=== PATIENT | female | born 1950 | race Caucasian/White ===

== ENCOUNTER 2019-12-09 08:53 | Outpatient (CLI) | payer MEDICARE, SELFPAY ==
--- NOTE | ~2019-12-09 | XR_ITS ---
EXAMINATION: XR lumbar spine 2-3V DATE: 12/09/2019 09:30 INDICATION: Dorsalgia unspecified TECHNIQUE: Anteroposterior and lateral views of the lumbar spine, and cone-down lateral view of the l umbosacral junction were obtained. COMPARISON: 12/17/2017 FINDINGS: There are chronic burst fractures in the lower thoracic spine and at L1. A chronic compress ion fracture of L3 is noted. No acute lumbar fracture is identified. There is chronic moderate loss o f intervertebral disc space height at L3-4. Vertebral body alignment is maintained. Small degenerativ e osteophytes project from the anterior endplates of multiple vertebral bodies. There is severe facet osteoarthritis of the lower lumbar spine. The bowel gas pattern is normal. A moderate volume of colo honey stool is present. Mild hip osteoarthritis is noted. IMPRESSION: 1. Chronic fractures in the lower thoracic and lumbar spine without acute findings or significant int erval change. Reviewed, dictated and finalized at location A. IMPRESSION: 1. Chronic fractures in the lower thoracic and lumbar spine without acute findi ngs or significant interval change.
--- NOTE | ~2019-12-09 | XR_ITS ---
EXAMINATION: XR hip BI 2V w AP pelvis DATE: 12/09/2019 09:30 INDICATION: Dorsalgia unspecified, pain after fall TECHNIQUE: AP view of the pelvis and two views of each hip were obtained. COMPARISON: None. FINDINGS: Bone alignment is normal. There is no fracture. Mild hip osteoarthritis is noted. The soft tissues are unremarkable. IMPRESSION: 1. Mild osteoarthritis of the hips. Reviewed, dictated and finalized at location A.
== END 2019-12-09 08:54 | disposition home or self-care (01) ==
PROVIDERS: PCP Family Medicine; Visit Provider Physician Assistant
DX: M54.9 Dorsalgia, unspecified (principal); W19.XXXA Unspecified fall, initial encounter; M16.0 Bilateral primary osteoarthritis of hip; M84.48XA Pathological fracture, other site, initial encounter for fracture
CPT/HCPCS: 72100; 73521

== ENCOUNTER 2020-05-01 11:26 | Emergency (ER) | payer MEDICARE, SELFPAY ==
--- NOTE | 2020-05-01 11:57 | ED.FEMALEGU ---
HPI - Female Genitourinary General Chief complaint: Urogenital-Female Stated complaint: pos uti Time Seen by Provider: 05/01/20 11:57 Source: patient Mode of arrival: ambulatory Limitations: physical limitation History of Present Illness HPI Narrative: Michelle Hanley is a 69 yo female with PMH of chronic back pain, multiple myeloma, and HTN, high cholesterol, with symptoms for 4 days of frequency and voiding small amounts no abdominal pain. She also has excessive nasal drainage and nose is bleeding when blowing nose. During discussion with patient and her medical oncologist called in the room and her blood results from labs this morning have returned patient has pancytopenia with a platelet count of 18,000 and ANC of 9000. She is to be discharged from this facility and sent to [facility] emergency room for emergent admission for antibiotics and further work-up. I talked with her who agrees to transport her to mobile she lives 3 minutes from the [facility] so she could check her car home and he is going to drive her hospital. Patient is able to drive; hours symptoms are as described in the initial paragraph. Related Data Home Medications Medication Instructions Recorded Confirmed alprazolam [Xanax] 5 mg PO DAILY 05/01/20 05/01/20 colesevelam 3,750 mg PO DAILY 05/01/20 05/01/20 lenalidomide [Revlimid] 10 mg PO DAILY 05/01/20 05/01/20 Allergies Allergy/AdvReac Type Severity Reaction Status Date / Time Influenza Virus Vaccines Allergy Unknown Unknown Verified 05/01/20 12:00 Review of Systems Review of Systems: Narrative: CONSTITUTIONAL: Denies fever, chills, sweats. EYES: Denies visual changes, redness, discharge. ENT: Has rhinorrhea, no congestion, sore throat, otalgia. CARDIOVASCULAR: Denies chest pain, palpitations, edema. RESPIRATORY: Denies dyspnea, wheezing, cough GASTROINTESTINAL: Denies abdominal pain, nausea, vomiting, diarrhea. GENITOURINARY: Has dysuria, hematuria, abnormal discharge SKIN: Denies rash or itching. NEUROLOGIC: Denies numbness, or focal weakness. PSYCHIATRIC: Denies anxiety or depression. [facility], [facility] Past Medical History Medical History Essential (primary) hypertension Multiple myeloma Family History Family History Other Hypertension Social History Social History Smoking status: Former smoker Alcohol intake: current Comments At time of signature, I agree with nursing past medical, surgical, social and family history. There is no relevant family history pertinent to the presenting complaint. Exam Narrative: Exam Narrative: GENERAL: This is a well-nourished, well-developed patient, in mild distress. HEAD: normocephalic, atraumatic. EYES: Sclera clear/white. Vision is grossly intact. EARS: External ears normal, . Hearing grossly intact. NOSE: External nose normal without nasal discharge, nares without redness, no rhinorrhea. THROAT: Mucous membranes moist, NECK: Neck supple, CARDIOVASCULAR: Regular rate and rhythm without murmurs, gallops, or rubs. RESPIRATORY: Clear to auscultation. Breath sounds equal bilaterally. No wheezes, rales, or rhonchi. GASTROINTESTINAL: Abdomen soft, SKIN: warm, intact with no suspicious lesions or rash, good texture and turgor. NEURO: awake, alert, and oriented to person, place and time. There were no obvious focal neurologic abnormalities. Steady gait; mild tremor EXTREMITIES: Normal range of motion. BACK: Nontender without deformity Course Course Emergency Course: Patient to take her car home where her will take her directly to note [facility] - Female Genitourinary Differential Diagnosis Differential diagnosis: Likely urinary tract infection, vaginitis, cystitis and other (Has pancytopenia) Lab Data Labs: Urine Glucose Negative
== END 2020-05-01 12:56 | disposition home or self-care (01) ==
PROVIDERS: Emergency Provider Nurse Practitioner; PCP Family Medicine
DX: D61.818 Other pancytopenia (principal); Z87.891 Personal history of nicotine dependence; I10 Essential (primary) hypertension; E78.00 Pure hypercholesterolemia, unspecified; Z85.79 Personal history of other malignant neoplasms of lymphoid, hematopoietic and related tissues
CPT/HCPCS: 81003; 87077; 87086; 87088; 99213; G0463

== ENCOUNTER 2022-01-29 09:58 | Emergency (ER) | payer MEDICARE, SELFPAY ==
--- NOTE | ~2022-01-29 | XR_ITS ---
EXAMINATION: XR chest 2V 01/29/2022 11:01 INDICATION: Cough with fever PROCEDURE: AP portable chest COMPARISON: Comparison to multiple prior studies sequentially, with oldest reviewed study dated 04/2014. FINDINGS: The lungs are clear. The cardiomediastinal silhouette is within normal limits. There are no pleural effusions. There is no pneumothorax suspected. There is a calcification overlying the le ft lower chest corresponding to breast calcifications seen on prior CT. Port catheter tip in the SVC. There is scoliosis. IMPRESSION: 1: NO ACUTE CARDIOPULMONARY DISEASE. Reviewed, dictated and finalized at location A. CE SUPPORT CLERK
[2022-01-29 10:37] VITALS: BP 138/84; PULSE 122; RESP 16; TEMP 38.2; O2SAT 97
--- NOTE | 2022-01-29 11:23 | ED.GENADULT ---
HPI - General Adult General Chief complaint: Upper Respiratory Infection Stated complaint: cough,fever,runny nose,congestion Source: patient Mode of arrival: ambulatory Limitations: no limitations History of Present Illness HPI narrative: patient presents for evaluation of sick symptoms since the middle of this past week. Symptoms include productive cough of yellow sputum, sinus congestion, mucopurulent discharge from the nares, fatigue, and low-grade fever. T-max 100.4? F. No nausea, vomiting or diarrhea. She spent time with her grandchildren over and is wondering whether the exposed her to anything. She has a history of leukemia and multiple myeloma, status post chemotherapy, currently in remission. She has an upcoming appt with her oncologist. She states that they were aware of her symptoms and did not feel any treatment was indicated as she was afebrile to that time. She does not smoke. She states her has a chronic cough. She had COVID in May of this year. She took a home COVID test earlier this week which was negative. Related Data Home Medications Medication Instructions Recorded Confirmed colesevelam 3.75 gram oral powder 3,750 mg PO DAILY 05/01/20 05/01/20 packet lenalidomide 10 mg capsule 10 mg PO DAILY 05/01/20 05/01/20 (Revlimid) acyclovir 400 mg tablet mg 01/29/22 mercaptopurine 50 mg tablet mg 01/29/22 methotrexate sodium 2.5 mg tablet mg 01/29/22 nystatin 100,000 unit/mL oral 01/29/22 suspension pantoprazole 40 mg tablet,delayed mg PO 01/29/22 release potassium chloride 20 mEq meq PO 01/29/22 tablet,extended release(part/cryst) prednisone 50 mg tablet mg 01/29/22 Allergies Allergy/AdvReac Type Severity Reaction Status Date / Time Influenza Virus Vaccines Allergy Unknown Unknown Verified 01/29/22 10:27 Review of Systems Review of Systems: CONSTITUTIONAL: Reports fatigue and low-grade fever. Denies chills, or sweats. EYES: Denies visual changes, redness, or discharge. ENT: Reports sinus congestion, mucopurulent discharge from the nares and sore throat. CARDIOVASCULAR: Denies chest pain, palpitations, or edema. RESPIRATORY: Reports productive cough of yellow/green sputum. Denies shortness of breath. GASTROINTESTINAL: Reports chronic diarrhea, unchanged from her baseline. Denies abdominal pain, nausea, vomiting SKIN: Denies rash or itching. MUSCULOSKELETAL: Denies back pain, joint pain, or myalgia. NEUROLOGIC: Denies headache, numbness, dizziness, or weakness. PSYCHIATRIC: Denies anxiety or depression. [facility] Past Medical History Medical History (Updated 01/29/22 @ 11:50 by MICHAEL Hurtado, ) Essential (primary) hypertension Leukemia Multiple myeloma Surgical History Surgical History No pertinent past surgical history Family History Family History Mother Family history non-contributory Other Hypertension Social History Social History Smoking status: Former smoker Alcohol intake: current Substance use: never Living arrangements: with family Gender identity (if verbalized by the patient): Female Sexual Orientation (if Verbalized by the Patient): Straight or Heterosexual Spiritual care concerns: No Exam Narrative: GENERAL: Well-appearing, well-nourished, and in no acute distress. HEAD: Normocephalic, atraumatic. EYES: PERRLA and EOMI. ENT: Nares clear, no rhinorrhea or epistaxis. Mucous membranes moist. Oropharynx without tonsillar hypertrophy exudate or other lesions. Bilateral TMs pearly jacobson nonbulging NECK: Supple. No adenopathy or masses. No carotid bruits or JVD CHEST: cough present on exam. Clear to auscultation. No respiratory distress. No wheezes rales or rhonchi HEART: Regular rate and rhythm. No murmur heard. N
== END 2022-01-29 12:00 | disposition home or self-care (01) ==
PROVIDERS: Emergency Provider Nurse Practitioner; PCP Family Medicine
DX: J32.9 Chronic sinusitis, unspecified (principal); I10 Essential (primary) hypertension; Z85.6 Personal history of leukemia; Z87.891 Personal history of nicotine dependence
CPT/HCPCS: 71046; 87804; 99213; G0463

== ENCOUNTER → 2022-05-26 11:12 | Outpatient (CLI) | payer MEDICARE, SELFPAY ==
--- NOTE | ~2022-05-26 | XR_ITS ---
Right wrist Technique: PA, oblique, lateral, and ulnar deviation views were obtained. Clinical History: Swelling, mass Findings: No acute fracture or dislocation is seen. Osseous alignment is anatomic. Joint spaces are p reserved. Soft tissues are unremarkable. Impression: Unremarkable right wrist radiographs. Reviewed, dictated and finalized at location . Impression: Unremarkable right wrist radiographs.
== END ==
PROVIDERS: PCP Family Medicine; Visit Provider Physician Assistant
DX: R22.31 Localized swelling, mass and lump, right upper limb (principal)
CPT/HCPCS: 73110

== ENCOUNTER 2023-02-08 10:30 | Outpatient (RCR) | payer MEDICARE, SELFPAY ==
--- NOTE | 2023-01-31 13:34 | OTOPEVAL1 ---
Assessment and note entered by Ruslan Cunha, LORAINE/Amparo, CHT Evaluation Information Assessment Status Evaluation Diagnosis de Quervain's tenosynovitis, right wrist Subjective Information Patient reports experiencing symptoms for about the last 6 months. She had a round of therapy and this helped, however her had a shoulder replacement about a month ago and she's had to help him with his exercises and this has made her symptoms return. She had an injection last Monday 01/22 and since then she has been feeling very little pain. She has a wrist immobilizer and wears it at night and with activity during the day. Reported Pain Level Pain Score 0: Self Report Additional Pain Score Comments No pain at rest. In the last week the worst her pain has felt is 3/10. Assessment OT Clinical Summary Patient referred to OT with right wrist pain and dx of de Quervain's tenosynovitis, which impacts right hand use with ADLs. Skilled OT indicated to reduce pain and improve functional strength through use of modalities, manual therapy, and therapeutic exercise. Plan of Care Interventions Therapeutic Exercise,Manual Therapy,Hot Pack/Cold Pack,Ultrasound,Paraffin OT Services Indicated Yes Treatment Frequency and 1-2x/week for 4 weeks Duration These treatments will address the objective and functional deficits as defined above. The patient will be advanced safely and appropriately in order for the patient to progress towards his/her prior level of function. Additional exercises will be introduced and as well as a comprehensive home exercise program upon discharge, if needed, ?to ensure carryover of functional gains achieved in the clinic. This treatment plan has been reviewed and agreement upon by the patient.
--- NOTE | 2023-02-08 11:18 | OTOPDC ---
Assessment and note entered by LORAINE Barrett/Amparo, CHT Discharge Notification 02/08/23 Diagnosis de Quervain's tenosynovitis, right wrist Subjective Information Patient presents today on her 3rd OT treatment session requesting to cancel her remaining appointments. She states she's doing well and this time of year is really busy for her. She verbalized excellent understanding of HEP, immobilizer schedule, and utilizing heat/ice. Patient reporting she has been wearing the wrist immobilizer at night and during the day with any sort of lifting, laundry, and making the bed. She reports worst pain with lifting a picher of tea. Overall she reports she typically has no pain and avoids any activities that causes her pain. Reported Pain Level Pain Score 0: Self Report Additional Pain Score Comments Patient reports her wrist/thumb typically has no pain. In the last week the worst her wrist/thumb has felt is 3/10. Assessment OT Clinical Summary Patient referred to OT with right wrist pain and dx of de Quervain's tenosynovitis. She presents today requesting to wrap up therapy. Today she is having no pain with wrist ROM and is able to complete Heydi's test today with no pain. She is independent with all materials for pain management, ROM/tendon glides, and strengthening. Discharging today with goals partially met.
== END 2023-02-08 12:50 | disposition home or self-care (01) ==
LOC: ANHOT 10:30
PROVIDERS: PCP Family Medicine; Visit Provider Plastic Surgery
DX: M65.4 Radial styloid tenosynovitis [de Quervain] (principal)
CPT/HCPCS: 97018; 97035; 97110; 97165

== ENCOUNTER 2023-12-26 17:50 | Emergency (ER) | payer MEDICARE, SELFPAY ==
--- NOTE | ~2023-12-26 | CT_ITS ---
EXAMINATION: CT brain wo con DATE: 12/26/2023 18:23 INDICATION: fall, hit head . TECHNIQUE: Computed tomography (CT) of the head was performed without intravenous contrast. The mA wa s adjusted according to patient size. Iterative reconstruction technique was employed. The dose-lengt h product was 605.33 mGy-cm. COMPARISON: None. FINDINGS: No acute intracranial hemorrhage or extra-axial fluid collection. No hydrocephalus, mass, or herniation. No acute ischemic infarct. Unremarkable dural venous sinus attenuation. No acute osseous abnormality. The aerated spaces are clear. Mild atrophy and chronic white matter change. Atherosclerotic intracranial calcification. Bilateral b esme ganglia calcification. IMPRESSION: No acute intracranial process. Reviewed, dictated and finalized at location K.
--- NOTE | ~2023-12-26 | XR_ITS ---
EXAM: XR knee RT 3V DATE: 12/26/2023 22:03 HISTORY: pain s/p fall . COMPARISON: None available. FINDINGS: Osteopenia. No fracture or dislocation. No lytic or blastic lesion. Tricompartmental osteo arthritic change. No erosion or periosteal change. Atherosclerotic calcifications. IMPRESSION: No acute osseous finding in the right knee. Reviewed, dictated and finalized at location K.
--- NOTE | ~2023-12-26 | XR_ITS ---
EXAM: XR hip RT 2V w AP pelvis DATE: 12/26/2023 22:03 HISTORY: Right groin pain . COMPARISON: 12/09/2019. FINDINGS: Osteopenia. No fracture or dislocation. No lytic or blastic lesion. Lumbar degenerative di sc disease. Mild bilateral hip osteoarthritis. Degenerative change at the pubic symphysis, with chond rocalcinosis. No erosion or periosteal change. Soft tissues within normal limits. IMPRESSION: No acute osseous finding in the pelvis or right hip. Reviewed, dictated and finalized at location K.
--- NOTE | ~2023-12-26 | XR_ITS ---
EXAM: XR shoulder RT min 2V, XR humerus RT DATE: 12/26/2023 18:42 HISTORY: fall, shoulder pain . COMPARISON: None available. FINDINGS: Right chest implanted port. Osteopenia. Comminuted right humeral head fracture with 9 mm m edial 11 mm anterior displacement. Fracture lines appear to involve the greater tuberosity and extend ing to the articular surface. No lytic or blastic lesion. No erosion or periosteal change. Soft tissu es within normal limits. IMPRESSION: Comminuted, likely intra-articular, displaced right humeral head fracture. Reviewed, dictated and finalized at location K. IMPRESSION: Comminuted, likely intra-articular, displaced right humeral head fr acture.
[2023-12-26 17:51] VITALS: BP 136/62; PULSE 85; RESP 18; TEMP 36.6; O2SAT 100
--- NOTE | 2023-12-26 18:25 | ED_ITS ---
HPI - Fall General Chief Complaint: Fall <Susan Ismael Guzmán APRN - Last Filed: 01/04/24 09:08> Stated Complaint: fall <Susan ChristensenGage Guzmán APRN - Last Filed: 01/04/24 09:08> Time Seen by Provider: 12/26/23 18:00 <Susan Ismael Guzmán APRN - Last Filed: 01/04/24 09:08> Focused HPI: patient is a 73-year-old female who presents to the ER after a fall this afternoon. She reports she was visiting a friend and missed a step on hardwood. Patient reports her head hit floor, along with the right side of her body. She endorses significant right humeral pain and reports she is unable to move her arm. Patient reports she has a history of multiple myeloma for which she is currently being treated. She also endorses a history of fainting easily. Patient denies shortness of breath, chest pain, one-sided numbness/tingling/weakness. GENERAL: Well-appearing, well-nourished, and in mild distress d/t pain. HEAD: Normocephalic, laceration to R upper eyebrow currently covered with bandaid. CHEST: Clear to auscultation. ?No respiratory distress. HEART: Regular rate and rhythm.? NEURO: ?Alert and oriented x3. Patient screened in triage and initial orders placed.? ?Additional care and disposition to be based upon?diagnostic testing and treatment. <Susan ChristensenGage Guzmán APRN - Last Filed: 01/04/24 09:08> History of Present Illness HPI Narrative: Patient is a 71-year-old female who presents emergency department with chief complaint of head injury and right shoulder pain. Patient reports that she was walking on a wood steps slipped and struck her head. The patient reports she landed on her right upper extremity and reports she has pain in her right shoulder and a small laceration on her forehead. The patient also reports he has pain in her right knee and right hip/pelvis area. <Reymundo Dennis MD - Last Filed: 12/26/23 23:35> Related Data Home Medications: Home Medications Medication Instructions Recorded Confirmed acyclovir 400 mg tablet 400 mg PO TID 01/29/22 10/24/23 pantoprazole 40 mg tablet,delayed mg PO 01/29/22 10/24/23 release potassium chloride 20 mEq meq PO 01/29/22 10/24/23 tablet,extended release(part/cryst) cetirizine 10 mg capsule (Zyrtec) 10 mg PO DAILY PRN 11/07/22 10/24/23 mecobalamin (vitamin B12) 1,000 1,000 mcg PO DAILY 12/05/22 10/24/23 mcg chewable tablet ondansetron HCl 8 mg tablet mg PO 08/23/23 10/24/23 prochlorperazine maleate 10 mg mg PO 08/23/23 10/24/23 tablet dexamethasone 4 mg tablet 4 mg PO WEEKLY 10/24/23 10/24/23 ixazomib 4 mg capsule (Ninlaro) 4 mg PO 10/24/23 10/24/23 <Susan Guzmán, HELP DESK ANALYST - Last Filed: 01/04/24 09:08> Allergies/Adverse Reactions: Allergies Allergy/AdvReac Type Severity Reaction Status Date / Time bortezomib [From Velcade] AdvReac Mild Hives Verified 10/24/23 10:40 lisinopril AdvReac Mild Cough Verified 10/24/23 10:40 <Susan Guzmán, HELP DESK ANALYST - Last Filed: 01/04/24 09:08> [facility] Past Medical History Medical History: Medical History Asthma exacerbation De Quervain's tenosynovitis, right Ganglion of right hand <Susan Guzmán, HELP DESK ANALYST - Last Filed: 01/04/24 09:08> Family History Family History: Family History Mother Family history non-contributory Other Hypertension <Susan Guzmán HELP DESK ANALYST - Last Filed: 01/04/24 09:08> Social History Social History: Social History Smoking status: Former smoker Alcohol intake: current Alcohol use details: rarely Substance use: never Do You Feel Safe in your Home?: Yes Lack of Transportation: No Lack of Food: Never True Current Housing: I Have Housing Concerned About Future Housing: No Difficulty Paying Gas/Electric Bills: No Difficulty Paying for Meds: No Currently Unemployed: No Education: Master's Degree or Higher Difficulty w/ Childcare or Family Care: No Living arrangements: with family Gender identity (if verbalized by the patient): Female Sexual Orientation (if Verbalized by the Patient): Straight or Heterosexual Spiritual care concerns: No <Susan Guzmán APRN - Last Filed: 01/04/24 09:08> Exam Narrative: GENERAL: Well appearing, well-nourished, non-toxic, in no acute distress. HEAD: Normocephalic, atraumatic. NECK: Supple. No adenopathy, no masses. RESPIRATORY: Airway patent, respirations nonlabored. Clear to auscultation bilaterally, no rales, rhonchi, wheezing. CARDIOVASCULAR: Regular rate and rhythm without murmurs, rubs, or gallops. Peripheral pulses 2+ and equal bilaterally. ABDOMINAL: Soft, nontender, nondistended, no hepatosplenomegaly. Normoactive BS. MUSCULOSKELETAL: Moves all extremities. Strength/ROM intact without gross deformities. SKIN: Warm, dry, normal color. No rashes. NEURO: A&O X3. Speech clear. Cranial nerves II-XII grossly intact. Steady gait. No ataxic movements. PSYCHIATRIC: Appropriate mood and affect. Normal interaction. <Susan Guzmán, ULISES - Last Filed: 01/04/24 09:08> Course Vital Signs Vital signs: Vital Signs Temperature 36.6 C 12/26/23 17:51 Pulse Rate 85 12/26/23 17:51 Respiratory Rate 18 12/26/23 17:51 Blood Pressure 136/62 12/26/23 17:51 Pulse Oximetry 100 12/26/23 17:51 Oxygen Delivery Room Air 12/26/23 17:51 Temperature 36.6 C 12/26/23 17:51 Pulse Rate 89 12/26/23 23:01 Respiratory Rate 15 12/26/23 23:01 Blood Pressure 148/81 H 12/26/23 23:01 Pulse Oximetry 98 12/26/23 23:01 Oxygen Delivery Room Air 12/26/23 17:51 <Susan Guzmán APRN - Last Filed: 01/04/24 09:08> Vital Signs Temperature 36.6 C 12/26/23 17:51 Pulse Rate 85 12/26/23 17:51 Respiratory Rate 18 12/26/23 17:51 Blood Pressure 136/62 12/26/23 17:51 Pulse Oximetry 100 12/26/23 17:51 Oxygen Delivery Room Air 12/26/23 17:51 Temperature 36.6 C 12/26/23 17:51 Pulse Rate 89 12/26/23 23:01 Respiratory Rate 15 12/26/23 23:01 Blood Pressure 148/81 H 12/26/23 23:01 Pulse Oximetry 98 12/26/23 23:01 Oxygen Delivery Room Air 12/26/23 17:51 <Reymundo Dennis MD - Last Filed: 12/26/23 23:35> Discharge Plan Discharge Clinical Impression: Facial laceration, Fracture, humerus closed <Susan Guzmán APRN - Last Filed: 01/04/24 09:08> Patient Disposition: Home, Self-Care <Susan Guzmán APRN - Last Filed: 01/04/24 09:08> Condition: Stable <Susan Guzmán APRN - Last Filed: 01/04/24 09:08> Instructions: Antibiotic Form, Head Injury (ED), Skin Adhesive Care (ED), Proximal Humerus Fracture (ED) <Susan Guzmán APRN - Last Filed: 01/04/24 09:08> Prescriptions: No Action acyclovir 400 mg tablet 400 mg PO TID potassium chloride 20 mEq tablet,ER particles/crystals PO pantoprazole 40 mg tablet,delayed release (DR/EC) PO Zyrtec 10 mg capsule 10 mg PO DAILY PRN ondansetron HCl 8 mg tablet PO prochlorperazine maleate 10 mg tablet PO dexamethasone 4 mg tablet 4 mg PO WEEKLY Rx Instructions: 5 of the 4 mg tablets on Sunday Ninlaro 4 mg capsule 4 mg PO Rx Instructions: taken weekly on Sunday 3 out of 4 weeks mecobalamin (vitamin B12) 1,000 mcg tablet,chewable 1,000 mcg PO DAILY cholecalciferol (vitamin D3) 50 mcg (2,000 unit) capsule 50 mcg PO DAILY Qty: 30 0RF fluticasone furoate-vilanterol [Breo Ellipta] 200-25 mcg/dose blister with device 1 inh inhalation Q24H Qty: 180 1RF Rx Instructions: rinse mouth after use citalopram 40 mg tablet 40 mg PO DAILY Qty: 90 1RF losartan 25 mg tablet 25 mg PO DAILY Qty: 90 1RF alprazolam 0.5 mg tablet 0.5 mg PO BID Qty: 60 1RF atorvastatin 20 mg tablet 20 mg PO DAILY Qty: 90 3RF hydrocodone-acetaminophen 5-325 mg tablet 1 tablet PO Q6H PRN (Reason: pain) 3 Days Qty: 12 0RF sulfamethoxazole-trimethoprim [Bactrim DS] 800-160 mg tablet 1 tablet PO Q12H Qty: 14 0RF <Susan Guzmán APRN - Last Filed: 01/04/24 09:08> Follow-up/Referrals: Jean Weber MD [Physician] - Alaina Luna MD [Primary Care Provider] - <Susan Guzmán APRN - Last Filed: 01/04/24 09:08> Time of Disposition: 23:35 <Susan Guzmán APRN - Last Filed: 01/04/24 09:08> 23:35 <Reymundo Dennis MD - Last Filed: 12/26/23 23:35>
[2023-12-26] MEDS: HYDROcodone/acetaminophen (*CRX) 5-325 MG TABLET 1 TAB PO (21:36)
[2023-12-26 23:01] VITALS: BP 148/81; PULSE 89; RESP 15; O2SAT 98
--- NOTE | 2024-01-15 10:12 | PC.NURSE ---
LATE ENTRY This note is being entered to document information to the patient's record. The following information was omitted on [12/26/23], by [Felecia Lee RN]. Arm sling applied to Right upper extremity.
== END 2023-12-26 23:49 | disposition home or self-care (01) ==
PROVIDERS: Emergency Provider Emergency Medicine; PCP Family Medicine
DX: S42.291A Other displaced fracture of upper end of right humerus, initial encounter for closed fracture (principal); S01.111A Laceration without foreign body of right eyelid and periocular area, initial encounter; J45.909 Unspecified asthma, uncomplicated; Z87.891 Personal history of nicotine dependence; Z79.899 Other long term (current) drug therapy; W10.9XXA Fall (on) (from) unspecified stairs and steps, initial encounter
CPT/HCPCS: 70450; 73030; 73060; 73502; 73562; 99284; A4565; A9270

== ENCOUNTER 2025-01-30 08:59 | Outpatient (CLI) | payer MEDICARE, SELFPAY ==
--- NOTE | ~2025-01-30 | DEXA_ITS ---
Bone Density Report Name: ESTRADA ZABALA Age: 74 Sex: Female Ethnicity: White Date of : 1950 Indication: postmenopausal; screening for osteoporosis; Referring Provider: ADRIANE BAR Study: Bone densitometry was performed. Exam Date: January 30, 2025 Accession number: [id number] Bone Density: Region BMD T-score Z-score Classification AP Spine(L1-L4) 0.962 -0.8 1.5 Normal Femoral Neck (Left) 0.591 -2.3 -0.3 Osteopenia Total Hip (Left) 0.724 -1.8 -0.1 Osteopenia Femoral Neck (Right) 0.670 -1.6 0.4 Osteopenia Total Hip (Right) 0.729 -1.7 -0.1 Osteopenia Total Hip Mean 0.726 -1.8 -0.1 Osteopenia World Health Organization criteria for BMD impression classify patients as: Normal (T-score at or above -1.0), Osteopenia (T-score between -1.0 and -2.5), or Osteoporosis (T-score at or below -2.5). 10-year Fracture Risk(1): Major Osteoporotic Fracture 14% Hip Fracture 3.5% Reported Risk Factors: [place] (), Neck BMD=0.591, BMI=28.6 (1) FRAX(R) Version 3.08. Fracture probability calculated for an untreated patient. Fracture probability may be lower if the patient has received treatment. Impression: The patient has low bone mass, based on the Left Femoral Neck T-score. The patient has an estimated ten-year risk of hip fracture of 3.5% and an estimated ten-year risk of major fracture of 14%, based on the WHO FRAX algorithm. Discussion: BONE DENSITY IS LOW AT ONE OR MORE SKELETAL SITES. THE PATIENT'S BMD AND CLINICAL RISK FACTORS CONTRIBUTE TO THIS PATIENT'S INCREASED RISK OF FRACTURE. This patient's lowest T-score is low at one or more skeletal sites. It meets the World Health Organization's (WHO) criteria for ?low bone mass? (T-score between -1.0 and -2.5). The patient's 10-year risk of hip fracture as calculated by FRAX exceeds the threshold where pharmacological therapy is recommended by the National Osteoporosis Foundation (NOF). However, all treatment decisions require clinical judgment and consideration of individual patient factors, including patient preferences, comorbidities, previous drug use, risk factors not captured in the FRAX model (e.g., frailty, falls, vitamin D deficiency, increased bone turnover, interval significant decline in bone density) and possible under or overestimation of fracture risk by FRAX. The patient should follow a healthful lifestyle (good nutrition with adequate calcium and vitamin D, and appropriate weight-bearing exercise). Follow-Up: Consider a repeat BMD and Vertebral Fracture Assessment (VFA) exam in 2 years or sooner if medically necessary, to reassess this patient's status. Reported by: CATINA on 01/30/2025 9:42:00 AM. Reviewed, dictated and finalized at location A.
== END 2025-01-30 09:00 | disposition home or self-care (01) ==
LOC: ANHFOHIMG 09:00
PROVIDERS: PCP Family Medicine; Visit Provider Family Medicine
DX: Z78.0 Asymptomatic menopausal state (principal); M81.0 Age-related osteoporosis without current pathological fracture; M85.852 Other specified disorders of bone density and structure, left thigh; M85.851 Other specified disorders of bone density and structure, right thigh
CPT/HCPCS: 77080

== ENCOUNTER 2025-02-12 15:29 | Outpatient (CLI) | payer MEDICARE, SELFPAY ==
--- OUTSIDE RECORDS SUMMARY | 2025-02-10 08:04 | XMS_ITS | Encounter Summary ---
Author Organization [facility] Healthcare Address [address] [place] [address] Care Team Providers Care Continuous Linter Drier Operator Name Role Phone Xander Gutiérrez MD Unavailable Miscellaneous, Not In File Unavailable Unava ilable Alaina Luna MD Primary Care Provider + Encounter Details Date Type Department Care Team (Latest Contact Info) Description 02/10/2025 8:04 AM PRIVATE BRANCH EXCHANGE REPAIRER - 02/10/2025 11:59 PM [facility] Hospital Encounter [facility] [address] [place] [phone] 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) Discharge Disposition: Discharge to home or self care Social History Tobacco Use Types Packs/Day Years Used Date Smoking Tobacco: Former Cigarettes 0 05/10/1972 - 05/11/1975 Passive Smoke Exposure: Past Smokeless Tobacco: Never Comments:social only Alcohol Use Standard Drinks/Week Comments Yes 0 (1 standard drink = 0.6 oz pur e alcohol) [facility] Utilities Answer Date Recorded In the past 12 months has [employer] electric, gas, oil, or water company threatened to shut off services in your home? No 08/02/2023 Social Connection and Isolation Panel Answer Date Recorded In a typical week, how many times do you talk on the phone with family, friends, or neighbors? Three times a week 08/02/2023 How often do you get togethe r with friends or relatives? Three times a week 08/02/2023 How often do you attend [facility] or sikh services? Never 08/02/2023 Do you belong to any clubs o r organizations such as rastafarian groups, unions, fraternal or athletic groups, or school groups? No 08/02/2023 How often do you attend meet ings of the clubs or organizations you belong to? Never 08/02/2023 Are you , , di vorced, , never , or living with a partner? 08/02/2023 Overall Financial Resource Strain (CARDIA) Answe r Date Recorded How hard is it for you to pa y for the very basics like food, housing, medical care, and heating? Not very hard 08/02/2023 PHQ-2 Answer Date Recorded PHQ-2 Total Score 0 08/02/2023 Hunger Vital Sign Answer Date Recorded Within the past 12 months, y ou worried that your food would run out before you got the money to buy more. Never true 08/02/19 24 Within the past 12 months, t he food you bought just didn't last and you didn't have money to get more. Never true 08/02/2023 PRAPARE - Transportation Answer Date Re corded In the past 12 months, has l ack of transportation kept you from medical appointments or from getting medications? No 07/2023 In the past 12 months, has l ack of transportation kept you from meetings, work, or from getting things needed for daily living? No 08/02/2023 Housing Stability Vital Sign Answer Juan e Recorded In the last 12 months, was t here a time when you were not able to pay the mortgage or rent on time? No 08/02/2023 In the past 12 months, how m any times have you moved where you were living? 0 08/02/2023 At any time in the past 12 m [facility], were you homeless or living in a penitentiary (including now)? No 08/02/2023 AUDIT-C Answer Date Recorded Q1: How often do you have a drink containing alc ohol? Monthly or less 12/15/2024 Q2: How many drinks containi ng alcohol do you have on a typical day when you are drinking? 1 or 2 12/15/2024 Q3: How often do you have si x or more drinks on one occasion? Never 12/15/2024 Personal Safety Answer Date Recorded Have you ever been in or are you currently in a harmful physical or emotional relationship or is someone making you feel afraid or unsafe? Denies 08/01/2023 Comments No Sex and Gender Information Value Date Recorded Sex Assigned at Not on file Legal Sex Female 11:50 PM PRIVATE BRANCH EXCHANGE REPAIRER Gender Identity Female 06/14/2020 9:57 AM CDT Sexual Orientation Not on file documented as of this encounter Medications at Time of Discharge acyclovir (ZOVIRAX) 400 mg tabletIndications: 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) TAKE 1 TABLET BY MOUTH THREE TIMES DAILY FOR SHINGLES PREVENTION 90 tablet 3 01/29/2025 albuterol HFA (PROVENTIL HFA,VENTOLIN HFA,PROAIR HFA) 90 mcg/actuation inhaler INHALE 2 PUFFS EVERY 4 HOURS NEEDED FOR SHORTNESS OF BREATH OR WHEEZING 02/27/2022 ALPRAZolam (XANAX) 0.5 mg tablet Take 1 tablet (0.5 mg total) by mouth nightly as needed for anxiety 01/14/2021 atorvastatin (LIPITOR) 20 mg tablet Take 1 tablet (20 mg total) by mouth daily 11/15/2023 Breo Ellipta 200-25 mcg/dose diskus inhaler 03/08/2022 cetirizine (ZyrTEC) 10 mg tablet Take 1 tablet (10 mg total) by mouth daily 05/17/2016 cholecalciferol (VITAMIN D-3) 2,000 unit capsule Take 1 capsule (2,000 Units total) by mouth daily citalopram (CeleXA) 40 mg tablet Take 0.5 tablets (20 mg total) by mouth daily 30 tablet 11/23/2020 cyanocobalamin/fol ic acid (vitamin P89-rrwge acid) 500-400 mcg tabletIndications: B-cell acute lymphoblastic leukemia (ALL) (HCC) Take by mouth daily cyclobenzaprine (FLEXERIL) 5 mg tabletIndications: 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) Take 1 tablet (5 mg total) by mouth 3 (three) times a day as needed for muscle spasms 01/31/2024 losartan (COZAAR) 25 mg tabletIndications: B-cell acute lymphoblastic leukemia (ALL) (HCC) Take 1 tablet (25 mg total) by mouth daily 11/07/2022 mecobalamin, vitamin B12, 1,000 mcg tablet,chewable Take 1,000 mcg by mouth 12/05/2022 methylPREDNISolone (MEDROL) 32 mg tabletIndications: 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) Take 1 tablet (32 mg total) by mouth once as needed (for symptoms of a daratumumab related reaction at home prior to travel to the Emergency Department) 1 tablet 12/29/[address] (PROTONIX) 40 mg EC tabletIndications: B-cell acute lymphoblastic leukemia (ALL) (HCC),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),Gastroesopha geal reflux disease without esophagitis TAKE 1 TABLET(40 MG) BY MOUTH TWICE DAILY 60 tablet 2 12/01/2024 potassium chloride ER 20 mEq CR tabletIndications: 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) TAKE 1 TABLET(20 MEQ) BY MOUTH DAILY 90 tablet 11/13/2024 prochlorperazine (Compazine) 10 mg tabletIndications: 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) Take 1 tablet (10 mg total) by mouth every 6 (six) hours as needed for nausea or vomiting 60 tablet 3 12/29/2024 documented as of this encounter Discharge Disposition Disposition Code Departure Means Destination Discharge to home or self care documented in this encounter Plan of Treatment Upcoming Encounters Date Type Department Care Team (Late st Contact Info) Description 02/16/2025 8:26 AM PRIVATE BRANCH EXCHANGE REPAIRER Hospital Encounter [facility] [address] [place] [phone] documented as of this encounter Procedures Procedure Name Priority Date/Time Associated Diagnosis Comments EGFR STAT 02/10/2025 9:16 AM PRIVATE BRANCH EXCHANGE REPAIRER 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) DIFFERENTIAL AUTO STAT 02/10/2025 9:1 6 AM PRIVATE BRANCH EXCHANGE REPAIRER 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) CBC WITH AUTO DIFFERENTIAL STAT 02/10/2025 9:16 AM PRIVATE BRANCH EXCHANGE REPAIRER 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) COMPREHENSIVE METABOLIC PANEL STAT 02/10/2025 9:16 AM PRIVATE BRANCH EXCHANGE REPAIRER 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) documented in this encounter Results * eGFR (02/10/2025 9:16 AM PRIVATE BRANCH EXCHANGE REPAIRER) eGFR >90 >=60 mL/min/1. 73 m2 Comment: Interpretive Data Reference Interval Normal >/= 90 mL/min/1.73m2 Mildly decreased* 60 - 89 mL/min/1.73m2 Mildly to moderately decreased 45 - 59 mL/min/1.73m2 Moderately to severely decreased 30 - 44 mL/min/1.73m2 Severely decreased 15 - 29 mL/min/1.73m2 Kidney Failure < 15 mL/min/1.73m2 *Relative to young adult level Estimated glomerular filtration rate is determined by the 2020 CKD-EPI equation recommended by the National Kidney Foundation (A Unifying Approach to GFR Estimation: Recommendations of the NKF-ASK Task Force on Reassessing the Inclusion of Race in Diagnosing Kidney Disease, JASN 2020). The CKD-EPI equation should not be used for patients with unstable renal function and has not been validated in children and those over 70. Current interpretive data was last reviewed 2020. Testing performed by: [place] [address] Blood 02/10/2025 9:16 AM PRIVATE BRANCH EXCHANGE REPAIRER 02/10/2025 9:28 AM PRIVATE BRANCH EXCHANGE REPAIRER us Colleen Jaffe [employer] LAB BLOOD ORDERABLES Fin al Result STEPHANIE [id number] [address] Department [place] [address] * (ABNORMAL) Differential, auto (02/10/2025 9:16 AM PRIVATE BRANCH EXCHANGE REPAIRER) Pathologist [facility] Neutrophil abs 6.79(H) 1.50 - 6.50 K/cumm Comment:Testing performed by : [facility] [place] [address] Imm gran abs 0.03 0.00 - 0.10 K/cumm STEPHANIE BAER Comment:Testing performed by : [facility] [place] [address] Lymphocyte abs 1.19 0.80 - 3.30 K/cumm STEPHANIE BAER Comment:Testing performed by : [facility] [place] [address] Monocyte abs 1.05(H) 0.20 - 0.80 K/cumm CERNER CH Comment:Testing performed by : [facility] [place] [address] Eosinophil abs 0.24 0.00 - 0.50 K/cumm CERNER CH Comment:Testing performed by : [facility] [place] [address] Basophil abs 0.01 0.00 - 0.10 K/cumm CERNER CH Comment:Testing performed by : [facility] [place] [address] Neutrophil pct 72.9 % CERNER CH Comment: Interpretive Data Percent cell count reference ranges are not reported, since discordance with absolute values may lead to misinterpretation of CBC data. Current Interpretive Data was last revised on 2017. Testing performed by: [facility] [place] [address] Imm gran pct 0.3 % CERNER CH Comment: Interpretive Data Percent cell count reference ranges are not reported, since discordance with absolute values may lead to misinterpretation of CBC data. Current Interpretive Data was last revised on 2017. Testing performed by: [facility] [place] [address] Lymphocyte pct 12.8 % CERNER CH Comment: Interpretive Data Percent cell count reference ranges are not reported, since discordance with absolute values may lead to misinterpretation of CBC data. Current Interpretive Data was last revised on 2017. Testing performed by: [facility] [place] [address] Monocyte pct 11.3 % CERNER CH Comment: Interpretive Data Percent cell count reference ranges are not reported, since discordance with absolute values may lead to misinterpretation of CBC data. Current Interpretive Data was last revised on 2017. Testing performed by: [facility] [place] [address] Eosinophil pct 2.6 % CERNER CH Comment: Interpretive Data Percent cell count reference ranges are not reported, since discordance with absolute values may lead to misinterpretation of CBC data. Current Interpretive Data was last revised on 2017. Testing performed by: [facility] [place] [address] Basophil pct 0.1 % CERUSAMA Comment: Interpretive Data Percent cell count reference ranges are not reported, since discordance with absolute values may lead to misinterpretation of CBC data. Current Interpretive Data was last revised on 2017. Testing performed by: [facility] [place] [address] Blood 02/10/2025 9:16 AM PRIVATE BRANCH EXCHANGE REPAIRER 02/10/2025 9:28 AM PRIVATE BRANCH EXCHANGE REPAIRER us Colleen Jaffe NP LAB BLOOD ORDERABLES Fin al Result STEPHANIE [address] [address] Department [place] [address] * (ABNORMAL) CBC with auto differential (02/10/2025 9:16 AM PRIVATE BRANCH EXCHANGE REPAIRER) WBC 9.31 3.80 - 9.90 K/cumm Comment:Testing performed by : [facility] [place] [address] Hgb 10.9(L) 11.9 - 15.5 g/dL CERNER CH Comment:Testing performed by : [facility] [place] [address] Hct 32.8(L) 35.6 - 45.5 % CERNER CH Comment:Testing performed by : [facility] [place] [address] Plt 153 150 - 400 K/cumm CERUSAMA Comment:Testing performed by : [facility] [place] [address] MPV 10.2 9.1 - 12.3 fL CERNER CH Comment:Testing performed by : [facility] [place] [address] RBC 3.34(L) 3.90 - 5.20 M/cumm CERNER CH Comment:Testing performed by : [facility] [place] [address] MCV 98.2(H) 81.3 - 96.4 fL CERNER CH Comment:Testing performed by : [facility] [place] [address] MCH 32.6 27.1 - 33.3 pg STEPHANIE BAER Comment:Testing performed by : [facility] [place] [address] MCHC 33.2 32.3 - 35.7 g/dL STEPHANIE BAER Comment:Testing performed by : [facility] [place] [address] RDW CV 13.9 11.1 - 14.9 % STEPHANIE BAER Comment:Testing performed by : [facility] [place] [address] RDW SD 50.2(H) 35.7 - 48.1 fL STEPHANIE CH Comment:Testing performed by : [facility] [place] [address] NRBC abs 0.00 0.00 - 0.01 K/cumm STEPHANIE BAER Comment:Testing performed by : [facility] [place] [address] ANC Prelim 6.79(H) 1.50 - 6.50 K/cumm STEPHANIE BAER Comment: Interpretive Data The rapid ANC is a preliminary automated count and may vary from the final ANC (Neut Abs) reported in the WBC differential that follows. Current interpretive data was last revised 2024. Testing performed by: [facility] [place] [address] Blood 02/10/2025 9:16 AM PRIVATE BRANCH EXCHANGE REPAIRER 02/10/2025 9:28 AM PRIVATE BRANCH EXCHANGE REPAIRER us Colleen Jaffe FOOD SERVICE ASSOCIATE LAB BLOOD ORDERABLES Fin al Result STEPHANIE BAER [address] [address] Department [place] [address] * (ABNORMAL) Comprehensive metabolic panel (02/10/2025 9:16 AM PRIVATE BRANCH EXCHANGE REPAIRER) Sodium 135 135 - 145 mmol/L Comment:Testing performed by : [facility] [place] [address] Potassium, pl 3.8 3.3 - 4.9 mmol/L STEPHANIE BAER Comment:Testing performed by : [facility] [place] [address] Chloride 99 97 - 110 mmol/L CERNER CH Comment:Testing performed by : [facility] [place] [address] CO2 24 22 - 32 mmol/L CERNER CH Comment:Testing performed by : [facility] [place] [address] Anion gap 12 2 - 15 mmol/L CERNER CH Comment:Testing performed by : [facility] [place] [address] BUN 10 6 - 25 mg/dL CERNER CH Comment:Testing performed by : [facility] [place] [address] Creatinine 0.59(L) 0.60 - 1.10 mg/dL CERNER CH Comment:Testing performed by : [facility] [place] [address] Glucose 152 70 - 199 mg/dL CERNER CH Comment: Interpretive Data Fasting glucose >/= 126 mg/dl is diagnostic for diabetes. Fasting is defined as no caloric intake for at least 8 hours. Fasting glucose between 100 mg/dl to 125 mg/dl is diagnostic of prediabetes. In a patient with classic symptoms of hyperglycemia or hyperglycemic crisis, a random glucose >/= 200 mg/dl is diagnostic for diabetes. In the absence of unequivocal hyperglycemia, results should be confirmed by repeat testing. The classification and Diagnosis of Diabetes Diabetes Care 202; 46: S19-S40. Current interpretive data was last revised 2022. Testing performed by: [facility] [place] [address] Calcium 8.9 8.5 - 10.3 mg/dL CERNER CH Comment:Testing performed by : [facility] [place] [address] Bilirubin, total 0.4 0.1 - 1.2 mg/dL CERNER CH Comment:Testing performed by : [facility] [place] [address] Protein, pl 5.9(L) 6.5 - 8.5 g/dL CERNER CH Comment:Testing performed by : [facility] [place] [address] Albumin 4.0 3.5 - 5.0 g/dL CERNER CH Comment:Testing performed by : [facility] [place] [address] Alk phos 92 40 - 130 Units/L STEPHANIE BAER Comment:Testing performed by : [facility] at [facility], [place] [address] ALT 20 7 - 45 Units/L CERUSAMA CH Comment:Testing performed by : [facility] [place] [address] AST 23 10 - 45 Units/L CERUSAMA CH Comment:Testing performed by : [facility] [place] [address] Blood 02/10/2025 9:16 AM PRIVATE BRANCH EXCHANGE REPAIRER 02/10/2025 9:28 AM PRIVATE BRANCH EXCHANGE REPAIRER us Colleen Jaffe FOOD SERVICE ASSOCIATE LAB BLOOD ORDERABLES Fin al Result STEPHANIE BAER [address] [address] Department [place] [address] documented in this encounter Visit Diagnoses Diagnosis 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) documented in this encounter Care Teams Continuous Linter Drier Operator Relationship Specialty Start Date End Date Alaina Luna MD PCP - General Family Medicine 09/27/21 Xander Gutiérrez MD Medical Oncologist/Dobie Worker Medical Oncology 06/21/20 Miscellaneous, Not In File 11/19/20 documented as of this encounter
--- OUTSIDE RECORDS SUMMARY | 2025-02-12 16:04 | XMS_ITS | Encounter Summary ---
Author Organization [facility] Address [address] [place] [address] Phone Care Team Providers Care Pbx Inspector Name Role Phone Lm Sharma MD Primary Care Provider [phone] Xander Gutiérrez MD Unavailable Miscellaneous, Not In File Unavailable Unava ilable Alaina Luna MD Primary Care Provider + Encounter Details Date Type Department Care Team (Late st Contact Info) Description 06/24/2020 Documentation [facility] Oncology [address] [facility] Advanced Medicine 7th [place] [phone] Chu Weber Social History Tobacco Use Types Packs/Day Years Used Date Smoking Tobacco: Former Cigarettes 0 05/10/1972 - 05/11/1975 Smokeless Tobacco: Never Comments:social only AUDIT-C Answer Date Recorded Q1: How often do you have a drink containing alc ohol? Monthly or less 05/12/2020 Average Number of Drinks Not on file 021 Frequency of Binge Drinking Not on file 04/26 Comments No Sex and Gender Information Value Date Recorded Sex Assigned at Not on file Legal Sex Female 11:50 PM PILOT CONTROL OPERATOR Gender Identity Female 06/14/2020 9:57 AM CDT Sexual Orientation Not on file documented as of this encounter Plan of Treatment Upcoming Encounters Date Type Department Care Team (Late st Contact Info) Description 02/16/2025 8:26 AM PILOT CONTROL OPERATOR Hospital Encounter [facility] [place] [address] documented as of this encounter Visit Diagnoses Not on filedocumented in this encounter Additional Health Concerns Infection Onset Date Last Indicated Resolved Time COVID: Suspected 11/18/2020 11/18/2020 11/18/2020 11:19 PM CDT COVID: Suspected 01/22/2021 01/22/2021 01/23/2021 11:04 PM PILOT CONTROL OPERATOR COVID: Suspected 02/12/2022 02/12/2022 02/12/2022 11:57 AM PILOT CONTROL OPERATOR Rhino/Enterovirus 02/12/2022 02/12/2022 02/19/2022 3:05 AM PILOT CONTROL OPERATOR COVID: Suspected 02/28/2022 02/28/2022 02/28/2022 5:54 PM PILOT CONTROL OPERATOR COVID: Suspected 07/31/2023 07/31/2023 07/31/2023 4:33 PM CDT COVID: Suspected 08/03/2023 08/03/2023 08/03/2023 12:19 PM CDT Rhino/Enterovirus 11/19/2023 11/19/2023 11/26/2023 3:05 AM CDT documented as of this encounter Care Teams Pbx Inspector Relationship Specialty Start Date End Date Lm Sharma MD [address] [place] [address] PCP - General 05/10/16 09/26/21 Alaina Luna MD PCP - General Family Medicine 09/27/21 Xander Gutiérrez MD [address] [place] [address] Medical Oncologist/Spreader Medical Oncology 06/21/20 Miscellaneous, Not In File 11/19/20 documented as of this encounter
--- OUTSIDE RECORDS SUMMARY | 2025-02-12 16:05 | XMS_ITS | Clinical Summary ---
Author Organization [facility] Address [address] [place] [address] Phone Care Team Providers Care Warehouse Operations Manager Name Role Phone Josh Sharma MD Primary Care Provider Allergies No known active allergies Medications citalopram (CELEXA) 40 mg Oral tablet Take 1 Tab by mouth daily. 30 Tab 12 0 Active ALPRAZolam (XANAX) 0.5 mg tablet TK 1/2 TO 1 T PO Q 4 H PRA 1 7 Active amLODIPine (NORVASC) 5 mg tablet TK 1 T PO QD 1 7 Active atorvastatin (LIPITOR) 20 mg tablet TK 1 T PO QD 1 7 Active SYMBICORT 80-4.5 mcg/actuation HFA Aerosol Inhaler 3 7 Active WELCHOL 3.75 gram powder MX AND DRK 1 PACKET PO D PRF DH 0 7 Active REVLIMID 10 mg capsule 7 Active losartan (COZAAR) 50 mg tablet TK 1 T PO QD 1 7 Active cetirizine (ZyrTEC) 10 mg tablet Take 1 Tablet (10 mg) by mouth daily. 1 7 Active chlorpheniramin e (CHLOR-TRIMETON ) 4 mg tablet Take 1 Tablet (4 mg) by mouth every 6 hours as needed for Allergies. 7 Active famotidine (PEPCID AC) 10 mg tablet Take 1 Tablet (10 mg) by mouth 2 times daily. 7 Active fluticasone (FLONASE) 50 mcg/spray [place], Suspension Administer 2 Sprays in each nostril daily. 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 scoliosis Reactive airway disease 12/28/2010 LMP 05/200203/15/2009 Status post bilateral breast reduction 0 FH: Angiosarcoma Daughter 03/15/2009 Overview (03/15/2009): Daughter 2003 FH: heart disease 03/15/2009 Overview (03/15/2009): Father Osteopenia 03/15/2009 Overview (03/15/2009): Fosamax 05/2002 Endometrial polyp HTN (hypertension) Fibrocystic disease of breast Overview (03/15/2009): benign cyst, L breast Anxiety Encounters Date Type Department Care Team Description 12/17/2024 Transcribe Orders [facility] 5 [facility] [place] [address] Alaina Luna MD Asymptomatic menopausal state (Primary Dx); Age-related osteoporosis without current pathological fracture from Last 3 Months Family History Medical History Relation Name Comments Unknown Brother 1 Half-Mark Unknown Brother 2 Half-Dusty Hypertension Brother 3 Hardik Healthy Daughter 1 Twin-Jennifer Other Daughter 1 Twin-Jennifer Healthy Daughter 2 Twin-Yenny Cancer Daughter 3 Yesenia angiosarcoma, d ied 01/2004 Heart Disease Father Hypertension Father Heart Disease Maternal Grandfather Heart Disease Maternal Grandmother Other Mother infection that went to her brain that caused her to Healthy Other H-Maxi Parkinson's Disease Paternal Grandfather Cancer Paternal Grandmother megan dder and spread from there Hypertension Sister 1 Kaylah Hypertension Sister 2 Daksha controlled by d iet/exercise Breast Cancer Neg Hx Relation Name Status Comments Brother 1 Half-Mark Alive Brother 2 Half-Dusty Alive Brother 3 Hardik Alive Daughter 1 Twin-Jennifer Alive Daughter 2 Twin-Yenny Alive Daughter 3 Yesenia Father Maternal Grandfather Maternal Grandmother Mother Other H-Maxi Alive Paternal Grandfather Paternal Grandmother Sister 1 Kaylah Alive Sister 2 Daksha Alive Social History Tobacco Use Types Packs/Day Years Used Date Smoking Tobacco: Former Cigarettes 0 Q uit: 02/26/1975 Smokeless Tobacco: Never Alcohol Use Standard Drinks/Week Comments Yes 3.3 (1 standard drink = 0.6 oz p ure alcohol) Comments No Sex and Gender Information Value Date Recorded Sex Assigned at Not on file Legal Sex Female 5:35 AM POLISHER BRASS Gender Identity Not on file Sexual Orientation Not on file Occupation Industry Job Start Date Job End Date Not on file Not on file Not on file Not on file Last Filed Vital Signs Vital Sign Reading Time Taken Comments Blood Pressure 140/80 04/24/2012 1:30 PM POLISHER BRASS Pulse - - Temperature - - Respiratory Rate - - Oxygen Saturation - - Inhaled Oxygen Concentration - - Weight 66.2 kg (146 lb) 05/17/2016 11:10 AM CDT Height 157.5 cm (5' 2) 05/17/2016 11:10 AM CDT Body Mass Index 26.7 05/17/2016 11:10 AM CDT Plan of Treatment Upcoming Encounters Date Type Department Care Team (Late st Contact Info) Description 03/05/2025 10:30 AM POLISHER BRASS Appointment [facility] Jelm A [address] [facility] [address] [place] [phone] Alaina Luna MD [address] [place] [phone] Health Maintenance Due Date Last Done Comments DTAP/TDAP/TD VACCINES (1 - Tdap) 10/01/1970 FIT-DNA Q 3 years 10/01/1996 FIT/FOBT Q 1 year 10/01/1996 Flex Sig/CT Colonography Q 5 years 10/01/1996 RSV VACCINE (60+ or ) (1 - Risk 50-74 years 1-dose series) 10/01/2001 OSTEOPOROSIS SCREENING 05/17/2018 7, 05/20/2012, 10/01/2008, Additional history exists BREAST CANCER SCREENING 08/18/2023 08/18/19 23, 09/09/2019, 05/26/2016, Additional history exists INFLUENZA VACCINE (#1) 2024 , 12/01/2019, 12/30/2018, Additional history exists COLORECTAL SCREENING 05/17/2026 05/17/2016, 02/26/19 07 Colorectal Cancer Screening 05/17/2026 ZOSTER VACCINE Completed 10/15/2018, 07/11/2018 PNEUMOCOCCAL VACCINE 50+ YEARS Completed 02/05/2019 , 05/14/2017 Procedures Procedure Name Priority Date/Time Associated Diagnosis Comments MAMMO 3D NATHAN DIAGNOSTIC BILAT W OR WO CAD Routine 08/17/2022 11:23 AM CDT Benign lipomatous neoplasm XR DEXA BONE DENSITY AXIAL 1 OR MORE SITES Routine 05/20/2012 Special screening for osteoporosis from Last 3 Months or Most Recently Relevant to Health Maintenance Results * MAMMO DIAG BILAT 3D NATHAN W OR WO CAD (08/17/2022 11:23 AM CDT) Anatomical Region Laterality Modality Breast Bilateral Mammography 08/17/2022 11:2 3 AM CDT Impressions 08/17/2022 1:57 PM CDT IMPRESSION: Negative bilateral diagnostic mammogram. Recommend routine followup. OVERALL FINAL ASSESSMENT: BI-RADS CATEGORY 1: Negative DICTATION LOCATION: [facility] Narrative 08/17/2022 1:57 PM CDT BILATERAL DIAGNOSTIC DIGITAL MAMMOGRAM WITH 3D TOMOSYNTHESIS AND CAD DATE: 08/17/2022 11:23 AM HISTORY: Patient request for previous palpable lesion. COMPARISON: 09/09/2019 to 11/14/2010 TECHNIQUE: A bilateral diagnostic mammogram was performed. Low-dose full-field digital breast tomosynthesis examination was performed with 2D and 3D acquisitions. Examination is read in conjunction with computer aided detection. BREAST COMPOSITION: The breasts are almost entirely fatty. FINDINGS: No new masses, suspicious calcifications, or areas of asymmetry or distortion are identified. The images were reviewed using the CAD system. Post reduction changes are again noted bilaterally. Procedure Note Irma Armstrong MD - 08/17/2022 BILATERAL DIAGNOSTIC DIGITAL MAMMOGRAM WITH 3D TOMOSYNTHESIS AND CAD DATE: 08/17/2022 11:23 AM HISTORY: Patient request for previous palpable lesion. COMPARISON: 09/09/2019 to 11/14/2010 TECHNIQUE: A bilateral diagnostic mammogram was performed. Low-dose full-field digital breast tomosynthesis examination was performed with 2D and 3D acquisitions. Examination is read in conjunction with computer aided detection. BREAST COMPOSITION: The breasts are almost entirely fatty. FINDINGS: No new masses, suspicious calcifications, or areas of asymmetry or distortion are identified. The images were reviewed using the CAD system. Post reduction changes are again noted bilaterally. IMPRESSION: Negative bilateral diagnostic mammogram. Recommend routine followup. OVERALL FINAL ASSESSMENT: BI-RADS CATEGORY 1: Negative DICTATION LOCATION: [facility] Alaina Luna MD MAMMO ORDERABLES Final Resu lt * (ABNORMAL) XR DEXA BONE DENSITY AXIAL 1 OR MORE SITES (05/20/2012) Anatomical Region Laterality Modality Other Cecilio Mendez MD DIAGNOSTIC IMAGING ORDERABLE S Final Result from Last 3 Months or Most Recently Relevant to Health Maintenance [facility] Care Teams Warehouse Operations Manager Relationship Specialty Start Date End Date Josh Sharma MD [address] [place] [address] PCP - General Family Practice 11/14/10
--- OUTSIDE RECORDS SUMMARY | 2025-02-12 16:05 | XMS_ITS | Encounter Summary ---
Author Organization [facility] Address [address] [place] [address] Phone Care Team Providers Care Child Day Care Provider Name Role Phone Xander Gutiérrez MD Unavailable Miscellaneous, Not In File Unavailable Unava ilable Alaina Luna MD Primary Care Provider + Encounter Details Date Type Department Care Team (Late st Contact Info) Description 01/13/2025 Results Follow-Up [facility] Transplant [address] [facility] Floor 6 [place] [address] Colleen Jaffe, NABEEL [address] [facility] [address] [place] [address] Immunoglobulin free light chains, Immunoglobulin free light chains Social History Tobacco Use Types Packs/Day Years Used Date Smoking Tobacco: Former Cigarettes 0 05/10/1972 - 05/11/1975 Passive Smoke Exposure: Past Smokeless Tobacco: Never Comments:social only Alcohol Use Standard Drinks/Week Comments Yes 0 (1 standard drink = 0.6 oz pur e alcohol) [facility] Utilities Answer Date Recorded In the past 12 months has e electric, gas, oil, or water company threatened [...] week 08/02/2023 How often do you attend chur ch or taoism services? Never 08/02/2023 Do you belong to any clubs o r organizations such as denominational groups, unions, fraternal or athletic groups, or [...] any time in the past 12 m [facility], were you homeless or living in a snf (including now)? No 08/02/2023 AUDIT-C Answer Date [...] on file Legal Sex Female 11:50 PM IMPORT CUSTOMER SERVICE MANAGER Gender Identity Female 06/14/2020 9:57 AM CDT Sexual Orientation Not on file documented as of this encounter Plan of Treatment Upcoming Encounters Date Type Department Care Team (Late st Contact Info) Description 02/16/2025 8:26 AM IMPORT CUSTOMER SERVICE MANAGER Hospital Encounter [facility] Lab [address] [place] [phone] documented as of this encounter Visit Diagnoses Not on filedocumented in this encounter Care Teams Child Day Care Provider Relationship Specialty Start Date End Date Alaina Luna MD PCP - General Family Medicine 09/27/21 Xander Gutiérrez MD Medical Oncologist/Network Relay Tester Medical Oncology 06/21/20 Miscellaneous, Not In File 11/19/20 documented as of this encounter
--- OUTSIDE RECORDS SUMMARY | 2025-02-12 16:05 | XMS_ITS | Encounter Summary ---
Author Organization [facility] Address [address] [place] [address] Phone Care Team Providers Care Track Laborer Name Role Phone Lm Sharma MD Primary Care Provider [phone] Xander Gutiérrez MD Unavailable Miscellaneous, Not In File Unavailable Unava ilable Alaina Luna MD Primary Care Provider + Encounter Details Date Type Department Care Team (Late st Contact Info) Description 08/02/2021 Telephone [facility] Bone Marrow Transplant [address] [facility] [address] [facility] 7th Floor, [place] [address] Myron Pereyra Social History Tobacco Use Types Packs/Day Years [...] on file Legal Sex Female 11:50 PM TANK BUILDER Gender Identity Female 06/14/2020 9:57 AM CDT Sexual Orientation Not on file documented as of this encounter Plan of Treatment Upcoming Encounters Date Type Department Care Team (Late Contact Info) Description 02/16/2025 8:26 AM TANK BUILDER Hospital Encounter [facility] [address] [place] [phone] documented as of this encounter Visit Diagnoses Not on filedocumented in this encounter Additional Health Concerns Infection Onset Date Last Indicated Resolved Time COVID: Suspected 02/12/2022 02/12/2022 02/12/2022 11:57 AM TANK BUILDER Rhino/Enterovirus 02/12/2022 02/12/2022 02/19/2022 3:05 AM TANK BUILDER COVID: Suspected 02/28/2022 02/28/2022 02/28/2022 5:54 PM TANK BUILDER COVID: Suspected 07/31/2023 07/31/2023 07/31/2023 4:33 PM CDT COVID: Suspected 08/03/2023 08/03/2023 08/03/2023 12:19 PM CDT Rhino/Enterovirus 11/19/2023 11/19/2023 11/26/2023 3:05 AM CDT documented as of this encounter Care Teams Track Laborer Relationship Specialty Start Date End Date Lm Sharma MD [address] [place] [address] PCP - General 05/10/16 09/26/21 Alaina Luna MD PCP - General Family Medicine 09/27/21 Xander Gutiérrez MD [address] [place] [address] Medical Oncologist/Plow Mechanic Medical Oncology 06/21/20 Miscellaneous, Not In File 11/19/20 documented as of this encounter
--- OUTSIDE RECORDS SUMMARY | 2025-02-12 16:05 | XMS_ITS | Encounter Summary ---
Author Organization [facility] Address [address] [place] [address] Care Team Providers Care Press Assistant And Feeder Name Role Phone Unavailable Primary Care Provider Unavailabl e Encounter Details Date Type Department Care Team (Late st Contact Info) Description 01/29/2020 Lab Requisition [facility] DermPath Lab [address] [facility] [facility] [place] [address] Romana Guerrero MD [address] [facility] [address] [place] [address] Social History Tobacco Use Types Packs/Day Years Used Date Smoking Tobacco: Never Assessed Comments Unknown Sex and Gender Information Value Date Recorded Sex Assigned at Not on file Legal Sex Female 10:54 AM EDUCATION FINANCE PROCESSOR Gender Identity Not on file Sexual Orientation Not on file documented as of this encounter Plan of Treatment Not on file documented as of this encounter Procedures Procedure Name Priority Date/Time Associated Diagnosis Comments DERMATOPATHOLOGY Routine 01/28/2020 12:0 0 AM EDUCATION FINANCE PROCESSOR documented in this encounter Results * DERMATOPATHOLOGY (01/28/2020 12:00 AM EDUCATION FINANCE PROCESSOR) Case Report Dermatopathology Report Case: [id number] Authorizing Provider: Romana Guerrero MD Collected: 01/28/2020 12:00 AM Ordering Location: [facility] Care DermPath Lab Received: 01/29/2020 06:38 AM Pathologist: Mariah New MD Specimen: Skin, mid forehead 0 3:23 PM EDUCATION FINANCE PROCESSOR DERMATOPATHOLOGY LABORATORY Final Diagnosis Specimen A. SKIN, mid forehead: SUPERFICIAL PORTION OF EPIDERMIS WITH PARAKERATOSIS (L98.9) (see microscopic description and comment) 0 3:23 PM EDUCATION FINANCE PROCESSOR DERMATOPATHOLOGY LABORATORY at 1523 EDUCATION FINANCE PROCESSOR Clinical History [place] papule, [facility], SK, BCC. 0 3:23 PM [facility] DERMATOPATHOLOGY LABORATORY Gross Description Specimen A: Received is one formalin filled container labeled with the patient's name and designated mid forehead. The specimen consists of a shave measuring [id number]. Jar 0. 0 3:23 PM [facility] DERMATOPATHOLOGY LABORATORY Microscopic Description Specimen A. SKIN, mid forehead: The specimen samples only stratum corneum and upper portions of cellular epidermis with atypia. Minimal lower epidermis and dermis are available for evaluation. Additional deeper sections were obtained and reviewed. COMMENT: Although the histologic features may represent the superficial aspect of a hypertrophic actinic keratosis, a squamous cell carcinoma or other underlying malignancy cannot be excluded. 0 3:23 PM [facility] DERMATOPATHOLOGY LABORATORY Disclaimer An external and internal positive and negative controls are appropriate for the histochemical, immunohistochemical and immunofluorescence stain(s) in this case (if any), except where stated explicitly. The performance characteristics of the stain(s) cited in this report were developed and its performance characteristic determined by the Dermatopathology Laboratory at [facility], directed by Dr. Placido Redman. These tests need not be, and therefore are not, approved by the [place] Food and Drug Administration. The tests are used for clinical purposes. Billing Codes Specimen Charges Stain Charges 13663 1 0 3:23 PM [facility] DERMATOPATHOLOGY LABORATORY Embedded Images 0 3:23 PM [facility] DERMATOPATHOLOGY LABORATORY Pathology/Cytolog y TISSUE SPECIMEN FROM SKIN / Unknown 01/28/2020 01/29/2020 6:38 AM EDUCATION FINANCE PROCESSOR us Romana Guerrero MD LAB - PATHOLOGY/CYTOLOGY ORD ERABLES Final Result DERMATOPATHOLOGY LABORATORY [facility] - Department of Dermatology [address] [place] [address], [facility] [phone] documented in this encounter Visit Diagnoses Not on filedocumented in this encounter
--- OUTSIDE RECORDS SUMMARY | 2025-02-12 16:05 | XMS_ITS | Encounter Summary ---
Author Organization [facility] Address [address] [place] [address] Care Team Providers Care Healthcare Facility Administrator Name Role Phone Unavailable Primary Care Provider Unavailabl e Encounter Details Date Type Department Care Team (Late st Contact Info) Description 07/02/2023 Lab Requisition [facility] - DermPath Lab [address] [facility] [facility] [place] [place] [phone] Romana Guerrero MD [address] [facility] [address] [place] [address] Social History Tobacco Use Types Packs/Day Years Used Date Smoking Tobacco: Never Assessed Comments Unknown Sex and Gender Information Value Date Recorded Sex Assigned at Not on file Legal Sex Female 10:54 AM TELETYPESETTER MONITOR Gender Identity Not on file Sexual Orientation Not on file documented as of this encounter Plan of Treatment Not on file documented as of this encounter Procedures Procedure Name Priority Date/Time Associated Diagnosis Comments DERMATOPATHOLOGY Routine 07/02/2023 10:2 9 AM CDT documented in this encounter Results * DERMATOPATHOLOGY (07/02/2023 10:29 AM CDT) Case Report Dermatopathology Report Case: [id number] Authorizing Provider: Romana Guerrero MD Collected: 07/02/2023 10:29 AM Ordering Location: [facility] - Received: 07/02/2023 02:09 PM DermPath Lab Pathologist: Susan Mccracken MD Specimen: Skin, left hip 2:30 PM CDT DERMATOPATHOLOGY LABORATORY Final Diagnosis Specimen A. SKIN, left hip: COMPOUND MELANOCYTIC NEVUS, IRRITATED (D22.72) POST-INFLAMMATORY PIGMENT ALTERATION (L81.9) 2:30 PM CDT DERMATOPATHOLOGY LABORATORY at 1430 CDT Clinical History Nevus, MM, irregular color, brown papule. 2:30 PM CDT DERMATOPATHOLOGY LABORATORY Gross Description Specimen A: Received is one formalin filled container labeled with the patient's name and designated left hip. The specimen consists of a shave biopsy measuring 7x7x1 mm. Jar 0. 2:30 PM CDT DERMATOPATHOLOGY LABORATORY Microscopic Description Specimen A. SKIN, left hip: There is melanin pigment in the stratum corneum. There are nests of melanocytes at the dermal-epidermal junction and within the dermis. There is abundant melanin within melanophages around the superficial vascular plexus. 2:30 PM CDT DERMATOPATHOLOGY LABORATORY Disclaimer An external and internal positive and negative controls are appropriate for the histochemical, immunohistochemical and immunofluorescence stain(s) in this case (if any), except where stated explicitly. The performance characteristics of the stain(s) cited in this report were developed and its performance characteristic determined by the Dermatopathology Laboratory at [facility], directed by Dr. Placido Redman. These tests need not be, and therefore are not, approved by the [place] Food and Drug Administration. The tests are used for clinical purposes. Billing Codes Specimen Charges Stain Charges 64830 1 2:30 PM CDT DERMATOPATHOLOGY LABORATORY Embedded Images 2:30 PM CDT DERMATOPATHOLOGY LABORATORY Pathology/Cytolo gy TISSUE SPECIMEN FROM SKIN / Unknown 07/02/2023 10:29 AM CDT 07/02/2023 2:09 PM CDT us Romana Guerrero MD LAB - PATHOLOGY/CYTOLOGY ORD ERABLES Final Result DERMATOPATHOLOGY LABORATORY [facility] - Department of Dermatology [address] [place] [address], [facility] [phone] documented in this encounter Visit Diagnoses Not on filedocumented in this encounter
--- OUTSIDE RECORDS SUMMARY | 2025-02-12 16:05 | XMS_ITS ---
Author Organization [facility] Address [address] [place] [address] Care Team Providers Care Freelance Recruiter Name Role Phone Xander Gutiérrez MD Unavailable Miscellaneous, Not In File Unavailable Unava ilable Alaina Luna MD Primary Care Provider + Active Problems Patient Care Coordination No te Formatting of this note is d ifferent from the original. 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 Phone: Fax: Venous Access & Care percutaneous central venous catheter (not-tunneled) Local Oncologist Contact Phone: Fax: Post-Discharge Office Visit (H30) Labs/tx support twice weekly at [facility] and Nplate weekly at [facility] RV 1/ Miscellaneous Notes: 11/18 (+) BCx = klebsiella pneumoniae 11/22 No NPLATE with inpatient, will resume as outpatient. Pending repeat BCx - NGTD. If (+) line holiday Problem Noted Date Diagnosed Date Lung nodule 12/22/2024 Overview (12/22/2024): 12.4.22 cxr normal. calcification overlying the left lower chest corresponding to breast calcifications seen on prior CT. Port catheter tip in the SVC. Major depressive disorder, single episode, unspe cified 12/22/2024 De Quervain's tenosynovitis, right 12/22/2024 Asthma, mild persistent 12/22/2024 Hearing loss 12/22/2024 Mixed hyperlipidemia 12/22/2024 Peripheral neuropathy 12/22/2024 Overview (12/22/2024): chemo Vitamin B12 deficiency 12/22/2024 Vitamin D deficiency, unspecified 12/22/2024 Chemotherapy induced neutropenia 05/17/2021 Idiopathic thrombocytopenic purpura (ITP) 2020 Acute lymphoblastic leukemia (ALL) 05/10/2020 Cancer Staging:Clinical stage from 05/10/2020: AMBULATORY NURSE involvement: Absent, Testicular involvement: Absent - Signed by Colleen Jaffe NP on 06/05/2020 Overview (12/22/2024): secondary Assessment & Plan (03/01/2022 6:16 AM ESTIMATING ENGINEER): 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 Current treatment is Mini-POMP maintenance which is on hold due to rhinovirus Assessment & Plan (01/22/2021 9:42 PM ESTIMATING ENGINEER): With a history of multiple myeloma, recently admitted for mod 4B mini-HCVD on 01/11. Received Neulasta OBI on 01/14 -s/p IT chemo in C1, 2, 3 with CSF negative for malignancy. -OI ppx with acyclovir, Holding bactrim and amox-clav while inpatient, restart on discharge. Assessment & Plan (11/19/2020 9:50 PM CDT): - pt have hx of B-ALL - BM biopsy 05/03/20 showed B-cell ALL, positive for CD10, CD19, CD20, CD22, CD34. - Repeat BM biopsy 05/10/20 showed B-cell ALL, Normal Cyto, FISH normal, Chromosome analysis normal, Tempus negative. - Initiated on mini-HCVAD mod 1A + inotuzumab + rituximab (D1 = 05/13/20) Inotuzumab initially held this cycle d/t prolonged QTc. IT chemotherapy also held d/t transfusion refractory TCP. - Now s/p cycle 1, 2, and 3 mod A with all LP negative for malignancy - 11/09/20 Day 1 received for R-MiniHCVD+inotuzmab mo 3B; -Day 2 LP negative for malignancy. Discharged to home on 11/12/2020 with Neulasta OBI. - Pt now being admitted for neutropenic fever and pancytopenia likely due to to recent chemotherapy. 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 No increased plasma cells. Repeat BMBx on 05/10 confirmed B-ALL with normal cytogenetics, FISH, and Tempus. Currently on R-mini HyperCVAD + Inotuzumab (mod1A 05/13 without IT chemo, initial dose inotuzumab held 2/2 prolonged QTc). IT Chemo x 2 received, 06/15 CSF w/ negative flow/cytology. 08/17 BM bx EDUARDO, MRD- Now admitted for mod3A, received previously postponed dose of Inotuzumab in [facility] prior to admission 10/02. Esophageal thickening 05/10/2020 Overview (05/11/2020): Added automatically from request for surgery [id number] Benign essential hypertension 05/01/2020 Assessment & Plan (08/01/2023 7:15 PM CDT): - Losartan Assessment & Plan (03/01/2022 6:06 AM ESTIMATING ENGINEER): Not on any anti hypertensive therapy, continue to monitor Gastroesophageal reflux disease without esophagi tis 05/01/2020 COPD without exacerbation (CMS/HCC) 05/01/2020 Coronary artery disease invo lving nome coronary artery of nome heart without angina pectoris 05/01/2020 Generalized anxiety disorder 10/13/2013 Overview (06/01/2016): Depression Assessment & Plan (01/22/2021 9:43 PM ESTIMATING ENGINEER): Continue home celexa Assessment & Plan (2020 8:57 PM CDT): Continue home celexa, xanax Multiple myeloma 12/09/2012 Cancer Staging:Clinical stage from 09/04/2012: Fcql-0-isxfftijspkca (mg/L): 3.1, Albumin (g/dL): 4, ISS: Stage I, High-risk cytogenetics: Unknown, LDH: Normal - Signed by Colleen Jaffe NP on 06/05/2020 Overview (12/22/2024): stem cell transplant Assessment & Plan (08/07/2023 1:18 PM CDT): - Currently on Pratibha/Pom/Dex. Holding due to infection/possible pneumonitis - OI ppx: ACV Assessment & Plan (03/01/2022 1:46 AM ESTIMATING ENGINEER): Diagnosed in November 2012 s/p Melphalan Autologous HSCTon 01/30/13 Assessment & Plan (11/19/2020 9:51 PM CDT): - Pt have Hx MM, s/p VRD x 4 cycles in 2012, followed by Melph Auto SCT 01/2013. - Maintenance Revlimid 04/2020, discontinued due to new treatment related ALL dx. - CTM Assessment & Plan (2020 8:12 PM CDT): Hx MM, s/p VRD x 4 cycles in 2012, followed by Melph Auto SCT 01/2013 Maintenance Revlimid [id number], discontinued due to new treatment related ALL dx Osteoporosis 08/01/2012 Arthralgia of hip 06/24/2012 Lumbago 06/24/2012 Current Treatment and Therapy Plans Daratumumab SUBCUTANEOUS / Carfilzomib / Dexamethasone 28 Day Cycles - Myeloma* Plan Start Date:12/23/2024 Plan Provider:Xander Gutiérrez MD Linked Problems 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) Treatment Medications Current Day (Day 2 2, Cycle 2 - Planned for 02/16/2025) Next Day (Day 1, Cycle 3 - Planned for 02/24/2025) carfilzomib (KYPROLIS)carfilzomib (KYPROLIS) IVPBdaratumumab-fihj (DARZALEX FASPRO) (DARZALEX FASPRO)daratumumab-fihj (DARZALEZ FASPRO) (DARZELEX FASPRO) daratumumab-fihj (DARZALEX FASPRO) 1,800 mg -30,000 units hyaluronidase subcutaneous injection carfilzomib (KYPROLIS) 96 mg in dextrose 5% 50 mL IVPBdaratumumab-fihj (DARZALEX FASPRO) 1,800 mg -30,000 units hyaluronidase subcutaneous injection IV Maintenance Therapy Plan* Plan Start Date:12/30/2024 Plan Provider:Xander Gutiérrez MD Linked Problems 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) Treatment Medications No medications scheduled. Past Treatment and Therapy Plans BMT/ONC IP BLOOD PRODUCTS Plan Name Start Date Discontinue Date Treatment Medications Discontinue Reason Plan Provider COVID-19 - BMT (CMV POSITIVE) ADULT BLOOD AND PLATELET ADMINISTRATION FOR INPATIENT 03/05/2022 No medications scheduled. Patient Discharged Estefania Zavala MD COVID-19 - BMT (CMV Negative/Untested) Adult Blood and Platelet Administration for Inpatient 11/20/2020 12/17/2020 No medications scheduled. Patient Discharged Shaun Ward MD COVID-19 - BMT (CMV NEGATIVE/UNTESTED) ADULT BLOOD AND PLATELET ADMINISTRATION FOR INPATIENT 2020 10/05/2020 No medications scheduled. Patient Discharged Chema Foster MD COVID-19 - BMT (CMV NEGATIVE/UNTESTED) ADULT BLOOD AND PLATELET ADMINISTRATION FOR INPATIENT 05/11/2020 08/27/2020 No medications scheduled. Patient Discharged Jean Grove MD Blood Products Plan Name Start Date Discontinue Date Treatment Medications Discontinue Reason Plan Provider COVID-19 - BMT (CMV NEGATIVE/UNTESTED) ADULT BLOOD AND PLATELET ADMINISTRATION FOR OUTPATIENT 05/28/2020 10/24/2021 No medications scheduled. Therapy Complete Xander Gutiérrez MD Line Care Plan Name Start Date Discontinue Date Treatment Medications Discontinue Reason Plan Provider IV Maintenance Therapy Plan 07/17/2023 09/05/2024 No medications scheduled. Therapy Complete Xander Gutiérrez MD ALTEPLASE (CATHFLO ACTIVASE) - ORDERS FOR OCCLUDED CATHETERS & IV Maintenance Therapy Plan 07/20/2020 04/04/2022 No medications scheduled. Therapy Complete Xander Gutiérrez MD Oncology Chemotherapy Treatment Plan Name Start Date Discontinue Date Treatment Medications Discontinue Reason Plan Provider Cycles Ixazomib Maintenance PO 28 Day Cycles - Myeloma 08/28/19 24 12/22/2024 ixazomib (NINLARO) Therapy Complete Xander Gutiérrez MD 16 of 18 cycles completed Elotuzumab / Pomalidomide / Dexamethasone 28 Day Cycles - Myeloma 07/03/19 24 08/14/2023 elotuzumab (EMPLICITI)elotuzumab (EMPLICITI) IVPB in 250 mLpomalidomide (POMALYST) Toxicity/Com plication Xander Gutiérrez MD 1 of 12 cycles completed POMP for miniHCVD [(methotrexate / 6-mercaptopuri ne only) (NO vincristine/Pr ed stopped C14)] - ALL 202003/05/2023 mercaptopurine (PURINETHOL)methotrexa tevinCRIStine Therapy Complete Xander Gutiérrez MD 23 of 26 cycles completed MiniHCVD + Inotuzumab + RiTUXimab 021 01/18/2021 cycloPHOSphamide (CYTOXAN)cycloPHOSpham manolo (CYTOXAN) IVPB (vial 20 mg/mL) (J9075)cytarabine (SATISH-C) IVPB (for doses <1,000 mg/m2)cytarabine-hydro cortisone intrathecalinotuzumab (BESPONSA) ivpb (BESPONSA)inotuzumab ozogamicin (BESPONSA)leucovorinme thotrexatemethotrexate IVPB in 100 mLmethotrexate IVPB in 250 mLmethotrexate-hydroco rtisone (PF) intrathecalriTUXimab-p vvr (RUXIENCE)riTUXimab-pv vr (RUXIENCE) IVPB in 250 mLriTUXimab-pvvr (RUXIENCE) IVPB in 500 mLvinCRIStinevinCRISti ne (ONCOVIN) IVPB in 50 mL Therapy Complete Nicole Coles MD PhD 8 of 8 cycles completed Oncology Supportive Care Therapy Plan Plan Name Start Date Discontinue Date Treatment Medications Discontinue Reason Plan Provider Romiplostim (NPLATE) Injection & HYDRATION THERAPY PLAN & ALTEPLASE (CATHFLO ACTIVASE) - ORDERS FOR OCCLUDED CATHETER... 09/07/2020 11/14/2022 No medications scheduled. Orders Xander Gutiérrez MD Hydration Therapy plan 07/20/2020 09/03/2020 No medications scheduled. Therapy Complete Xander Gutiérrez MD Infectious Workup 06/29/2020 07/20/2020 No medications scheduled. Therapy Complete Xander Gutiérrez MD Specialty Infusion Treatment Plan Name Start Date Discontinue Date Treatment Medications Discontinue Reason Plan Provider EVUSHELD 300 MG/300 MG STANDARD DOSE 11/22/2021 01/16/2022 No medications scheduled. Therapy Complete Xander Gutiérrez MD ADULT COVID-19 MONOCLONAL ANTIBODY THERAPY - EMERGENCY USE AUTHORIZATION & IV MAINTENANCE THERAPY PLAN 06/10/2021 06/16/2021 No medications scheduled. Therapy Complete Xander Gutiérrez MD Specialty Infusion Treatment 3 Plan Name Start Date Discontinue Date Treatment Medications Discontinue Reason Plan Provider IV MAINTENANCE THERAPY PLAN 06/09/2021 06/09/2021 No medications scheduled. Therapy Complete Xander Gutiérrez MD Lifetime Dose Tracking * Chemical Lifetime Dose Automatic Entry Manual Entr y Radiation 28 mSv 28 mSv 0 mSv Fluoro Time 3.3 minutes 3.3 minutes 0 minutes cyclophosphamide 3,541.474 mg/m2 (5,664 mg) 3,541.474 mg/m2 (5,664 mg) 0 mg/m2 (0 mg) Air kerma at the reference point (Ka,r) 63 mGy 63 mGy 0 mGy DLP 769 mGycm 769 mGycm 0 mGycm Resolved Problems Problem Noted Date Diagnosed Date Resolved Date Hyponatremia 08/01/2023 08/07/2023 Assessment & Plan (08/05/2023 11:22 AM CDT): - Na 134 upon admission, mild. Likely 2/2 sepsis, pneumonia. Resolved. Anemia 08/01/2023 11/13/2023 Assessment & Plan (08/01/2023 7:12 PM CDT): - 2/2 MM, chemo. - Transfuse per BMT protocol. Hypogammaglobulinemia 08/01/20232024 Assessment & Plan (08/03/2023 2:42 PM CDT): - 2/2 MM. IgG <300. - IVIG given inpatient d/t c/f severe infection. Acute hypoxic respiratory failure 07/31/2023 08/07/2023 Assessment & Plan (08/05/2023 8:06 AM CDT): 72F with multiple myeloma (dx'd 2012) s/p ALL (dx'd 2020), Velcade/Revlimid/Dexamethasone induction in 09/2012, s/p Melph/Auto SCT 01/2013, s/p revlimid (d/c 03/2020 d/t B-cell ALL dx), mini-HCVD + Inotuzumab + Rituximab induction in 04/2020; mini-POMP maintenance (no Vincristine; Mercaptopurine + Methotrexate + Prednisone) (started 02/2021, completed 01/09/2023); started elotuzumab, pomalidomide, dexamethasone 07/03/2023 (most recent dose 07/16); p/w fever, SOB. Patient presenting with SOB, fever, conjunctivitis (now resolved) , rhinorrhea, diarrhea. Of note, she started elotuzumab, pomalidomide, dexamethasone on 07/03/2023 (most recent dose 07/16). Elotuzumab (targets SLAMF7) and pomalidomide (immunomodulator) are both a/w pneumonitis. CTPE with b/l widespread GGO opacities; new compared to 05/16/3023 scan. Bronch with BAL 08/02: 368 nucleated cells (14%, neutrophils, 35% lymphs, 51% macro). Neg/wnl RPP, CMV, stain, PJP DFA and all cultures negative to date. Her chest x-ray was improved yesterday and her oxygen saturations are good on 1 L supplemental oxygen. Her relatively rapid improvement would suggest an infectious etiology as opposed to pulmonary toxicity from her chemo. Recommendations - abx per primary team - change Solu-Medrol oral prednisone and taper by 10 mg daily every three days - decrease oxygen as tolerated until discontinued. Keep SpO2 greater than 90% - oxygen assessment prior to discharge Assessment & Plan (08/07/2023 1:21 PM CDT): - Patient presented with SpO2 70's, improved to 90s on 4L NC - Ddx include pneumonia vs possibly chemo-induced pneumonitis - Completed course of cefepime x 7 days on 08/05 - Pulm c/s - recommended bronch, steroid taper. MP 60 mg IV daily (08/01-08/03) --> Pred 60 mg daily (08/04) with taper by 10 mg every 3 days until off. - Bronch with BAL (08/02) - 368 nuc cells (Neut 14%, Lymph 35%, Macro 51%). RPP neg, HSV PCR neg, CMV PCR neg, Pneumocystis DFA neg, AFB Cx/stain NGTD, Fungal Cx NGTD. Aerobic gram stain with abdundant polymorphonuclear leukocytes, abundant squamous epithelial cells indicating excessive oropharyngeal contamination, Abundant mixed bacterial aliyah on gram stain, Aerobic Cx NGTD - Weaned O2 back to RA - Repeat CXR (08/03) - slight improvement in mild interstitial and patchy opacities - Home O2 eval (08/05): 0L with rest, 3L with exertion. - Also noted to desat with SpO2 80% overnight while sleeping, improving with 1L NC. Outpatient referral for sleep study. Multifocal pneumonia 03/01/2022 025 Assessment & Plan (03/01/2022 6:12 AM ESTIMATING ENGINEER): CTA chest was done which was negative for PE but demonstrated patchy ground- glass opacities throughout both lungs as well as lower lobe tree-in-bud opacities and areas of consolidation findings concerning for pneumonia. RVP negative. Treat empirically with cefe, azithromycin and Vanc. Follow blood cultures. Send MRSA pcr, urine legionella antigen. Start Mucinex DM and Tessalon for cough and congestion relief. Acute respiratory failure with hypoxia 03/01/2022 05/08/2022 Assessment & Plan (03/01/2022 6:15 AM ESTIMATING ENGINEER): Due to pneumonia in the background hx of reactive airway disease. Treatment of pneumonia and reactive airway disease as described elsewhere. Supplemental oxygen as need to maintain oxygen sats greater than 92%. Lactic acidosis 03/01/2022 03/01/2022 Conjunctivitis/Rhinitis 03/01/2022 03/04/2022 Assessment & Plan (03/01/2022 6:05 AM ESTIMATING ENGINEER): Likely allergic Afrin nasal spray prn, continue zyrtec Add Erythromycin ophth ointment for possibly bacterial conjunctivitis though symptoms ans signs more consistent with allergic Rhinitis 03/01/2022 03/01/2022 Reactive airway disease 03/01/202211/27 Assessment & Plan (03/01/2022 6:12 AM ESTIMATING ENGINEER): Resume home bronchodilator therapy Immunocompromised 04/12/2021 05/08/2022 Neutropenic fever 11/19/2020 02/06/2021 Assessment & Plan (01/22/2021 9:45 PM ESTIMATING ENGINEER): DDx includes bloodstream infection, viral etiology, typhlitis. - RVP to be done once platelet count improves (was 0 on admission) to rule out COVID-19 and other potential viral etiologies - CXR shows possible colitis. C diff testing pending, on IV vanc + cefe - follow up blood cultures. Assessment & Plan (11/19/2020 9:55 PM CDT): - Pt transferred from [facility] for neutropenic fever. - Bcx 11/18 positive for gram negative bacilli. Will follow up with sub culture ans sensitivity reports. - Sepsis work up sent again at [facility]. Bcx, CXr, Ua, - Prophylactic started on cefepime and vancomycin - ANC at [facility] 0 - Tyl for fever - CTM Pancytopenia 11/19/2020 05/08/2022 Assessment & Plan (01/22/2021 9:43 PM ESTIMATING ENGINEER): -Transfuse per BMT protocol for chemo induced pancytopenia. - once plt improve can do RVP Assessment & Plan (11/19/2020 9:47 PM CDT): - due to recent chemo therapy for ALL - Transfuse to keep Bhg >8 and Plts >10 - blood and plt transfusion consent obtained. Bleeding nose 11/19/2020 12/19/2021 Assessment & Plan (11/19/2020 10:33 PM CDT): - Pt had episode of nose bleed at [facility] due to thrombocytopenia, pancytopenia - No further nose bleed reported. - Pt received 1 unit of plt at [facility] - For now plt to keep above 10. If patient again bleed will transfuse to keep plt >50 - CTM. Afrin as needed Traumatic ecchymosis of left orbit 11/19/2020 05/08/2022 Assessment & Plan (11/19/2020 10:36 PM CDT): - pt reports she hit her head on sliding door at home around 1 week back. - she developed ecchymosis after 4-5 days after the trauma. ecchymosis is not painful. - Keep plt>10. - CTM Hypokalemia 05/28/2020 03/13/2021 Encounter for person [facility] 05/12/2020 05/08/2022 Moderate malnutrition 05/02/20202022 Neutropenic fever (CMS/HCC) 05/01/2020 12/02/2020 Severe sepsis 05/01/2020 08/07/2023 Assessment & Plan (08/06/2023 2:52 PM CDT): - p/w fever, tachycardia, cough SOB, AHRF, hyponatremia, dysuria with recent myalgia, malaise, BL conjunctivitis, rhinorrhea - 2/2 pneumonia, likely viral and secondary bacterial - RVP neg - CTPE - multifocal opacities - Bcx - NGTD - Sputum Cx/PCR if able to produce sample - MRSA nasal Cx neg - Legionella UAg neg - UA: 1+ LE, Nit-, WBC 6-10, Trace bacteria. Ucx NGTD - IVIG (07/31) - Cefepime (07/30-08/05), Azithromycin (07/30-08/03), Vancomycin (07/30-08/02) Assessment & Plan (03/01/2022 6:14 AM ESTIMATING ENGINEER): Due to pneumonia. Lactate normalized with IV fluids. Continue maintenance fluids. 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
--- OUTSIDE RECORDS SUMMARY | 2025-02-12 16:05 | XMS_ITS | Clinical Summary ---
Author Organization [facility] Address [address] [place] [address] Care Team Providers Care Production Boring Machine Operator Name Role Phone Xander Gutiérrez MD Unavailable Miscellaneous, Not In File Unavailable Unava ilable Alaina Luna MD Primary Care Provider + Allergies Active Allergy Reactions Criticality Noted Date Comments Lisinopril Cough Reaction: Cough, Bortezomib Other (See comments) Low 02/05/2019 Reaction: Eczema Reaction: Other Medications cetirizine (ZyrTEC) 10 mg tablet Take 1 tablet (10 mg total) by mouth daily 05/18/19 17 Active cholecalciferol (VITAMIN D-3) 2,000 unit capsule Take 1 capsule (2,000 Units total) by mouth daily Active citalopram (CeleXA) 40 mg tablet Take 0.5 tablets (20 mg total) by mouth daily 30 tablet 11/24/19 21 Active ALPRAZolam (XANAX) 0.5 mg tablet Take 1 tablet (0.5 mg total) by mouth nightly as needed for anxiety 01/15/20 21 Active albuterol HFA (PROVENTIL HFA,VENTOLIN HFA,PROAIR HFA) 90 mcg/actuation inhaler INHALE 2 PUFFS EVERY 4 HOURS NEEDED FOR SHORTNESS OF BREATH OR WHEEZING 02/27/19 23 Active Breo Ellipta 200-25 mcg/dose diskus inhaler 03/08/19 23 Active losartan (COZAAR) 25 mg tabletIndications :B-cell acute lymphoblastic leukemia (ALL) (HCC) Take 1 tablet (25 mg total) by mouth daily 11/08/19 23 Active cyanocobalamin/fo lic acid (vitamin U18-ntmxx acid) 500-400 mcg tabletIndications :B-cell acute lymphoblastic leukemia (ALL) (HCC) Take by mouth daily Active atorvastatin (LIPITOR) 20 mg tablet Take 1 tablet (20 mg total) by mouth daily 11/15/19 24 Active cyclobenzaprine (FLEXERIL) 5 mg tabletIndications :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) Take 1 tablet (5 mg total) by mouth 3 (three) times a day as needed for muscle spasms 01/31/20 24 Active potassium chloride ER 20 mEq CR tabletIndications :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) TAKE 1 TABLET(20 MEQ) BY MOUTH DAILY 90 tablet 11/14/[address] (PROTONIX) 40 mg EC tabletIndications :B-cell acute lymphoblastic leukemia (ALL) (HCC),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),Gastroesoph ageal reflux disease without esophagitis TAKE 1 TABLET(40 MG) BY MOUTH TWICE DAILY 60 tablet 2 12/02/19 25 Active mecobalamin, vitamin B12, 1,000 mcg tablet,chewable Take 1,000 mcg by mouth 12/06/19 23 Active methylPREDNISolon e (MEDROL) 32 mg tabletIndications :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) Take 1 tablet (32 mg total) by mouth once as needed (for symptoms of a daratumumab related reaction at home prior to travel to the Emergency Department) 1 tablet 12/30/19 25 Active prochlorperazine (Compazine) 10 mg tabletIndications :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) Take 1 tablet (10 mg total) by mouth every 6 (six) hours as needed for nausea or vomiting 60 tablet 3 12/30/19 25 Active acyclovir (ZOVIRAX) 400 mg tabletIndications :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) TAKE 1 TABLET BY MOUTH THREE TIMES DAILY FOR SHINGLES PREVENTION 90 tablet 3 01/30/20 25 Active acyclovir (ZOVIRAX) 400 mg tabletIndications :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) TAKE 1 TABLET BY MOUTH THREE TIMES DAILY FOR SHINGLES PREVENTION 90 tablet 3 08/27/19 25 025 Discontin ued(Reord er) Active Problems Patient Care Coordination No te Formatting of this note is d ifferent from the original. 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 Floor [address] Treatment Plan MiniHCVD +inotuzumab +Rituxan Clinical Trial Reason for Admission PNA Transplant/IEC Planning BMT/IEC Plan HLA typing/IDMs Insurance Approvals/Issues Discharge Planning Anticipated Discharge Date Patient Education Completed Issue to be Resolved Before Discharge Discharge Disposition Home Requests Sent to Case Management and/or Medical Assistants Post-Discharge Follow-Up Living Situation/Distance from [place], [place] (30 min) Caregiver Lab/Transfusion Frequency Labs [facility] [...] (ALL) 05/10/2020 Cancer Staging:Clinical stage from 05/10/2020: TERMITE CONTROL TECHNICIAN involvement: Absent, Testicular involvement: Absent - Signed by Colleen Jaffe NP on 06/05/2020 Overview (12/22/2024): secondary Assessment & Plan (03/01/2022 6:16 AM TECHNICAL DATA ANALYST): 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 Current treatment is Mini-POMP maintenance which is on hold due to rhinovirus Assessment & Plan (01/22/2021 9:42 PM TECHNICAL DATA ANALYST): With a history of multiple myeloma, recently [...] without IT chemo, initial dose inotuzumab held 2/ prolonged QTc). IT Chemo x 2 received, 06/15 CSF w/ negative flow/cytology. 08/17 BM bx EDUARDO, MRD- Now admitted for mod3A, received previously postponed dose of Inotuzumab in [facility] prior to admission 10/02. Esophageal thickening 05/10/2020 Overview (05/11/2020): Added automatically from request for surgery [id number] Benign essential hypertension 05/01/2020 Assessment & Plan (08/01/2023 7:15 PM CDT): - Losartan Assessment & Plan (03/01/2022 6:06 AM TECHNICAL DATA ANALYST): Not on any anti hypertensive therapy, continue to monitor Gastroesophageal reflux disease without esophagi tis 05/01/2020 COPD without exacerbation ([facility]/HCC) 05/01/2020 Coronary artery disease invo lving [place] coronary artery of [place] heart without angina pectoris 05/01/2020 Generalized anxiety disorder 10/13/2013 Overview (06/01/2016): Depression Assessment & Plan (01/22/2021 9:43 PM TECHNICAL DATA ANALYST): Continue home celexa Assessment & Plan (2020 8:57 PM CDT): Continue home celexagary Multiple myeloma 12/09/2012 Cancer Staging:Clinical stage from 09/04/2012: Dwos-3-sgqflxlivnvsq (mg/L): 3.1, Albumin (g/dL): 4, ISS: Stage I, High-risk cytogenetics: Unknown, LDH: Normal - Signed by Colleen Jaffe NP on 06/05/2020 Overview (12/22/2024): stem cell transplant Assessment & Plan (08/07/2023 1:18 PM CDT): - Currently on Pratibha/Pom/Dex. Holding due to infection/possible pneumonitis - OI ppx: ACV Assessment & Plan (03/01/2022 1:46 AM TECHNICAL DATA ANALYST): Diagnosed in November 2012 s/p Melphalan Autologous [...] by Melph Auto SCT 01/2013 Maintenance Revlimid [id number], discontinued due to new treatment related ALL dx Osteoporosis 08/01/2012 Arthralgia of hip 06/24/2012 Lumbago 06/24/2012 Resolved Problems Problem Noted Date Diagnosed Date [...] 025 Assessment & Plan (03/01/2022 6:12 AM TECHNICAL DATA ANALYST): CTA chest was done which was negative [...] 05/08/2022 Assessment & Plan (03/01/2022 6:15 AM TECHNICAL DATA ANALYST): Due to pneumonia in the background hx of reactive airway disease. Treatment of pneumonia and reactive airway disease as described elsewhere. Supplemental oxygen as need to maintain oxygen sats greater than 92%. Lactic acidosis 03/01/2022 03/01/2022 Conjunctivitis/Rhinitis 03/01/202204/26 Assessment & Plan (03/01/2022 6:05 AM TECHNICAL DATA ANALYST): Likely allergic Afrin nasal spray prn, continue zyrtec Add Erythromycin ophth ointment for possibly bacterial conjunctivitis though symptoms ans signs more consistent with allergic Rhinitis 03/01/2022 03/01/2022 Reactive airway disease 03/01/202211/27 Assessment & Plan (03/01/2022 6:12 AM TECHNICAL DATA ANALYST): Resume home bronchodilator therapy Immunocompromised 04/12/2021 05/08/2022 Neutropenic fever 11/19/2020 02/06/2021 Assessment & Plan (01/22/2021 9:45 PM TECHNICAL DATA ANALYST): DDx includes bloodstream infection, viral etiology, typhlitis. - RVP to be done once platelet count improves (was 0 on admission) to rule out COVID-19 and other potential viral etiologies - CXR shows possible colitis. C diff testing pending, on IV vanc + cefe - follow up blood cultures. Assessment & Plan (11/19/2020 9:55 PM CDT): - Pt transferred from [facility] for neutropenic fever. - Bcx 11/18 positive for gram negative bacilli. Will follow up with sub culture ans sensitivity reports. - Sepsis work up sent again at [facility]. Bcx, CXr, Ua, - Prophylactic started on cefepime and vancomycin - ANC at [facility] 0 - Tyl for fever - CTM Pancytopenia 11/19/2020 05/08/2022 Assessment & Plan (01/22/2021 9:43 PM TECHNICAL DATA ANALYST): -Transfuse per BMT protocol for chemo induced [...] Pt had episode of nose bleed at [facility]. likey due to thrombocytopenia, pancytopenia - No further nose bleed reported. - Pt received 1 unit of plt at [facility] - For now plt to keep [...] CTM Hypokalemia 05/28/2020 03/13/2021 Encounter for person [facility] 05/12/2020 05/08/2022 Moderate malnutrition 05/02/20202022 Neutropenic fever [...] - IVIG (07/31) - Cefepime (07/30-08/05), Azithromycin (6-08/03), Vancomycin (6-6) Assessment & Plan (03/01/2022 6:14 AM TECHNICAL DATA ANALYST): Due to pneumonia. Lactate normalized with IV fluids. Continue maintenance fluids. 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 12/02/2020 Weight loss 08/01/2012 10/22/2020 Notalgia 06/24/2012 05/08/2022 Pancytopenia 12/02/2020 Encounters Date Type Department Care Team Description 02/10/2025 9:45 AM TECHNICAL DATA ANALYST Infusion [place] [address] [place] [address] 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) (Primary Dx) 02/10/2025 9:15 AM TECHNICAL DATA ANALYST Clinical Support [place] [address] [place] [phone] 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) 02/10/2025 8:04 AM TECHNICAL DATA ANALYST - 02/10/2025 11:59 PM TECHNICAL DATA ANALYST Hospital Encounter [facility] [address] [place] [phone] 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) Discharge Disposition: Discharge to home or self care 02/03/2025 11:30 AM TECHNICAL DATA ANALYST Infusion [place] [address] [place] [phone] 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) (Primary Dx) 02/03/2025 11:00 AM TECHNICAL DATA ANALYST Clinical Support [place] [address] [place] [address] 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) 02/03/2025 8:45 AM TECHNICAL DATA ANALYST - 02/03/2025 11:59 PM TECHNICAL DATA ANALYST Hospital Encounter [facility] [address] [place] [phone] 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) Discharge Disposition: Discharge to home or self care 01/27/2025 12:30 PM TECHNICAL DATA ANALYST Infusion [facility] - [facility] [address] [facility] [address] [place] [address] 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) (Primary Dx) 01/27/2025 11:30 AM TECHNICAL DATA ANALYST Office Visit [facility] Medicine Bone Marrow Transplant [facility] [address] [place] [address] oClleen Jaffe NP 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) (Primary Dx) 01/27/2025 10:30 AM TECHNICAL DATA ANALYST Clinical Support [facility] [address] [place] [address] 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) 01/27/2025 10:15 AM TECHNICAL DATA ANALYST Clinical Support [facility] - Lab Collection [address] [facility] Floor 6 [place] [address] 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) 01/21/2025 Telephone [facility] [address] [place] [phone] Xander Gutiérrez MD 01/19/2025 9:45 AM TECHNICAL DATA ANALYST Infusion [place] [address] [place] [address] 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) (Primary Dx) 01/19/2025 9:15 AM TECHNICAL DATA ANALYST Clinical Support [facility] at [address] [phone] 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) 01/19/2025 8:44 AM TECHNICAL DATA ANALYST - 01/19/2025 11:59 PM TECHNICAL DATA ANALYST Hospital Encounter [facility] [address] [place] [phone] 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) Discharge Disposition: Discharge to home or self care 01/13/2025 9:15 AM TECHNICAL DATA ANALYST Infusion [place] [address] [place] [address] 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) (Primary Dx) 01/13/2025 9:10 AM TECHNICAL DATA ANALYST - 01/13/2025 11:59 PM TECHNICAL DATA ANALYST Hospital Encounter [facility] [address] [place] [phone] 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) Discharge Disposition: Discharge to home or self care 01/13/2025 8:30 AM TECHNICAL DATA ANALYST Clinical Support [place] [address] [place] [phone] 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) 01/13/2025 Results Follow-Up [facility] [address] [facility] [address] [place] [phone] Colleen Jaffe NP Immunoglobulin free light chains, Immunoglobulin free light chains 01/09/2025 Telephone [facility] [address] [place] [address] [place] [address] [place] [phone] Luis Alcantara MD Schedule Surgery 01/07/2025 11:40 AM TECHNICAL DATA ANALYST Office Visit [facility] [address] [place] [place] [address] [place] [address] [place] [phone] Luis Alcantara MD 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) (Primary Dx) 01/07/2025 11:00 AM TECHNICAL DATA ANALYST - 01/07/2025 11:59 PM TECHNICAL DATA ANALYST Hospital [facility] [address] [place] [phone] Luis Alcantara MD 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) Discharge Disposition: Discharge to home or self care 01/07/2025 Telephone [facility] [address] [place] [place] [address] [place] [address] [place] [phone] Luis Alcantara MD Physical Therapy 01/06/2025 9:15 AM TECHNICAL DATA ANALYST Infusion [place] [address] [place] [address] 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) (Primary Dx) 01/06/2025 8:30 AM TECHNICAL DATA ANALYST Clinical Support [place] [address] [place] [phone] 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) 01/06/2025 8:19 AM TECHNICAL DATA ANALYST - 01/06/2025 11:59 PM TECHNICAL DATA ANALYST Hospital Encounter [facility] [address] [place] [phone] 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) Discharge Disposition: Discharge to home or self care 12/30/2024 9:00 AM TECHNICAL DATA ANALYST Infusion [place] [address] [address] 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) (Primary Dx) 12/30/2024 8:30 AM TECHNICAL DATA ANALYST Clinical Support [place] [address] [place] [address] 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) 12/30/2024 7:21 AM TECHNICAL DATA ANALYST - 12/30/2024 11:59 PM TECHNICAL DATA ANALYST Hospital Encounter [facility] [address] [place] [phone] 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) Discharge Disposition: Discharge to home or self care 12/23/2024 2:00 PM CDT Office Visit [facility] Medicine Bone Marrow Transplant [address] [facility] 6 [place] [address] Xander Gutiérrez MD 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) (Primary Dx); 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) 12/23/2024 1:30 PM CDT Clinical Support [facility] - Lab Collection [address] [facility] Floor 6 [place] [address] 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); 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) 12/23/2024 Orders Only [facility] Medicine Bone Marrow Transplant [address] [facility] 6 [place] [address] Xander Gutiérrez MD 12/22/2024 Telephone [facility] Medicine Orthopaedic Surgery [address] [place] [address] 6th [place] [address] [place] [phone] Luis Alcantara MD Scheduling 12/19/2024 Orders Only [facility] Medicine Bone Marrow Transplant [address] [facility] 6 [place] [address] Xander Gutiérrez MD 12/19/2024 Orders Only [facility] 6 [place] [address] Capri Trimble RN 12/16/2024 9:28 AM CDT - 12/16/2024 11:59 PM CDT Hospital Encounter [facility] [address] [place] [phone] 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); 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) Discharge Disposition: Discharge to home or self care 12/16/2024 8:30 AM CDT Clinical Support [facility] at [address] [phone] 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); 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) 12/16/2024 Documentation [facility] [address] [phone] Colleen Jaffe NP 12/16/2024 Orders Only [facility] [address] [place] [phone] Capri Trimble RN 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) (Primary Dx); 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) 12/16/2024 Orders Only [facility] [address] [place] [address] Capri Trimble RN 12/15/2024 2:40 PM CDT Office Visit [facility] [address] [place] [address] 6th [place] [address] [place] [phone] Luis Alcantara MD 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) (Primary Dx); Right hip pain; Age-related osteoporosis with current pathological fracture, initial encounter; 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) 11/27/2024 Documentation [facility] [address] [facility] [address] [place] [address] Colleen Jaffe NP 11/24/2024 8:30 AM CDT Office Visit [facility] [address] [facility] 2nd Floor [address] [place] [phone] Ankit Carlton PA 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) (Primary Dx) 11/18/2024 3:00 PM CDT Office Visit [facility] [address] [facility] [address] [place] [address] Xander Gutiérrez MD 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); 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) 11/18/2024 2:30 PM CDT Clinical Support [facility] [place] - Lab Collection [address] [facility] [address] [place] [address] 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); 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) 11/18/2024 2:00 PM CDT Clinical Support [facility] [address] [address] 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); 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) from Last 3 Months Immunizations Immunization Administration Dates Next Due COVID-19 mRNA ([employer]) 0.3 m L (30 mcg) vaccine (12 years and up) 12/18/2024 IPV 02/05/2017 Influenza, Quad, Adjuvantate d, Intramuscular 12/03/2020 Influenza, Quadrivalent, Rec ombinant, Egg Free, Preservative Free, Intramuscular 12/01/2019 Influenza, Trivalent, High D ose, Split, Preservative Free, Intramuscular 12/23/2021,12/30/2018,11/29/2017 Influenza, Trivalent, IM (MDV) 6,12/17/2014,12/17/2012,01/01,12/08/2009 Influenza, Unspecified 12/08/2024,12/12/2022, Pfizer SARS-CoV-2 Monovalent Vaccination (12+ Yrs) PURPLE 01/06/2022,03/06/2021 Pfizer Sars-Cov-2 Bivalent V accination (12+ YRS) 12/06/2022,01/06/2022 Pneumococcal Conjugate PCV 13 05/14/2017 Pneumococcal Polysaccharide PPV23 2018(Deferred: Other - duplicate),02/05/2019 RSV Vaccine, Pref, Recombina nt, Subunit, Adjuvanted, PF, IM (Arexvy) 01/23/2023 Tdap 12/20/2004 ZOSTER Recombinant 10/15/2018,07/11/2018 Surgical History Surgery Date Site/Laterality Comments TUNNELED LINE PLACEMENT <5 YEARS 01/13/2013 N/A BIOPSY DEEP BONE 08/13/2012 N/A BIOPSY DEEP BONE 08/13/2012 N/A CENTRAL LINE PLACEMENT > 5 YEARS 05/10/2020 N/A COLONOSCOPY PORT PLACEMENT CHEST >5 YEARS 02/11/2021 N/A Medical History Medical History Date Comments GERD (gastroesophageal reflux disease) Hypertension Shortness of breath Depression Family History Medical History Relation Name Comments Hypertension Brother 1 Stroke Brother 2 Hypertension Brother 3 work accident Brother 3 angiosarcoma Daughter complications with heasrt valve surgery Father rare brain infection PML Mother abdominal cancer Paternal Grandmother No Known Problems Sister 1 No Known Problems Sister 2 Relation Name Status Comments Brother 1 Alive Brother 2 Brother 3 Daughter Father Maternal Grandfather Maternal Grandmother Mother Paternal Grandfather Paternal Grandmother Sister 1 Alive Sister 2 Alive Social History Tobacco Use Types Packs/Day Years Used Date Smoking Tobacco: Former Cigarettes 0 05/10/1972 - 05/11/1975 Passive Smoke Exposure: Past Smokeless Tobacco: Never Tobacco Cessation:Counseling Given: Not Answered Comments:social only Alcohol Use Standard Drinks/Week Comments Yes 0 (1 standard drink = 0.6 oz pur e alcohol) [facility] Utilities Answer Date Recorded In the past 12 months has e [employer], gas, oil, or water [employer] threatened to shut off services in your [...] often do you attend chur ch or taoist services? Never 08/02/2023 Do you belong to any clubs o r organizations such as hindu groups, unions, fraternal or athletic groups, or [...] any time in the past 12 m [facility], were you homeless or living in a [facility] (including now)? No 08/02/2023 AUDIT-C Answer Date [...] on file Legal Sex Female 11:50 PM TECHNICAL DATA ANALYST Gender Identity Female 06/14/2020 9:57 AM CDT Sexual Orientation Not on file Last Filed Vital Signs Vital Sign Reading Time Taken Comments Blood Pressure 162/88 02/10/2025 11:41 AM TECHNICAL DATA ANALYST Pulse 97 02/10/2025 11:41 AM TECHNICAL DATA ANALYST Temperature 36.9 C (98.5 F) 02/10/2025 11:41 AM TECHNICAL DATA ANALYST Respiratory Rate 18 02/10/2025 11:41 AM TECHNICAL DATA ANALYST Oxygen Saturation 95% 02/10/2025 11:41 AM TECHNICAL DATA ANALYST Inhaled Oxygen Concentration - - Weight 67.4 kg (148 lb 9.6 oz) 02/10/2025 9:36 A M TECHNICAL DATA ANALYST Height 154 cm (5' 0.63) 12/30/2024 8:45 AM TECHNICAL DATA ANALYST Body Mass Index 28.42 12/30/2024 8:45 AM TECHNICAL DATA ANALYST Plan of Treatment Upcoming Encounters Date Type Department Care Team (Late st Contact Info) Description 02/16/2025 8:26 AM TECHNICAL DATA ANALYST Hospital Encounter [facility] [address] [place] [id number] Health Maintenance Due Date Last Done Comments Colon Cancer Screening-Colonoscopy 1950 Hepatitis B Screening 10/01/1969 Osteoporosis Screening-Bone Density Scan 08/01/2014 08/01/2012, 05/20/2012, 05/20/2012 DTaP/Tdap/Td Vaccine (2 - Td or Tdap) 12/20/2014 12/20/2004 Well Visit 65+ 10/01/2016 Breast Cancer Screening-Mammogram 08/18/2023 08/17/2022, 08/17/2022, 09/09/2019, Additional history exists Depression Screening 07/30/2024 07/31/2023 Fall Risk Assessment 08/06/2024 08/07/2023 Covid-19 Vaccine (7 - Pfizer risk season) 2025 12/18/2024, 12/06/2022, 01/06/2022, Additional history exists Zoster Vaccine Completed 10/15/2018, 07/11/2018 Pneumococcal vaccine 65+ Completed 02/05/2019, 04/26 Hepatitis C Screening Completed 03/08/2021 Influenza Vaccine Completed 12/08/2024, , 12/23/2021, Additional history exists Medical Devices Implanted Type Area Finisher Hand Device Identifier Shelf Expiration Date Model / Serial / Lot [employer] [id number] Xcela 8fr 1.6mm 1 Lumen Low Profile Power Injectable Fill Suture - [id number] Implanted:Qty: 1 on 02/11/2021 at [facility] [employer] 12/06/2025 [id number] / / [id number] Procedures Procedure Name Priority Date/Time Associated Diagnosis Comments EGFR STAT 02/10/2025 9:16 AM TECHNICAL DATA ANALYST 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) DIFFERENTIAL AUTO STAT 02/10/2025 9:1 6 AM TECHNICAL DATA ANALYST 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) CBC WITH AUTO DIFFERENTIAL STAT 02/10/2025 9:16 AM TECHNICAL DATA ANALYST 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) COMPREHENSIVE METABOLIC PANEL STAT 02/10/2025 9:16 AM TECHNICAL DATA ANALYST 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) EGFR STAT 02/03/2025 11:35 AM TECHNICAL DATA ANALYST 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) DIFFERENTIAL AUTO STAT 02/03/2025 11:35 AM TECHNICAL DATA ANALYST 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) COMPREHENSIVE METABOLIC PANEL STAT 02/03/2025 11:35 AM TECHNICAL DATA ANALYST 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) CBC WITH AUTO DIFFERENTIAL STAT 02/03/2025 11:35 AM TECHNICAL DATA ANALYST 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) IMMUNOTYPING Routine 01/27/2025 10:25 AM TECHNICAL DATA ANALYST 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) EGFR STAT 01/27/2025 10:25 AM TECHNICAL DATA ANALYST 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) DIFFERENTIAL AUTO STAT 01/27/2025 10:25 AM TECHNICAL DATA ANALYST 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) IGA Routine 01/27/2025 10:25 AM TECHNICAL DATA ANALYST 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) IGG Routine 01/27/2025 10:25 AM TECHNICAL DATA ANALYST 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) IGM Routine 01/27/2025 10:25 AM TECHNICAL DATA ANALYST 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) IMMUNOGLOBULIN FREE LIGHT CHAINS Routine 01/27/2025 10:25 AM TECHNICAL DATA ANALYST 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) LACTATE DEHYDROGENASE Routine 01/27/2025 10:25 AM TECHNICAL DATA ANALYST 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) PROTEIN ELECTROPHORESIS, WITH REFLEX, SERUM Routine 01/27/2025 10:25 AM TECHNICAL DATA ANALYST 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) CBC WITH AUTO DIFFERENTIAL STAT 01/27/2025 10:25 AM TECHNICAL DATA ANALYST 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) COMPREHENSIVE METABOLIC PANEL STAT 01/27/2025 10:25 AM TECHNICAL DATA ANALYST 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) DIFFERENTIAL AUTO STAT 01/19/2025 9:2 4 AM TECHNICAL DATA ANALYST 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) CBC WITH AUTO DIFFERENTIAL STAT 01/19/2025 9:24 AM TECHNICAL DATA ANALYST 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) CLINICAL PATHOLOGY REPORT Routine 01/13/2025 8:44 AM TECHNICAL DATA ANALYST EGFR STAT 01/13/2025 8:44 AM TECHNICAL DATA ANALYST 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) DIFFERENTIAL AUTO STAT 01/13/2025 8:4 4 AM TECHNICAL DATA ANALYST 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) CBC WITH AUTO DIFFERENTIAL STAT 01/13/2025 8:44 AM TECHNICAL DATA ANALYST 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) COMPREHENSIVE METABOLIC PANEL STAT 01/13/2025 8:44 AM TECHNICAL DATA ANALYST 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) IGA Routine 01/13/2025 8:44 AM TECHNICAL DATA ANALYST 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) IGG Routine 01/13/2025 8:44 AM TECHNICAL DATA ANALYST 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) IGM Routine 01/13/2025 8:44 AM TECHNICAL DATA ANALYST 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) IMMUNOGLOBULIN FREE LIGHT CHAINS Routine 01/13/2025 8:44 AM TECHNICAL DATA ANALYST 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) LACTATE DEHYDROGENASE Routine 01/13/2025 8:44 AM TECHNICAL DATA ANALYST 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) PROTEIN ELECTROPHORESIS, WITH REFLEX, SERUM Routine 01/13/2025 8:44 AM TECHNICAL DATA ANALYST 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) IMMUNOTYPING Routine 01/13/2025 8:44 AM TECHNICAL DATA ANALYST 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) XR HIP RIGHT W PELVIS 2 OR 3 VIEWS Schedule Routine, Read Routine (OP Routine) 01/07/2025 11:14 AM TECHNICAL DATA ANALYST 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) EGFR STAT 01/06/2025 8:34 AM TECHNICAL DATA ANALYST 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) DIFFERENTIAL AUTO STAT 01/06/2025 8:3 4 AM TECHNICAL DATA ANALYST 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) COMPREHENSIVE METABOLIC PANEL STAT 01/06/2025 8:34 AM TECHNICAL DATA ANALYST 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) CBC WITH AUTO DIFFERENTIAL STAT 01/06/2025 8:34 AM TECHNICAL DATA ANALYST 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) EGFR STAT 12/30/2024 8:26 AM TECHNICAL DATA ANALYST 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) DIFFERENTIAL AUTO STAT 12/30/2024 8:2 6 AM TECHNICAL DATA ANALYST 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) RBC ANTIGEN GENOTYPING Routine 12/30/2024 8:26 AM TECHNICAL DATA ANALYST 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) TYPE AND SCREEN Routine 12/30/2024 8:26 AM TECHNICAL DATA ANALYST 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) COMPREHENSIVE METABOLIC PANEL STAT 12/30/2024 8:26 AM TECHNICAL DATA ANALYST 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) CBC WITH AUTO DIFFERENTIAL STAT 12/30/2024 8:26 AM TECHNICAL DATA ANALYST 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) EGFR Routine 12/23/2024 1:07 PM CDT 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) 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) DIFFERENTIAL AUTO Routine 12/23/2024 1:0 7 PM CDT 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) 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) CBC WITH AUTO DIFFERENTIAL Routine 12/23/2024 1:07 PM CDT 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) 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) COMPREHENSIVE METABOLIC PANEL Routine 12/23/2024 1:07 PM CDT 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) 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) IGA Routine 12/23/2024 1:07 PM CDT 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) 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) IGG Routine 12/23/2024 1:07 PM CDT 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) 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) IGM Routine 12/23/2024 1:07 PM CDT 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) 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) IMMUNOGLOBULIN FREE LIGHT CHAINS Routine 12/23/2024 1:07 PM CDT 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) 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) LACTATE DEHYDROGENASE Routine 12/23/2024 1:07 PM CDT 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) 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) PROTEIN ELECTROPHORESIS, WITH REFLEX, SERUM Routine 12/23/2024 1:07 PM CDT 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) 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) CLINICAL PATHOLOGY REPORT Routine 12/16/2024 9:27 AM CDT EGFR Routine 12/16/2024 9:27 AM CDT 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) 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) DIFFERENTIAL AUTO Routine 12/16/2024 9:2 7 AM CDT 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) 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) CBC WITH AUTO DIFFERENTIAL Routine 12/16/2024 9:27 AM CDT 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) 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) COMPREHENSIVE METABOLIC PANEL Routine 12/16/2024 9:27 AM CDT 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) 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) IGA Routine 12/16/2024 9:27 AM CDT 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) 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) IGG Routine 12/16/2024 9:27 AM CDT 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) 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) IGM Routine 12/16/2024 9:27 AM CDT 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) 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) IMMUNOGLOBULIN FREE LIGHT CHAINS Routine 12/16/2024 9:27 AM CDT 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) 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) LACTATE DEHYDROGENASE Routine 12/16/2024 9:27 AM CDT 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) 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) PROTEIN ELECTROPHORESIS, WITH REFLEX, SERUM Routine 12/16/2024 9:27 AM CDT 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) 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) EGFR Routine 11/18/2024 2:20 PM CDT 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) 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) DIFFERENTIAL AUTO Routine 11/18/2024 2:2 0 PM CDT 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) 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) CBC WITH AUTO DIFFERENTIAL Routine 11/18/2024 2:20 PM CDT 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) 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) COMPREHENSIVE METABOLIC PANEL Routine 11/18/2024 2:20 PM CDT 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) 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) IGA Routine 11/18/2024 2:20 PM CDT 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) 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) IGG Routine 11/18/2024 2:20 PM CDT 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) 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) IGM Routine 11/18/2024 2:20 PM CDT 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) 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) IMMUNOGLOBULIN FREE LIGHT CHAINS Routine 11/18/2024 2:20 PM CDT 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) 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) LACTATE DEHYDROGENASE Routine 11/18/2024 2:20 PM CDT 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) 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 73 m2 Comment: [...] was last reviewed 2020. Testing performed by: [place] [address] Blood 02/10/2025 9:16 AM TECHNICAL DATA ANALYST 02/10/2025 9:28 AM TECHNICAL DATA ANALYST us Colleen Jaffe [employer] LAB BLOOD ORDERABLES Fin al Result STEPHANIE [id number] [address] Department [place] [address] * (ABNORMAL) Differential, auto (02/10/2025 9:16 AM TECHNICAL DATA ANALYST) Pathologist [facility] Neutrophil abs 6.79(H) 1.50 - 6.50 K/cumm Comment:Testing performed by : [facility] [place] [address] Imm gran abs 0.03 0.00 - 0.10 K/cumm STEPHANIE BAER Comment:Testing performed by : [facility] [place] [address] Lymphocyte abs 1.19 0.80 - 3.30 K/cumm STEPHANIE BAER Comment:Testing performed by : [facility] [place] [address] Monocyte abs 1.05(H) 0.20 - 0.80 K/cumm CERNER CH Comment:Testing performed by : [facility] [place] [address] Eosinophil abs 0.24 0.00 - 0.50 K/cumm CERNER CH Comment:Testing performed by : [facility] [place] [address] Basophil abs 0.01 0.00 - 0.10 K/cumm CERNER CH Comment:Testing performed by : [facility] [place] [address] Neutrophil pct 72.9 % CERNER CH Comment: Interpretive Data Percent cell count reference ranges are not reported, since discordance with absolute values may lead to misinterpretation of CBC data. Current Interpretive Data was last revised on 2017. Testing performed by: [facility] [place] [address] Imm gran pct 0.3 % CERNER CH Comment: Interpretive Data Percent cell count reference ranges are not reported, since discordance with absolute values may lead to misinterpretation of CBC data. Current Interpretive Data was last revised on 2017. Testing performed by: [facility] [place] [address] Lymphocyte pct 12.8 % CERNER CH Comment: Interpretive Data Percent cell count reference ranges are not reported, since discordance with absolute values may lead to misinterpretation of CBC data. Current Interpretive Data was last revised on 2017. Testing performed by: [facility] [place] [address] Monocyte pct 11.3 % CERNER CH Comment: Interpretive Data Percent cell count reference ranges are not reported, since discordance with absolute values may lead to misinterpretation of CBC data. Current Interpretive Data was last revised on 2017. Testing performed by: [facility] [place] [address] Eosinophil pct 2.6 % CERNER CH Comment: Interpretive Data Percent cell count reference ranges are not reported, since discordance with absolute values may lead to misinterpretation of CBC data. Current Interpretive Data was last revised on 2017. Testing performed by: [facility] [place] [address] Basophil pct 0.1 % CERUSAMA Comment: Interpretive Data Percent cell count reference ranges are not reported, since discordance with absolute values may lead to misinterpretation of CBC data. Current Interpretive Data was last revised on 2017. Testing performed by: [facility] [place] [address] Blood 02/10/2025 9:16 AM TECHNICAL DATA ANALYST 02/10/2025 9:28 AM TECHNICAL DATA ANALYST us Colleen Jaffe NP LAB BLOOD ORDERABLES Fin al Result STEPHANIE [address] [address] Department [place] [address] * (ABNORMAL) CBC with auto differential (02/10/2025 9:16 AM TECHNICAL DATA ANALYST) WBC 9.31 3.80 - 9.90 K/cumm Comment:Testing performed by : [facility] [place] [address] Hgb 10.9(L) 11.9 - 15.5 g/dL CERNER CH Comment:Testing performed by : [facility] [place] [address] Hct 32.8(L) 35.6 - 45.5 % CERNER CH Comment:Testing performed by : [facility] [place] [address] Plt 153 150 - 400 K/cumm CERUSAMA Comment:Testing performed by : [facility] [place] [address] MPV 10.2 9.1 - 12.3 fL CERNER CH Comment:Testing performed by : [facility] [place] [address] RBC 3.34(L) 3.90 - 5.20 M/cumm CERNER CH Comment:Testing performed by : [facility] [place] [address] MCV 98.2(H) 81.3 - 96.4 fL CERNER CH Comment:Testing performed by : [facility] [place] [address] MCH 32.6 27.1 - 33.3 pg STEPHANIE BAER Comment:Testing performed by : [facility] [place] [address] MCHC 33.2 32.3 - 35.7 g/dL STEPHANIE BAER Comment:Testing performed by : [facility] [place] [address] RDW CV 13.9 11.1 - 14.9 % STEPHANIE BAER Comment:Testing performed by : [facility] [place] [address] RDW SD 50.2(H) 35.7 - 48.1 fL STEPHANIE CH Comment:Testing performed by : [facility] [place] [address] NRBC abs 0.00 0.00 - 0.01 K/cumm STEPHANIE BAER Comment:Testing performed by : [facility] [place] [address] ANC Prelim 6.79(H) 1.50 - 6.50 K/cumm STEPHANIE BAER Comment: Interpretive Data The rapid ANC is a preliminary automated count and may vary from the final ANC (Neut Abs) reported in the WBC differential that follows. Current interpretive data was last revised 2024. Testing performed by: [facility] [place] [address] Blood 02/10/2025 9:16 AM TECHNICAL DATA ANALYST 02/10/2025 9:28 AM TECHNICAL DATA ANALYST us Colleen Jaffe [employer] LAB BLOOD ORDERABLES Fin al Result STEPHANIE BAER [address] [address] Department [place] [address] * (ABNORMAL) Comprehensive metabolic panel (02/10/2025 9:16 AM TECHNICAL DATA ANALYST) Sodium 135 135 - 145 mmol/L Comment:Testing performed by : [facility] [place] [address] Potassium, pl 3.8 3.3 - 4.9 mmol/L STEPHANIE BAER Comment:Testing performed by : [facility] [place] [address] Chloride 99 97 - 110 mmol/L CERNER CH Comment:Testing performed by : [facility] [place] [address] CO2 24 22 - 32 mmol/L CERNER CH Comment:Testing performed by : [facility] [place] [address] Anion gap 12 2 - 15 mmol/L CERNER CH Comment:Testing performed by : [facility] [place] [address] BUN 10 6 - 25 mg/dL CERNER CH Comment:Testing performed by : [facility] [place] [address] Creatinine 0.59(L) 0.60 - 1.10 mg/dL CERNER CH Comment:Testing performed by : [facility] [place] [address] Glucose 152 70 - 199 mg/dL CERNER [...] was last revised 2022. Testing performed by: [facility] [place] [address] Calcium 8.9 8.5 - 10.3 mg/dL CERNER CH Comment:Testing performed by : [facility] [place] [address] Bilirubin, total 0.4 0.1 - 1.2 mg/dL CERNER CH Comment:Testing performed by : [facility] [place] [address] Protein, pl 5.9(L) 6.5 - 8.5 g/dL CERNER CH Comment:Testing performed by : [facility] [place] [address] Albumin 4.0 3.5 - 5.0 g/dL CERNER CH Comment:Testing performed by : [facility] [place] [address] Alk phos 92 40 - 130 Units/L STEPHANIE BAER Comment:Testing performed by : [facility], [place] [address] ALT 20 7 - 45 Units/L STEPHANIE BAER Comment:Testing performed by : [facility] [place] [address] AST 23 10 - 45 Units/L STEPHANIE BAER Comment:Testing performed by : [facility] [place] [address] Blood 02/10/2025 9:16 AM TECHNICAL DATA ANALYST 02/10/2025 9:28 AM TECHNICAL DATA ANALYST us Colleen Jaffe [employer] LAB BLOOD ORDERABLES Fin al Result STEPHANIE BAER [address] [address] Department [place] [address] * eGFR (02/03/2025 11:35 AM TECHNICAL DATA ANALYST) eGFR >90 >=60 mL/min/1. 73 m2 Comment: [...] was last reviewed 2020. Testing performed by: [facility] [place] [address] Blood 02/03/2025 11:3 5 AM TECHNICAL DATA ANALYST 02/03/2025 11:39 AM TECHNICAL DATA ANALYST us Colleen Sarahyaquelin Jaffe [employer] LAB BLOOD ORDERABLES Fin al Result [facility] [address] [address] Department of Laboratories [place] [id number] * (ABNORMAL) Differential, auto (02/03/2025 11:35 AM TECHNICAL DATA ANALYST) Neutrophil abs 3.62 1.50 - 6.50 K/cumm Comment:Testing performed by : [facility] [place] [address] Imm gran abs 0.03 0.00 - 0.10 K/cumm CERNER CH Comment:Testing performed by : [facility] [place] [address] Lymphocyte abs 0.94 0.80 - 3.30 K/cumm CERNER CH Comment:Testing performed by : [facility] [place] [address] Monocyte abs 1.53(H) 0.20 - 0.80 K/cumm CERNER CH Comment:Testing performed by : [facility] [place] [address] Eosinophil abs 0.14 0.00 - 0.50 K/cumm CERNER CH Comment:Testing performed by : [facility] [place] [address] Basophil abs 0.01 0.00 - 0.10 K/cumm CERNER CH Comment:Testing performed by : [facility] [place] [address] Neutrophil pct 57.7 % CERNER Comment: Interpretive Data Percent cell count reference ranges are not reported, since discordance with absolute values may lead to misinterpretation of CBC data. Current Interpretive Data was last revised on 2017. Testing performed by: [facility] [place] [address] Imm gran pct 0.5 % CERNER Comment: Interpretive Data Percent cell count reference ranges are not reported, since discordance with absolute values may lead to misinterpretation of CBC data. Current Interpretive Data was last revised on 2017. Testing performed by: [facility] [place] [address] Lymphocyte pct 15.0 % CERNER Comment: Interpretive Data Percent cell count reference ranges are not reported, since discordance with absolute values may lead to misinterpretation of CBC data. Current Interpretive Data was last revised on 2017. Testing performed by: [facility] [place] [address] Monocyte pct 24.4 % STEPHANIE Comment: Interpretive Data Percent cell count reference ranges are not reported, since discordance with absolute values may lead to misinterpretation of CBC data. Current Interpretive Data was last revised on 2017. Testing performed by: [facility] [place] [address] Eosinophil pct 2.2 % STEPHANIE BAER Comment: Interpretive Data Percent cell count reference ranges are not reported, since discordance with absolute values may lead to misinterpretation of CBC data. Current Interpretive Data was last revised on 2017. Testing performed by: [facility] [place] [address] Basophil pct 0.2 % STEPHANIE Comment: Interpretive Data Percent cell count reference ranges are not reported, since discordance with absolute values may lead to misinterpretation of CBC data. Current Interpretive Data was last revised on 2017. Testing performed by: [place] [address] Blood 02/03/2025 11:3 5 AM TECHNICAL DATA ANALYST 02/03/2025 11:39 AM TECHNICAL DATA ANALYST us Colleen Jaffe [employer] LAB BLOOD ORDERABLES Fin al Result STEPHANIE [address] [address] Department [place] [address] * (ABNORMAL) CBC with auto differential (02/03/2025 11:35 AM TECHNICAL DATA ANALYST) WBC 6.27 3.80 - 9.90 K/cumm Comment:Testing performed by : [facility] [place] [address] Hgb 10.5(L) 11.9 - 15.5 g/dL STEPHANIE BAER Comment:Testing performed by : [facility] [place] [address] Hct 31.9(L) 35.6 - 45.5 % CERNER CH Comment:Testing performed by : [facility] [place] [address] Plt 110(L) 150 - 400 K/cumm CERNER CH Comment:Testing performed by : [facility] [place] [address] MPV 10.6 9.1 - 12.3 fL CERNER CH Comment:Testing performed by : [facility] [place] [address] RBC 3.23(L) 3.90 - 5.20 M/cumm CERNER CH Comment:Testing performed by : [facility] [place] [address] MCV 98.8(H) 81.3 - 96.4 fL CERNER CH Comment:Testing performed by : [facility] [place] [address] MCH 32.5 27.1 - 33.3 pg CERNER CH Comment:Testing performed by : [facility] [place] [address] MCHC 32.9 32.3 - 35.7 g/dL CERNER CH Comment:Testing performed by : [facility] [place] [address] RDW CV 14.0 11.1 - 14.9 % CERNER CH Comment:Testing performed by : [facility] [place] [address] RDW SD 50.7(H) 35.7 - 48.1 fL CERNER CH Comment:Testing performed by : [facility] [place] [address] NRBC abs 0.00 0.00 - 0.01 K/cumm CERNER CH Comment:Testing performed by : [facility] [place] [address] ANC Prelim 3.62 1.50 - 6.50 K/cumm CERNER CH Comment: Interpretive Data The rapid ANC is a preliminary automated count and may vary from the final ANC (Neut Abs) reported in the WBC differential that follows. Current interpretive data was last revised 2024. Testing performed by: [facility] [place] [address] Blood 02/03/2025 11:3 5 AM TECHNICAL DATA ANALYST 02/03/2025 11:39 AM TECHNICAL DATA ANALYST us Colleen Jaffe NP LAB BLOOD ORDERABLES Fin al Result [facility] [address] [address] Department of Laboratories [place], [place] [id number] * (ABNORMAL) Comprehensive metabolic panel (02/03/2025 11:35 AM TECHNICAL DATA ANALYST) Sodium 135 135 - 145 mmol/L Comment:Testing performed by : [facility] [place] [address] Potassium, pl 4.3 3.3 - 4.9 mmol/L CERNER Comment:Testing performed by : [facility] [place] [address] Chloride 100 97 - 110 mmol/L CERNER Comment:Testing performed by : [facility] [place] [address] CO2 25 22 - 32 mmol/L CERNER Comment:Testing performed by : [facility] [place] [address] Anion gap 10 2 - 15 mmol/L [facility] Comment:Testing performed by : [facility] [place] [address] BUN 15 6 - 25 mg/dL CERNER Comment:Testing performed by : [facility] [place] [address] Creatinine 0.62 0.60 - 1.10 mg/dL CERNER Comment:Testing performed by : [facility] [place] [address] Glucose 97 70 - 199 mg/dL [facility] Comment: Interpretive Data Fasting glucose >/= 126 [...] classification and Diagnosis of Diabetes Diabetes Care 2021; 46: S19-S40. Current interpretive data was last revised 2022. Testing performed by: [facility] [place] [address] Calcium 9.1 8.5 - 10.3 mg/dL CERNER CH Comment:Testing performed by : [facility] [place] [address] Bilirubin, total 0.4 0.1 - 1.2 mg/dL CERNER CH Comment:Testing performed by : [facility] [place] [address] Protein, pl 5.5(L) 6.5 - 8.5 g/dL CERNER CH Comment:Testing performed by : [facility] [place] [address] Albumin 3.8 3.5 - 5.0 g/dL CERNER CH Comment:Testing performed by : [facility] [place] [address] Alk phos 86 40 - 130 Units/L CERNER CH Comment:Testing performed by : [facility] [place] [address] ALT 19 7 - 45 Units/L CERNER CH Comment:Testing performed by : [facility] [place] [address] AST 19 10 - 45 Units/L CERNER CH Comment:Testing performed by : [facility] [place] [address] Blood 02/03/2025 11:3 5 AM TECHNICAL DATA ANALYST 02/03/2025 11:39 AM TECHNICAL DATA ANALYST us Colleen Jaffe [employer]ER LAB BLOOD ORDERABLES Fin al Result [facility] [address] [address] Department [place] [address] * Immunotyping, serum with interpretation (01/27/2025 10:25 AM TECHNICAL DATA ANALYST) Immunosubtraction Please see comment Comment: IGG KAPPA PARAPROTEIN Reviewed and signed by Douglas Marie MD, PhD 01/29/2025 Blood 01/27/2025 10:2 5 AM TECHNICAL DATA ANALYST 01/27/2025 11:42 AM TECHNICAL DATA ANALYST Narrative CERNER [facility] - 01/30/2025 7:33 AM TECHNICAL DATA ANALYST Reflex Immunotyping, Ser Xander Gutiérrez MD LAB BLOOD ORDERABLES Final Resul t Performing Organization Address [facility] Co de Phone Number STEPHANIE RICK Blas [facility] Department [place] [address] * eGFR (01/27/2025 10:25 AM TECHNICAL DATA ANALYST) eGFR >90 >=60 mL/min/1. 73 m2 Comment: [...] Current interpretive data was last reviewed 2020. Blood 01/27/2025 10:2 5 AM TECHNICAL DATA ANALYST 01/27/2025 10:47 AM TECHNICAL DATA ANALYST us Xander Gutiérrez MD LAB BLOOD ORDERABLES Final Resul t Performing Organization Address City/[facility]/ZIP Co de Phone Number STEPHANIE RICK Bl[facility] Department [place] [address] * (ABNORMAL) Differential, auto (01/27/2025 10:25 AM TECHNICAL DATA ANALYST) Neutrophil abs 3.91 1.50 - 6.50 K/cumm Comment:Testing performed by : [facility], [address] [place] [phone] Lymphocyte abs 0.73(L) 0.80 - 3.30 K/cumm CERNER [facility] Comment:Testing performed by : [facility], [address] [place] [phone] Monocyte abs 0.70 0.20 - 0.80 K/cumm CERNER [facility] Comment:Testing performed by : [facility], [address] [place] [address] Eosinophil abs 0.05 0.00 - 0.50 K/cumm CERNER [facility] Comment:Testing performed by : [facility], [address] [place] [address] Basophil abs 0.01 0.00 - 0.10 K/cumm CERNER [facility] Comment:Testing performed by : [facility], [address] [place] [address] Neutrophil pct 72.5 % CERNER [facility] Comment: Interpretive Data Percent cell count reference ranges are not reported, since discordance with absolute values may lead to misinterpretation of CBC data. Current Interpretive Data was last revised on 2017. Testing performed by: [facility], [address] [place] [phone] Lymphocyte pct 13.5 % CERNER [facility] Comment: Interpretive Data Percent cell count reference ranges are not reported, since discordance with absolute values may lead to misinterpretation of CBC data. Current Interpretive Data was last revised on 2017. Testing performed by: [facility], [address] [place] [phone] Monocyte pct 13.0 % CERNER [facility] Comment: Interpretive Data Percent cell count reference ranges are not reported, since discordance with absolute values may lead to misinterpretation of CBC data. Current Interpretive Data was last revised on 2017. Testing performed by: [facility], [address] [place] [phone] Eosinophil pct 0.9 % CERNER [facility] Comment: Interpretive Data Percent cell count reference ranges are not reported, since discordance with absolute values may lead to misinterpretation of CBC data. Current Interpretive Data was last revised on 2017. Testing performed by: [facility], [address] [place] [address] Basophil pct 0.1 % STEPHANIE RICK Comment: Interpretive Data Percent cell count reference ranges are not reported, since discordance with absolute values may lead to misinterpretation of CBC data. Current Interpretive Data was last revised on 2017. Testing performed by: [facility], [address] [place] [address] Blood 01/27/2025 10:2 5 AM TECHNICAL DATA ANALYST 01/27/2025 10:42 AM TECHNICAL DATA ANALYST us Xander Gutiérrez MD LAB BLOOD ORDERABLES Final Resul t STEPHANIE RICK [facility] Department [place] [address] * (ABNORMAL) Immunoglobulin free light chains (01/27/2025 10:25 AM TECHNICAL DATA ANALYST) [place]/Lambda ratio BJ 1.69(H) 0.26 - 1.65 Comment: Interpretive Data The Binding Site FreeLite assay procedure was used. Results from different manufacturers or methods may not be comparable. Serial testing should be performed using the same methods and instrumentation. Current Interpretive Data was last revised on 2023. [place] free light chain BJ 0.44 0.33 - 1.94 mg/dL STEPHANIE RICK Comment: Interpretive Data The Binding Site FreeLite assay procedure was used. Results from different manufacturers or methods may not be comparable. Serial testing should be performed using the same methods and instrumentation. Current Interpretive Data was last revised on 2023. Lambda free light chain BJ 0.26(L) 0.57 - 2.63 mg/dL STEPHANIE RICK Comment: Interpretive Data The Binding Site FreeLite assay procedure was used. Results from different manufacturers or methods may not be comparable. Serial testing should be performed using the same methods and instrumentation. Current Interpretive Data was last revised on 2023. Blood 01/27/2025 10:2 5 AM TECHNICAL DATA ANALYST 01/27/2025 11:30 AM TECHNICAL DATA ANALYST us Xander Gutiérrez MD LAB BLOOD ORDERABLES Final Resul t STEPHANIE RICK [facility] Department [place] [address] * (ABNORMAL) CBC with auto differential (01/27/2025 10:25 AM TECHNICAL DATA ANALYST) WBC 5.40 3.80 - 9.90 K/cumm Comment:Testing performed by : [facility], [address] [place] [address] Hgb 10.5(L) 11.9 - 15.5 g/dL STEPHANIE RICK Comment:Testing performed by : [facility], [address] [place] [address] Hct 30.9(L) 35.6 - 45.5 % STEPHANIE RICK Comment:Testing performed by : [facility], [address] [place] [address] Plt 183 150 - 400 K/cumm STEPHANIE RICK Comment:Testing performed by : [facility], [address] [place] [address] MPV 8.0 6.8 - 10.4 fL STEPHANIE RICK Comment:Testing performed by : [facility], [address] [place] [address] RBC 3.25(L) 3.90 - 5.20 M/cumm STEPHANIE RICK Comment:Testing performed by : [facility], [address] [place] [address] MCV 95.1 81.3 - 96.4 fL STEPHANIE RICK Comment:Testing performed by : [facility], [address] [place] [address] MCH 32.3 27.1 - 33.3 pg CERUSAMA RICK Comment:Testing performed by : [facility], [address] [place] [address] MCHC 33.9 32.3 - 35.7 g/dL [facility] Comment:Testing performed by : [facility], [address] [place] [phone] RDW CV 14.7 11.1 - 14.9 % [facility] Comment:Testing performed by : [facility], [address] [place] [phone] NRBC abs 0.00 0.00 - 0.01 K/cumm STEPHANIE [facility] Comment:Testing performed by : [facility], [address] [place] [phone] Blood 01/27/2025 10:2 5 AM TECHNICAL DATA ANALYST 01/27/2025 10:42 AM TECHNICAL DATA ANALYST us Xander Gutiérrez MD LAB BLOOD ORDERABLES Final Resul t [facility] Department [place] [address] * (ABNORMAL) Protein electrophoresis with reflex, serum with interpretation (01/27/2025 10:25 AM TECHNICAL DATA ANALYST) Protein, sr 5.6(L) 6.2 - 8.2 g/dL Albumin 3.6 3.2 - 5.0 g/dL [facility] Alpha-1 globulin 0.3 0.2 - 0.4 g/dL [facility] Alpha-2 globulin 0.7 0.5 - 1.0 g/dL [facility] Beta-1 globulin 0.4 0.3 - 0.6 g/dL [facility] Beta-2 globulin 0.3 0.2 - 0.6 g/dL [facility] Gamma globulin 0.3(L) 0.5 - 1.7 g/dL [facility] Rstr Pk Gamma 0.1(H) 0.0 - 0.0 g/dL [facility] SPEP interp Please see comment [facility] Comment: Abnormal restricted peak in Gamma region Decreased gamma globulins Electrophoretic pattern appears different from previous sample 12/24/2024 See immunotyping for further information Reviewed and signed by Douglas Marie MD, PhD 01/29/2025 Immunotyping See Immunotyping Results [facility] Blood 01/27/2025 10:2 5 AM TECHNICAL DATA ANALYST 01/27/2025 11:30 AM TECHNICAL DATA ANALYST Result Trice Gutiérrez MD LAB BLOOD ORDERABLES Final Resul t Performing Organization Address [facility] de Phone Number [facility] [place] [place] [address] * Lactate dehydrogenase (LD) (01/27/2025 10:25 AM TECHNICAL DATA ANALYST) Lactate dehydrogenase (LDH) 187 100 - 250 Units/L Blood 01/27/2025 10:2 5 AM TECHNICAL DATA ANALYST 01/27/2025 10:47 AM TECHNICAL DATA ANALYST Result Trice Gutiérrez MD LAB BLOOD ORDERABLES Final Resul t Performing Organization Address [facility] de Phone Number [facility] [place] [place] [address] * (ABNORMAL) IgA (01/27/2025 10:25 AM TECHNICAL DATA ANALYST) Immunoglobulin A 9(L) 70 - 400 mg/dL Blood 01/27/2025 10:2 5 AM TECHNICAL DATA ANALYST 01/27/2025 11:26 AM TECHNICAL DATA ANALYST Result Trice Gutiérrez MD LAB BLOOD ORDERABLES Final Resul t Performing Organization Address [facility] de Phone Number [facility] [place] [address] * (ABNORMAL) IgM (01/27/2025 10:25 AM TECHNICAL DATA ANALYST) Immunoglobulin M <25(L) 40 - 230 mg/dL Blood 01/27/2025 10:2 5 AM TECHNICAL DATA ANALYST 01/27/2025 11:26 AM TECHNICAL DATA ANALYST us Xander Gutiérrez MD LAB BLOOD ORDERABLES Final Resul t Performing Organization Address [facility] Co de Phone Number [facility] Blas [facility] [place] [address] * (ABNORMAL) IgG (01/27/2025 10:25 AM TECHNICAL DATA ANALYST) Immunoglobulin G 316(L) 700 - 1,600 mg/dL Blood 01/27/2025 10:2 5 AM TECHNICAL DATA ANALYST 01/27/2025 11:26 AM TECHNICAL DATA ANALYST Xander Gutiérrez MD LAB BLOOD ORDERABLES Final Resul t Performing Organization Address [facility] de Phone Number [facility] Department [place] [address] * (ABNORMAL) Comprehensive metabolic panel (01/27/2025 10:25 AM TECHNICAL DATA ANALYST) [facility] Sodium 137 135 - 145 mmol/L Potassium, pl 3.7 3.3 - 4.9 mmol/L [facility] Chloride 102 97 - 110 mmol/L [facility] CO2 27 22 - 32 mmol/L [facility] Anion gap 8 2 - 15 mmol/L [facility] BUN 17 6 - 25 mg/dL [facility] Creatinine 0.66 0.60 - 1.10 mg/dL [facility] Glucose 141 70 - 199 mg/dL [facility] Comment: Interpretive Data Fasting glucose >/= 126 [...] classification and Diagnosis of Diabetes Diabetes Care 2021; 46: S19-S40. Current interpretive data was last revised 2022. Calcium 8.6 8.5 - 10.3 mg/dL [facility] Bilirubin, total 0.3 0.1 - 1.2 mg/dL [facility] Protein, pl 5.8(L) 6.5 - 8.5 g/dL [facility] Albumin 4.0 3.5 - 5.0 g/dL [facility] Alk phos 75 40 - 130 Units/L CERNER [facility] ALT 20 7 - 45 Units/L [facility] AST 19 10 - 45 Units/L [facility] Blood 01/27/2025 10:2 5 AM TECHNICAL DATA ANALYST 01/27/2025 10:47 AM TECHNICAL DATA ANALYST us Xander Gutiérrez MD LAB BLOOD ORDERABLES Final Resul t [facility] Department [place] [address] * Differential, auto (01/19/2025 9:24 AM TECHNICAL DATA ANALYST) Neutrophil abs 5.14 1.50 - 6.50 K/cumm Comment:Testing performed by : [facility] [place] [address] Imm gran abs 0.02 0.00 - 0.10 K/cumm CERNER CH Comment:Testing performed by : [facility] [place] [address] Lymphocyte abs 0.80 0.80 - 3.30 K/cumm CERNER CH Comment:Testing performed by : [facility] [place] [address] Monocyte abs 0.79 0.20 - 0.80 K/cumm CERNER CH Comment:Testing performed by : [facility] [place] [address] Eosinophil abs 0.04 0.00 - 0.50 K/cumm CERNER CH Comment:Testing performed by : [facility] [place] [address] Basophil abs 0.00 0.00 - 0.10 K/cumm CERNER CH Comment:Testing performed by : [facility] [place] [address] Neutrophil pct 75.7 % CERNER CH Comment: Interpretive Data Percent cell count reference ranges are not reported, since discordance with absolute values may lead to misinterpretation of CBC data. Current Interpretive Data was last revised on 2017. Testing performed by: [facility] [place] [address] Imm gran pct 0.3 % CERNER Comment: Interpretive Data Percent cell count reference ranges are not reported, since discordance with absolute values may lead to misinterpretation of CBC data. Current Interpretive Data was last revised on 2017. Testing performed by: [facility] [place] [address] Lymphocyte pct 11.8 % CERNER Comment: Interpretive Data Percent cell count reference ranges are not reported, since discordance with absolute values may lead to misinterpretation of CBC data. Current Interpretive Data was last revised on 2017. Testing performed by: [facility] [place] [address] Monocyte pct 11.6 % CERNER Comment: Interpretive Data Percent cell count reference ranges are not reported, since discordance with absolute values may lead to misinterpretation of CBC data. Current Interpretive Data was last revised on 2017. Testing performed by: [facility] [place] [address] Eosinophil pct 0.6 % CERNER Comment: Interpretive Data Percent cell count reference ranges are not reported, since discordance with absolute values may lead to misinterpretation of CBC data. Current Interpretive Data was last revised on 2017. Testing performed by: [facility] [place] [address] Basophil pct 0.0 % CERNER Comment: Interpretive Data Percent cell count reference ranges are not reported, since discordance with absolute values may lead to misinterpretation of CBC data. Current Interpretive Data was last revised on 2017. Testing performed by: [facility] [place] [address] Blood 01/19/2025 9:24 AM TECHNICAL DATA ANALYST 01/19/2025 9:38 AM TECHNICAL DATA ANALYST us Xander Gutiérrez MD LAB BLOOD ORDERABLES Final Resul t STEPHANIE BAER [address] [address] Department [place] [address] * (ABNORMAL) CBC with auto differential (01/19/2025 9:24 AM TECHNICAL DATA ANALYST) WBC 6.79 3.80 - 9.90 K/cumm Comment:Testing performed by : [facility] [place] [address] Hgb 11.2(L) 11.9 - 15.5 g/dL CERNER CH Comment:Testing performed by : [facility] [place] [address] Hct 33.7(L) 35.6 - 45.5 % CERNER CH Comment:Testing performed by : [facility] [place] [address] Plt 129(L) 150 - 400 K/cumm CERNER CH Comment:Testing performed by : [facility] [place] [address] MPV 10.7 9.1 - 12.3 fL CERNER CH Comment:Testing performed by : [facility] [place] [address] RBC 3.46(L) 3.90 - 5.20 M/cumm CERNER CH Comment:Testing performed by : [facility] [place] [address] MCV 97.4(H) 81.3 - 96.4 fL CERNER CH Comment:Testing performed by : [facility] [place] [address] MCH 32.4 27.1 - 33.3 pg CERNER CH Comment:Testing performed by : [facility] [place] [address] MCHC 33.2 32.3 - 35.7 g/dL CERNER CH Comment:Testing performed by : [facility] [place] [address] RDW CV 14.1 11.1 - 14.9 % CERNER CH Comment:Testing performed by : [facility] [place] [address] RDW SD 49.1(H) 35.7 - 48.1 fL CERNER CH Comment:Testing performed by : [facility] [place] [address] NRBC abs 0.00 0.00 - 0.01 K/cumm CERNER CH Comment:Testing performed by : [facility], [place] [address] ANC Prelim 5.14 1.50 - 6.50 K/cumm STEPHANIE BAER Comment: Interpretive Data The rapid ANC is a preliminary automated count and may vary from the final ANC (Neut Abs) reported in the WBC differential that follows. Current interpretive data was last revised 2024. Testing performed by: [facility], [place] [address] Blood 01/19/2025 9:24 AM TECHNICAL DATA ANALYST 01/19/2025 9:38 AM TECHNICAL DATA ANALYST Xander Gutiérrez MD LAB BLOOD ORDERABLES Final Resul t Performing Organization Address [facility] Co de Phone Number [place] [phone] [facility] [place] [address] * Immunotyping, serum with interpretation (01/13/2025 8:44 AM TECHNICAL DATA ANALYST) Immunofixation See Cl Path Rpt Blood 01/13/2025 8:44 AM TECHNICAL DATA ANALYST 01/13/2025 9:38 AM TECHNICAL DATA ANALYST Xander Gutiérrez MD LAB BLOOD ORDERABLES Final Resul t Performing Organization Address [facility] Co de Phone Number [place] [phone] [facility] Department [place] [employer] [place] [address] * Clinical pathology report (01/13/2025 8:44 AM TECHNICAL DATA ANALYST) Miscellaneous 01/13/2025 8:4 4 AM TECHNICAL DATA ANALYST 01/15/2025 7:58 AM TECHNICAL DATA ANALYST Narrative 01/16/2025 1:35 PM TECHNICAL DATA ANALYST EPIC results best viewed via link to PDF [facility] Department of Pathology [address] [place] [id number] Final Report Note to Patients: This report may contain a detailed description of human tissue sent by a health care provider to the laboratory for pathologic evaluation. The content of this report is essential for diagnosis and may provide important critical findings. This information may be unfamiliar to patients to review without a medical professional present. It is advised that the patient review this report in the presence of a health care provider who can answer questions and explain the details. Patient Name: ESTRADA HANLEY Address: [address] [place] [address] [place] [address] Gender: F : 1950 (Age: 74) Service: Location: Hospital #: [id number] Patient Type: CH EP REF LAB SERIES Taken: 01/13/2025 Received: 01/15/2025 Accessioned: 01/15/2025 Physician(s): Xander Gutiérrez M.D. Specimen(s) Received A: Blood (serum) Serum Protein Electrophoresis with Immunofixation/ImmunotypingReported:01/16/2025 Interpretation: Serum Protein Electrophoresis: 0.1 g/dl paraprotein. Serum Protein Immunofixation: IgG kappa. Comment: Serum Protein Electrophoresis: A 0.1 g/dl paraprotein is identified. Serum Protein Immunofixation: Examination of G, A and M heavy chains as well as kappa and lambda light chains reveals an IgG kappa band. See Epic and/or separate report for protein fraction table. Tino Wu MD PhDReport Electronically Reviewed and Signed Out By Tino Wu MD PhD 01/16/2025 13:34:24 The performance characteristics of some immunohistochemical stains, fluorescence in-situ hybridization tests and immunophenotyping by flow cytometry cited in this report (if any) were determined by the Surgical Pathology Department at [facility] as part of an ongoing senior software quality analyst program and in compliance with federally mandated regulations drawn from the Clinical Laboratory Improvement Act of 1988 (CLIA '88). Some of these tests rely on the use of analyte specific reagents and are subject to specific labeling requirements by the US Food and Drug Administration. Such diagnostic tests may only be performed in a facility that is certified by the Department of Health and Human Services as a high complexity laboratory under CLIA '88. The FDA has determined that such clearance or approval is not necessary. This test is used for clinical purposes. It should not be regarded as investigational or for research. Nevertheless, federal rules concerning the medical use of analyte specific reagents require that the following disclaimer be attached to the report: This test was developed and its performance characteristics determined by the Surgical Pathology Department [facility]. It has not been cleared or approved by the U. S. Food and Drug Administration. REPORT IMAGES AND SCANNED DOCUMENTS, IF INCLUDED, ONLY VIEWABLE IN PDF VERSION OF REPORTe o us Xander Gutiérrez MD LAB PATHOLOGY ORDERABLES Final R esult * eGFR (01/13/2025 8:44 AM TECHNICAL DATA ANALYST) eGFR 90 >=60 mL/min/1. 73 m2 Comment: Interpretive Data [...] was last reviewed 2020. Testing performed by: [facility] [place] [address] Blood 01/13/2025 8:44 AM TECHNICAL DATA ANALYST 01/13/2025 8:46 AM TECHNICAL DATA ANALYST us Xander Gutiérrez MD LAB BLOOD ORDERABLES Final Resul t STEPHANIE [address] [address] Department [place] [address] * (ABNORMAL) Differential, auto (01/13/2025 8:44 AM TECHNICAL DATA ANALYST) Neutrophil abs 3.78 1.50 - 6.50 K/cumm Comment:Testing performed by : [facility] [place] [address] Imm gran abs 0.02 0.00 - 0.10 K/cumm CERNER CH Comment:Testing performed by : [facility] [place] [address] Lymphocyte abs 1.03 0.80 - 3.30 K/cumm CERNER CH Comment:Testing performed by : [facility] [place] [address] Monocyte abs 1.14(H) 0.20 - 0.80 K/cumm CERNER CH Comment:Testing performed by : [facility] [place] [address] Eosinophil abs 0.03 0.00 - 0.50 K/cumm CERNER CH Comment:Testing performed by : [facility] [place] [address] Basophil abs 0.01 0.00 - 0.10 K/cumm CERNER CH Comment:Testing performed by : [facility] [place] [address] Neutrophil pct 62.9 % CERNER CH Comment: Interpretive Data Percent cell count reference ranges are not reported, since discordance with absolute values may lead to misinterpretation of CBC data. Current Interpretive Data was last revised on 2017. Testing performed by: [facility] [place] [address] Imm gran pct 0.3 % CERNER CH Comment: Interpretive Data Percent cell count reference ranges are not reported, since discordance with absolute values may lead to misinterpretation of CBC data. Current Interpretive Data was last revised on 2017. Testing performed by: [facility] [place] [address] Lymphocyte pct 17.1 % CERNER CH Comment: Interpretive Data Percent cell count reference ranges are not reported, since discordance with absolute values may lead to misinterpretation of CBC data. Current Interpretive Data was last revised on 2017. Testing performed by: [facility] [place] [address] Monocyte pct 19.0 % CERNER CH Comment: Interpretive Data Percent cell count reference ranges are not reported, since discordance with absolute values may lead to misinterpretation of CBC data. Current Interpretive Data was last revised on 2017. Testing performed by: [facility], [place] [address] Eosinophil pct 0.5 % STEPHANIE Comment: Interpretive Data Percent cell count reference ranges are not reported, since discordance with absolute values may lead to misinterpretation of CBC data. Current Interpretive Data was last revised on 2017. Testing performed by: [facility], [place] [address] Basophil pct 0.2 % STEPHANIE Comment: Interpretive Data Percent cell count reference ranges are not reported, since discordance with absolute values may lead to misinterpretation of CBC data. Current Interpretive Data was last revised on 2017. Testing performed by: [facility] [place] [address] Blood 01/13/2025 8:44 AM TECHNICAL DATA ANALYST 01/13/2025 8:46 AM TECHNICAL DATA ANALYST Xander Gutiérrez MD LAB BLOOD ORDERABLES Final Resul t Performing Organization Address [facility] de Phone Number [facility] [address] [address] Department [place] [address] * (ABNORMAL) Immunoglobulin free light chains (01/13/2025 8:44 AM TECHNICAL DATA ANALYST) [place]/Lambda ratio 3.70(H) 0.26 - 1.65 [place] free light chain 0.63 0.33 - 1.94 mg/dL STEPHANIE Comment: Interpretive Data The Rissa Ig [place] FLC assay procedure was used. Results from different manufacturers or methods may not be comparable. Serial testing should be performed using the same method. Lambda free light chain 0.17(L) 0.57 - 2.63 mg/dL [facility] Comment: Interpretive Data The Rissa Ig Lambda FLC assay procedure was used. Results from different manufacturers or methods may not be comparable. Serial testing should be performed using the same method. Blood 01/13/2025 8:44 AM TECHNICAL DATA ANALYST 01/13/2025 9:38 AM TECHNICAL DATA ANALYST Xander Gutiérrez MD LAB BLOOD ORDERABLES Final Resul t Performing Organization Address [facility] de Phone Number STEPHANIE [address] [address] Department [place] [address] * (ABNORMAL) CBC with auto differential (01/13/2025 8:44 AM TECHNICAL DATA ANALYST) WBC 6.01 3.80 - 9.90 K/cumm Comment:Testing performed by : [facility] [place] [address] Hgb 10.9(L) 11.9 - 15.5 g/dL CERNER CH Comment:Testing performed by : [facility] [place] [address] Hct 33.0(L) 35.6 - 45.5 % CERNER CH Comment:Testing performed by : [facility] [place] [address] Plt 126(L) 150 - 400 K/cumm CERNER CH Comment:Testing performed by : [facility] [place] [address] MPV 10.4 9.1 - 12.3 fL CERNER CH Comment:Testing performed by : [facility] [place] [address] RBC 3.37(L) 3.90 - 5.20 M/cumm CERNER CH Comment:Testing performed by : [facility] [place] [address] MCV 97.9(H) 81.3 - 96.4 fL CERNER CH Comment:Testing performed by : [facility] [place] [address] MCH 32.3 27.1 - 33.3 pg CERNER CH Comment:Testing performed by : [facility] [place] [address] MCHC 33.0 32.3 - 35.7 g/dL CERNER CH Comment:Testing performed by : [facility] [place] [address] RDW CV 13.7 11.1 - 14.9 % CERNER CH Comment:Testing performed by : [facility] [place] [address] RDW SD 48.7(H) 35.7 - 48.1 fL CERNER CH Comment:Testing performed by : [facility] [place] [address] NRBC abs 0.00 0.00 - 0.01 K/cumm STEPHANIE Comment:Testing performed by : [facility], [place] [address] ANC Prelim 3.78 1.50 - 6.50 K/cumm STEPHANIE Comment: Interpretive Data The rapid ANC is a preliminary automated count and may vary from the final ANC (Neut Abs) reported in the WBC differential that follows. Current interpretive data was last revised 2024. Testing performed by: [facility], [place] [address] Blood 01/13/2025 8:44 AM TECHNICAL DATA ANALYST 01/13/2025 8:46 AM TECHNICAL DATA ANALYST us Xander Gutiérrez MD LAB BLOOD ORDERABLES Final Resul t Performing Organization Address City/[facility]/ZIP Co de Phone Number STEPHANIE [address] [address] Department [place] [address] * (ABNORMAL) Protein electrophoresis with reflex, serum with interpretation (01/13/2025 8:44 AM TECHNICAL DATA ANALYST) Protein, sr 5.6(L) 6.2 - 8.2 g/dL Albumin 3.6 3.2 - 5.0 g/dL CERNER CH Alpha-1 globulin 0.3 0.2 - 0.4 g/dL CERNER CH Alpha-2 globulin 0.7 0.5 - 1.0 g/dL CERNER CH Beta-1 globulin 0.4 0.3 - 0.6 g/dL CERNER CH Beta-2 globulin 0.3 0.2 - 0.6 g/dL CERNER CH Gamma globulin 0.3(L) 0.5 - 1.7 g/dL CERNER CH Rstr Pk Gamma 0.1(H) 0.0 - 0.0 g/dL CERNER CH SPEP interp See Cl Path Rpt STEPHANIE Blood 01/13/2025 8:44 AM TECHNICAL DATA ANALYST 01/13/2025 9:38 AM TECHNICAL DATA ANALYST us Xander Gutiérrez MD LAB BLOOD ORDERABLES Final Resul t STEPHANIE BAER [address] [address] Department [place] [address] * Lactate dehydrogenase (LD) (01/13/2025 8:44 AM TECHNICAL DATA ANALYST) Pathologist [facility] [place] Lactate dehydrogenase (LDH) 203 100 - 250 Units/L Comment:Testing performed by : [facility], [place] [address] Blood 01/13/2025 8:44 AM TECHNICAL DATA ANALYST 01/13/2025 8:46 AM TECHNICAL DATA ANALYST Xander Gutiérrez MD LAB BLOOD ORDERABLES Final Resul t Performing Organization Address [facility] de Phone Number STEPHANIE [address] [address] Department [place] [address] * (ABNORMAL) IgA (01/13/2025 8:44 AM TECHNICAL DATA ANALYST) Pathologist [facility] [place] Immunoglobulin A 15(L) 70 - 400 mg/dL Blood 01/13/2025 8:44 AM TECHNICAL DATA ANALYST 01/13/2025 9:37 AM TECHNICAL DATA ANALYST Xander Gutiérrez MD LAB BLOOD ORDERABLES Final Resul t Performing Organization Address [facility] de Phone Number STEPHANIE [address] [address] Department [place] [place] [address] * (ABNORMAL) IgM (01/13/2025 8:44 AM TECHNICAL DATA ANALYST) Pathologist [facility] [place] Immunoglobulin M <25(L) 40 - 150 mg/dL Blood 01/13/2025 8:44 AM TECHNICAL DATA ANALYST 01/13/2025 9:37 AM TECHNICAL DATA ANALYST us Xander Gutiérrez MD LAB BLOOD ORDERABLES Final Resul t Performing Organization Address [facility] de Phone Number STEPHANIE [address] [address] Department [place] [employer] [place] [address] * (ABNORMAL) IgG (01/13/2025 8:44 AM TECHNICAL DATA ANALYST) Immunoglobulin G 315(L) 700 - 1,600 mg/dL Blood 01/13/2025 8:44 AM TECHNICAL DATA ANALYST 01/13/2025 9:37 AM TECHNICAL DATA ANALYST us Xander Gutiérrez MD LAB BLOOD ORDERABLES Final Resul t [facility] [address] [address] Department [place] [address] * (ABNORMAL) Comprehensive metabolic panel (01/13/2025 8:44 AM TECHNICAL DATA ANALYST) Sodium 139 135 - 145 mmol/L Comment:Testing performed by : [facility] [place] [address] Potassium, pl 4.1 3.3 - 4.9 mmol/L [facility] Comment:Testing performed by : [facility] [place] [address] Chloride 102 97 - 110 mmol/L [facility] Comment:Testing performed by : [facility] [place] [address] CO2 25 22 - 32 mmol/L CERNER Comment:Testing performed by : [facility] [place] [address] Anion gap 12 2 - 15 mmol/L [facility] Comment:Testing performed by : [facility] [place] [address] BUN 17 6 - 25 mg/dL [facility] Comment:Testing performed by : [facility] [place] [address] Creatinine 0.71 0.60 - 1.10 mg/dL [facility] Comment:Testing performed by : [facility] [place] [address] Glucose 138 70 - 199 mg/dL [facility] Comment: Interpretive Data Fasting glucose >/= 126 [...] classification and Diagnosis of Diabetes Diabetes Care 2021; 46: S19-S40. Current interpretive data was last revised 2022. Testing performed by: [facility] [place] [address] Calcium 8.9 8.5 - 10.3 mg/dL CERNER CH Comment:Testing performed by : [facility] [place] [address] Bilirubin, total 0.4 0.1 - 1.2 mg/dL CERNER CH Comment:Testing performed by : [facility] [place] [address] Protein, pl 5.8(L) 6.5 - 8.5 g/dL CERNER CH Comment:Testing performed by : [facility] [place] [address] Albumin 4.0 3.5 - 5.0 g/dL CERNER CH Comment:Testing performed by : [facility] [place] [address] Alk phos 81 40 - 130 Units/L CERNER CH Comment:Testing performed by : [facility] [place] [address] ALT 28 7 - 45 Units/L CERNER CH Comment:Testing performed by : [facility] [place] [address] AST 21 10 - 45 Units/L CERNER CH Comment:Testing performed by : [facility] [place] [address] Blood 01/13/2025 8:44 AM TECHNICAL DATA ANALYST 01/13/2025 8:46 AM TECHNICAL DATA ANALYST us Xander Guitérrez MD LAB BLOOD ORDERABLES Edited Resu lt - Final [facility] [address] [address] Department [place] [address] * XR Hip Right W Pelvis 2 or 3 Views (01/07/2025 11:14 AM TECHNICAL DATA ANALYST) Anatomical Region Laterality Modality Lower Extremities, Hip, Pelvis Right C omputed Radiography 01/07/2025 12:5 5 PM TECHNICAL DATA ANALYST Impressions 01/07/2025 12:55 PM TECHNICAL DATA ANALYST 1. 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 This can be further characterized with MRI as clinically indicated. Electronically signed by: Tino Sepulveda MD Narrative 01/07/2025 12:55 PM TECHNICAL DATA ANALYST EXAMINATION: XR HIP RIGHT 2 OR 3 VIEWS W PELVIS HISTORY: Right Hip COMPARISON: 11/05/2024 FINDINGS: Mild right hip osteoarthritis and femoral head remodeling, similar as on 11/05/2024. A healed right inferior pubic ramus fracture is noted. No acute displaced fracture present. There is osseous demineralization. Partially imaged degenerative changes in the lumbar spine. Procedure Note Tino Sepulveda MD - 01/07/2025 EXAMINATION: XR HIP RIGHT 2 OR 3 VIEWS W PELVIS HISTORY: Right Hip COMPARISON: 11/05/2024 FINDINGS: Mild right hip osteoarthritis and femoral head remodeling, similar as on 11/05/2024. A healed right inferior pubic ramus fracture is noted. No acute displaced fracture present. There is osseous demineralization. Partially imaged degenerative changes in the lumbar spine. IMPRESSION: 1. 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 This can be further characterized with MRI as clinically indicated. Electronically signed by: Tino Sepulveda MD Luis Alcantara MD IMG XR PROCEDURES Final Re sult * eGFR (01/06/2025 8:34 AM TECHNICAL DATA ANALYST) eGFR >90 >=60 mL/min/1. 73 m2 Comment: [...] was last reviewed 2020. Testing performed by: [facility] [place] [address] Blood 01/06/2025 8:34 AM TECHNICAL DATA ANALYST 01/06/2025 8:41 AM TECHNICAL DATA ANALYST us Xander Gutiérrez MD LAB BLOOD ORDERABLES Final Resul t STEPHANIE [address] [address] Department [place] [address] * Differential, auto (01/06/2025 8:34 AM TECHNICAL DATA ANALYST) Neutrophil abs 3.09 1.50 - 6.50 K/cumm Comment:Testing performed by : [facility] [place] [address] Imm gran abs 0.00 0.00 - 0.10 K/cumm CERNER Comment:Testing performed by : [facility] [place] [address] Lymphocyte abs 1.69 0.80 - 3.30 K/cumm CERNER Comment:Testing performed by : [facility] [place] [address] Monocyte abs 0.77 0.20 - 0.80 K/cumm CERNER Comment:Testing performed by : [facility] [place] [address] Eosinophil abs 0.05 0.00 - 0.50 K/cumm CERNER Comment:Testing performed by : [facility] [place] [address] Basophil abs 0.00 0.00 - 0.10 K/cumm CERNER Comment:Testing performed by : [facility] [place] [address] Neutrophil pct 55.1 % CERNER Comment: Interpretive Data Percent cell count reference ranges are not reported, since discordance with absolute values may lead to misinterpretation of CBC data. Current Interpretive Data was last revised on 2017. Testing performed by: [facility] [place] [address] Imm gran pct 0.0 % [facility] Comment: Interpretive Data Percent cell count reference ranges are not reported, since discordance with absolute values may lead to misinterpretation of CBC data. Current Interpretive Data was last revised on 2017. Testing performed by: [facility] [place] [address] Lymphocyte pct 30.2 % [facility] Comment: Interpretive Data Percent cell count reference ranges are not reported, since discordance with absolute values may lead to misinterpretation of CBC data. Current Interpretive Data was last revised on 2017. Testing performed by: [facility] [place] [address] Monocyte pct 13.8 % CERNER Comment: Interpretive Data Percent cell count reference ranges are not reported, since discordance with absolute values may lead to misinterpretation of CBC data. Current Interpretive Data was last revised on 2017. Testing performed by: [facility] [place] [address] Eosinophil pct 0.9 % [facility] Comment: Interpretive Data Percent cell count reference ranges are not reported, since discordance with absolute values may lead to misinterpretation of CBC data. Current Interpretive Data was last revised on 2017. Testing performed by: [facility] [place] [address] Basophil pct 0.0 % [facility] Comment: Interpretive Data Percent cell count reference ranges are not reported, since discordance with absolute values may lead to misinterpretation of CBC data. Current Interpretive Data was last revised on 2017. Testing performed by: [facility] [place] [address] Blood 01/06/2025 8:34 AM TECHNICAL DATA ANALYST 01/06/2025 8:41 AM TECHNICAL DATA ANALYST us Xander Gutiérrez MD LAB BLOOD ORDERABLES Final Resul t STEPHANIE [address] [address] Department [place] [address] * (ABNORMAL) CBC with auto differential (01/06/2025 8:34 AM TECHNICAL DATA ANALYST) WBC 5.60 3.80 - 9.90 K/cumm Comment:Testing performed by : [facility] [place] [address] Hgb 10.6(L) 11.9 - 15.5 g/dL CERNER CH Comment:Testing performed by : [facility] [place] [address] Hct 32.3(L) 35.6 - 45.5 % CERNER CH Comment:Testing performed by : [facility] [place] [address] Plt 149(L) 150 - 400 K/cumm CERNER CH Comment:Testing performed by : [facility] [place] [address] MPV 10.1 9.1 - 12.3 fL CERNER CH Comment:Testing performed by : [facility] [place] [address] RBC 3.27(L) 3.90 - 5.20 M/cumm CERNER CH Comment:Testing performed by : [facility] [place] [address] MCV 98.8(H) 81.3 - 96.4 fL CERNER CH Comment:Testing performed by : [facility] [place] [address] MCH 32.4 27.1 - 33.3 pg CERNER CH Comment:Testing performed by : [facility] [place] [address] MCHC 32.8 32.3 - 35.7 g/dL CERNER CH Comment:Testing performed by : [facility] [place] [address] RDW CV 13.6 11.1 - 14.9 % CERNER CH Comment:Testing performed by : [facility] [place] [address] RDW SD 49.5(H) 35.7 - 48.1 fL CERNER CH Comment:Testing performed by : [facility] [place] [address] NRBC abs 0.00 0.00 - 0.01 K/cumm CERNER CH Comment:Testing performed by : [facility] [place] [address] ANC Prelim 3.09 1.50 - 6.50 K/cumm STEPHANIE CH Comment: Interpretive Data The rapid ANC is a preliminary automated count and may vary from the final ANC (Neut Abs) reported in the WBC differential that follows. Current interpretive data was last revised 2024. Testing performed by: [facility] [place] [address] Blood 01/06/2025 8:34 AM TECHNICAL DATA ANALYST 01/06/2025 8:41 AM TECHNICAL DATA ANALYST us Xander Gutiérrez MD LAB BLOOD ORDERABLES Final Resul t STEPHANIE BAER [address] [address] Department [place] [address] * (ABNORMAL) Comprehensive metabolic panel (01/06/2025 8:34 AM TECHNICAL DATA ANALYST) Sodium 138 135 - 145 mmol/L Comment:Testing performed by : [facility] [place] [address] Potassium, pl 3.9 3.3 - 4.9 mmol/L [facility] Comment:Testing performed by : [facility] [place] [address] Chloride 103 97 - 110 mmol/L [facility] Comment:Testing performed by : [facility] [place] [address] CO2 24 22 - 32 mmol/L STEPHANIE CH Comment:Testing performed by : [facility] [place] [address] Anion gap 11 2 - 15 mmol/L [facility] Comment:Testing performed by : [facility] [place] [address] BUN 16 6 - 25 mg/dL [facility] Comment:Testing performed by : [facility] [place] [address] Creatinine 0.68 0.60 - 1.10 mg/dL [facility] Comment:Testing performed by : [facility] [place] [address] Glucose 123 70 - 199 mg/dL [facility] Comment: Interpretive Data Fasting glucose >/= [...] classification and Diagnosis of Diabetes Diabetes Care 2021; 46: S19-S40. Current interpretive data was last revised 2022. Testing performed by: [facility] [place] [address] Calcium 8.6 8.5 - 10.3 mg/dL CERNER CH Comment:Testing performed by : [facility] [place] [address] Bilirubin, total 0.4 0.1 - 1.2 mg/dL CERNER CH Comment:Testing performed by : [facility] [place] [address] Protein, pl 5.6(L) 6.5 - 8.5 g/dL CERNER CH Comment:Testing performed by : [facility] [place] [address] Albumin 4.0 3.5 - 5.0 g/dL CERNER CH Comment:Testing performed by : [facility] [place] [address] Alk phos 72 40 - 130 Units/L CERNER CH Comment:Testing performed by : [facility] [place] [address] ALT 17 7 - 45 Units/L CERNER CH Comment:Testing performed by : [facility] [place] [address] AST 17 10 - 45 Units/L CERNER CH Comment:Testing performed by : [facility] [place] [address] Blood 01/06/2025 8:34 AM TECHNICAL DATA ANALYST 01/06/2025 8:41 AM TECHNICAL DATA ANALYST us Xander Gutiérrez MD LAB BLOOD ORDERABLES Final Resul t [facility] [address] [address] Department [place] [address] * RBC antigen genotyping -Antigen Types: Human erythrocyte antigen panel (12/30/2024 8:26 AM TECHNICAL DATA ANALYST) RBC antigen genotyping See scanned report Blood 12/30/2024 8:26 AM TECHNICAL DATA ANALYST 01/12/2025 9:26 AM TECHNICAL DATA ANALYST Narrative STEPHANIE BAER - 01/12/2025 9:27 AM TECHNICAL DATA ANALYST Antigen Types:->Human erythrocyte antigen panel Xander Gutiérrez MD LAB BLOOD BANK TEST ORDERABLES E dited Result - Final STEPHANIE BAER [address] [address] Department [place] [address] * eGFR (12/30/2024 8:26 AM TECHNICAL DATA ANALYST) eGFR 88 >=60 mL/min/1. 73 m2 Comment: Interpretive Data [...] was last reviewed 2020. Testing performed by: [facility], [place] [address] Blood 12/30/2024 8:26 AM TECHNICAL DATA ANALYST 12/30/2024 8:38 AM TECHNICAL DATA ANALYST Xander Gutiérrez MD LAB BLOOD ORDERABLES Final Resul t [facility] [address] [address] Department [place] [address] * Differential, auto (12/30/2024 8:26 AM TECHNICAL DATA ANALYST) Neutrophil abs 4.61 1.50 - 6.50 K/cumm Comment:Testing performed by : [facility] [place] [address] Imm gran abs 0.02 0.00 - 0.10 K/cumm CERNER CH Comment:Testing performed by : [facility] [place] [address] Lymphocyte abs 2.16 0.80 - 3.30 K/cumm CERNER CH Comment:Testing performed by : [facility] [place] [address] Monocyte abs 0.78 0.20 - 0.80 K/cumm CERNER CH Comment:Testing performed by : [facility] [place] [address] Eosinophil abs 0.05 0.00 - 0.50 K/cumm CERNER CH Comment:Testing performed by : [facility] [place] [address] Basophil abs 0.01 0.00 - 0.10 K/cumm CERNER CH Comment:Testing performed by : [facility] [place] [address] Neutrophil pct 60.4 % CERNER Comment: Interpretive Data Percent cell count reference ranges are not reported, since discordance with absolute values may lead to misinterpretation of CBC data. Current Interpretive Data was last revised on 2017. Testing performed by: [facility] [place] [address] Imm gran pct 0.3 % CERNER Comment: Interpretive Data Percent cell count reference ranges are not reported, since discordance with absolute values may lead to misinterpretation of CBC data. Current Interpretive Data was last revised on 2017. Testing performed [facility]: [facility] [place] [address] Lymphocyte pct 28.3 % CERNER Comment: Interpretive Data Percent cell count reference ranges are not reported, since discordance with absolute values may lead to misinterpretation of CBC data. Current Interpretive Data was last revised on 2017. Testing performed by: [facility] [place] [address] Monocyte pct 10.2 % STEPHANIE Comment: Interpretive Data Percent cell count reference ranges are not reported, since discordance with absolute values may lead to misinterpretation of CBC data. Current Interpretive Data was last revised on 2017. Testing performed by: [facility] [place] [address] Eosinophil pct 0.7 % STEPHANIE BAER Comment: Interpretive Data Percent cell count reference ranges are not reported, since discordance with absolute values may lead to misinterpretation of CBC data. Current Interpretive Data was last revised on 2017. Testing performed by: [facility] [place] [address] Basophil pct 0.1 % STEPHANIE Comment: Interpretive Data Percent cell count reference ranges are not reported, since discordance with absolute values may lead to misinterpretation of CBC data. Current Interpretive Data was last revised on 2017. Testing performed by: [facility] [place] [address] Blood 12/30/2024 8:26 AM TECHNICAL DATA ANALYST 12/30/2024 8:38 AM TECHNICAL DATA ANALYST us Xander Gutiérrez MD LAB BLOOD ORDERABLES Final Resul t [facility] [address] [address] Department [place] [address] * (ABNORMAL) CBC with auto differential (12/30/2024 8:26 AM TECHNICAL DATA ANALYST) WBC 7.63 3.80 - 9.90 K/cumm Comment:Testing performed by : [facility] [place] [address] Hgb 10.6(L) 11.9 - 15.5 g/dL STEPHANIE BAER Comment:Testing performed by : [facility] [place] [address] Hct 32.2(L) 35.6 - 45.5 % STEPHANIE Comment:Testing performed by : [facility] [place] [address] Plt 238 150 - 400 K/cumm CERNER CH Comment:Testing performed by : [facility] [place] [address] MPV 10.0 9.1 - 12.3 fL CERNER CH Comment:Testing performed by : [facility] [place] [address] RBC 3.29(L) 3.90 - 5.20 M/cumm CERNER CH Comment:Testing performed by : [facility] [place] [address] MCV 97.9(H) 81.3 - 96.4 fL CERNER CH Comment:Testing performed by : [facility] [place] [address] MCH 32.2 27.1 - 33.3 pg CERNER CH Comment:Testing performed by : [facility] [place] [address] MCHC 32.9 32.3 - 35.7 g/dL CERNER CH Comment:Testing performed by : [facility] [place] [address] RDW CV 13.7 11.1 - 14.9 % CERNER CH Comment:Testing performed by : [facility] [place] [address] RDW SD 49.0(H) 35.7 - 48.1 fL CERNER CH Comment:Testing performed by : [facility] [place] [address] NRBC abs 0.00 0.00 - 0.01 K/cumm CERNER CH Comment:Testing performed by : [facility] [place] [address] ANC Prelim 4.61 1.50 - 6.50 K/cumm CERNER CH Comment: Interpretive Data The rapid ANC is a preliminary automated count and may vary from the final ANC (Neut Abs) reported in the WBC differential that follows. Current interpretive data was last revised 2024. Testing performed by: [facility] [place] [address] Blood 12/30/2024 8:26 AM TECHNICAL DATA ANALYST 12/30/2024 8:38 AM TECHNICAL DATA ANALYST us Xander Brock MD LAB BLOOD ORDERABLES Final Resul t Performing Organization Address [facility] Co de Phone Number STEPHANIE BAER [address] [address] [facility] [place] [place] [address] * Type and screen (12/30/2024 8:26 AM TECHNICAL DATA ANALYST) Pathologist [facility] ABO Rh A Positive Michael, indirect Negative CERNER CH Blood 12/30/2024 8:26 AM TECHNICAL DATA ANALYST 12/30/2024 9:38 AM TECHNICAL DATA ANALYST Narrative CERNER CH - 12/30/2024 3:54 PM TECHNICAL DATA ANALYST Has the patient had daratumumab (Darzalex) or isatuximab (Sarclisa) in the past 6 months?->No Xander Gutiérrez MD LAB BLOOD BANK TEST ORDERABLES F inal Result Performing Organization Address [facility] de Phone Number STEPHANIE BAER [address] [address] Department [place] [address] * (ABNORMAL) Comprehensive metabolic panel (12/30/2024 8:26 AM TECHNICAL DATA ANALYST) Pathologist [facility] Sodium 137 135 - 145 mmol/L Comment:Testing performed by : [facility] [place] [id number] Potassium, pl 3.9 3.3 - 4.9 mmol/L CERNER CH Comment:Testing performed by : [facility] [place] [address] Chloride 101 97 - 110 mmol/L CERNER CH Comment:Testing performed by : [facility] [place] [address] CO2 24 22 - 32 mmol/L CERNER CH Comment:Testing performed by : [facility] [place] [address] Anion gap 12 2 - 15 mmol/L CERNER CH Comment:Testing performed by : [facility] [place] [address] BUN 14 6 - 25 mg/dL CERNER CH Comment:Testing performed by : [facility] [place] [address] Creatinine 0.72 0.60 - 1.10 mg/dL CERNER CH Comment:Testing performed by : [facility] [place] [address] Glucose 132 70 - 199 mg/dL CERNER CH Comment: [...] classification and Diagnosis of Diabetes Diabetes Care 2021; 46: S19-S40. Current interpretive data was last revised 2022. Testing performed by: [facility] [place] [address] Calcium 8.8 8.5 - 10.3 mg/dL CERNER CH Comment:Testing performed by : [facility] [place] [address] Bilirubin, total 0.5 0.1 - 1.2 mg/dL CERNER CH Comment:Testing performed by : [facility] [place] [address] Protein, pl 5.7(L) 6.5 - 8.5 g/dL CERNER CH Comment:Testing performed by : [facility] [place] [address] Albumin 4.0 3.5 - 5.0 g/dL CERNER CH Comment:Testing performed by : [facility] [place] [address] Alk phos 77 40 - 130 Units/L CERNER CH Comment:Testing performed by : [facility] [place] [address] ALT 14 7 - 45 Units/L CERNER CH Comment:Testing performed by : [facility] [place] [address] AST 24 10 - 45 Units/L CERNER CH Comment:Testing performed by : [facility] [place] [address] Blood 12/30/2024 8:26 AM TECHNICAL DATA ANALYST 12/30/2024 8:38 AM TECHNICAL DATA ANALYST us Xander Gutiérrez MD LAB BLOOD ORDERABLES Final Resul t STEPHANIE BAER [address] [address] Department [place] [address] * eGFR (12/23/2024 1:07 PM CDT) eGFR 90 >=60 mL/min/1. 73 m2 Comment: Interpretive Data [...] Current interpretive data was last reviewed 2020. Blood 12/23/2024 1:07 PM CDT 12/23/2024 1:12 PM CDT us Xander Gutiérrez MD LAB BLOOD ORDERABLES Final Resul t Performing Organization Address City/[facility]/ZIP Co de Phone Number EMYUSAMA MERLINE [facility] Department [place] [address] * (ABNORMAL) Differential, auto (12/23/2024 1:07 PM CDT) Neutrophil abs 5.21 1.50 - 6.50 K/cumm Comment:Testing performed by : [facility] [place] [place] [facility], [address] [place] [phone] Lymphocyte abs 2.56 0.80 - 3.30 K/cumm STEPHANIE AQUINO Comment:Testing performed by : [facility] [place] [place] [facility], [address] [place] [phone] Monocyte abs 0.85(H) 0.20 - 0.80 K/cumm CERNER [facility] Comment:Testing performed by : [facility]e [facility], [address] [place] [phone] Eosinophil abs 0.05 0.00 - 0.50 K/cumm CERNER [facility] Comment:Testing performed by : [facility], [address] [place] [phone] Basophil abs 0.02 0.00 - 0.10 K/cumm CERNER [facility] Comment:Testing performed by : [facility], [address] [place] [phone] Neutrophil pct 60.0 % CERNER [facility] Comment: Interpretive Data Percent cell count reference ranges are not reported, since discordance with absolute values may lead to misinterpretation of CBC data. Current Interpretive Data was last revised on 2017. Testing performed by: [facility], [address] [place] [phone] Lymphocyte pct 29.5 % CERNER [facility] Comment: Interpretive Data Percent cell count reference ranges are not reported, since discordance with absolute values may lead to misinterpretation of CBC data. Current Interpretive Data was last revised on 2017. Testing performed by: [facility], [address] [place] [phone] Monocyte pct 9.7 % CERNER [facility] Comment: Interpretive Data Percent cell count reference ranges are not reported, since discordance with absolute values may lead to misinterpretation of CBC data. Current Interpretive Data was last revised on 2017. Testing performed by: [facility], [address] [place] [phone] Eosinophil pct 0.6 % CERNER [facility] Comment: Interpretive Data Percent cell count reference ranges are not reported, since discordance with absolute values may lead to misinterpretation of CBC data. Current Interpretive Data was last revised on 2017. Testing performed by: [facility], [address] [place] [phone] Basophil pct 0.2 % CERNER [facility] Comment: Interpretive Data Percent cell count reference ranges are not reported, since discordance with absolute values may lead to misinterpretation of CBC data. Current Interpretive Data was last revised on 2017. Testing performed by: [facility] [place] [place] [facility], [address] [place] [phone] Blood 12/23/2024 1:07 PM CDT 12/23/2024 1:10 PM CDT Xander Gutiérrez MD LAB BLOOD ORDERABLES Final Resul t Performing Organization Address [facility] Co de Phone Number [facility] Department [place] [address] * (ABNORMAL) Immunoglobulin free light chains (12/23/2024 1:07 PM CDT) [place]/Lambda ratio BJ 17.37(H) 0.26 - 1.65 Comment: Interpretive Data The Binding Site FreeLite assay procedure was used. Results from different manufacturers or methods may not be comparable. Serial testing should be performed using the same methods and instrumentation. Current Interpretive Data was last revised on 2023. [place] free light chain BJ 12.33(H) 0.33 - 1.94 mg/dL [facility] Comment: Interpretive Data The Binding Site FreeLite assay procedure was used. Results from different manufacturers or methods may not be comparable. Serial testing should be performed using the same methods and instrumentation. Current Interpretive Data was last revised on 2023. Lambda free light chain BJ 0.71 0.57 - 2.63 mg/dL [facility] Comment: Interpretive Data The Binding Site FreeLite assay procedure was used. Results from different manufacturers or methods may not be comparable. Serial testing should be performed using the same methods and instrumentation. Current Interpretive Data was last revised on 2023. Blood 12/23/2024 1:07 PM CDT 12/23/2024 3:04 PM CDT Xander Gutiérrez MD LAB BLOOD ORDERABLES Final Resul t Performing Organization Address [facility]/State/ZIP Co de Phone Number STEPHANIE RICK [facility] Department [place] [address] * (ABNORMAL) CBC with auto differential (12/23/2024 1:07 PM CDT) WBC 8.68 3.80 - 9.90 K/cumm Comment:Testing performed by : [facility] Lab, [address] [place] [address] Hgb 10.8(L) 11.9 - 15.5 g/dL CERUSAMA RICK Comment:Testing performed by : [facility] Lab, [address] [place] [address] Hct 32.7(L) 35.6 - 45.5 % STEPHANIE RICK Comment:Testing performed by : [facility] Lab, [address] [place] [address] Plt 145(L) 150 - 400 K/cumm STEPHANIE RICK Comment:Testing performed by : [facility], [address] [place] [address] MPV 9.2 6.8 - 10.4 fL CERUSAMA RICK Comment:Testing performed by : [facility], [address] [place] [address] RBC 3.36(L) 3.90 - 5.20 M/cumm CERUSAMA RICK Comment:Testing performed by : [facility] Lab, [address] [place] [address] MCV 97.2(H) 81.3 - 96.4 fL CERUSAMA BJ Comment:Testing performed by : [facility] Lab, [address] [place] [address] MCH 32.2 27.1 - 33.3 pg CERUSAMA RICK Comment:Testing performed by : [facility] Lab, [address] [place] [address] MCHC 33.2 32.3 - 35.7 g/dL CERUSAMA BJ Comment:Testing performed by : [facility] Lab, [address] [place] [address] RDW CV 14.5 11.1 - 14.9 % CERNER [facility] Comment:Testing performed by : [facility], [address] [place] [phone] NRBC abs 0.00 0.00 - 0.01 K/cumm [facility] Comment:Testing performed by : [facility] Lab, [address] [place] [phone] Blood 12/23/2024 1:07 PM CDT 12/23/2024 1:10 PM CDT us Xander Gutiérrez MD LAB BLOOD ORDERABLES Final Resul t Performing Organization Address City/[facility]/ZIP Co de Phone Number [facility] Department [place] [address] * (ABNORMAL) Protein electrophoresis with reflex, serum with interpretation (12/23/2024 1:07 PM CDT) Protein, sr 6.1(L) 6.2 - 8.2 g/dL Albumin 4.0 3.2 - 5.0 g/dL [facility] Alpha-1 globulin 0.3 0.2 - 0.4 g/dL [facility] Alpha-2 globulin 0.8 0.5 - 1.0 g/dL [facility] Beta-1 globulin 0.4 0.3 - 0.6 g/dL [facility] Beta-2 globulin 0.3 0.2 - 0.6 g/dL [facility] Gamma globulin 0.3(L) 0.5 - 1.7 g/dL [facility] SPEP interp Please see comment [facility] Comment: No apparent monoclonal peak Decreased gamma globulins Electrophoretic pattern appears similar to previous sample 11-19-24 Reviewed and Signed by Shayne Miranda MD, PhD 12/24/2024 Blood 12/23/2024 1:07 PM CDT 12/23/2024 3:04 PM CDT us Xander Gutiérrez MD LAB BLOOD ORDERABLES Final Resul t [facility] [place] [address] * Lactate dehydrogenase (LD) (12/23/2024 1:07 PM CDT) [facility] Lactate dehydrogenase (LDH) 194 100 - 250 Units/L Blood 12/23/2024 1:07 PM CDT 12/23/2024 1:12 PM CDT Xander Gutiérrez MD LAB BLOOD ORDERABLES Final Resul t Performing Organization Address [facility] [place] [address] * (ABNORMAL) IgA (12/23/2024 1:07 PM CDT) Pathologist [facility] Immunoglobulin A 36(L) 70 - 400 mg/dL Blood 12/23/2024 1:07 PM CDT 12/23/2024 1:41 PM CDT Xander Gutiérrez MD LAB BLOOD ORDERABLES Final Resul t Performing Organization Address [facility] Co de Phone Number [facility] Department [place] [address] * (ABNORMAL) IgM (12/23/2024 1:07 PM CDT) [facility] Immunoglobulin M <25(L) 40 - 230 mg/dL Blood 12/23/2024 1:07 PM CDT 12/23/2024 1:41 PM CDT Xander Gutiérrez MD LAB BLOOD ORDERABLES Final Resul t Performing Organization Address [facility] [place] [address] * (ABNORMAL) IgG (12/23/2024 1:07 PM CDT) Immunoglobulin G <300(L) 700 - 1,600 mg/dL Blood 12/23/2024 1:07 PM CDT 12/23/2024 1:41 PM CDT us Xander Gutiérrez MD LAB BLOOD ORDERABLES Final Resul t [facility] Department [place] [address] * (ABNORMAL) Comprehensive metabolic panel (12/23/2024 1:07 PM CDT) Sodium 137 135 - 145 mmol/L Potassium, pl 4.2 3.3 - 4.9 mmol/L [facility] Chloride 101 97 - 110 mmol/L [facility] CO2 27 22 - 32 mmol/L [facility] Anion gap 9 2 - 15 mmol/L [facility] BUN 15 6 - 25 mg/dL [facility] Creatinine 0.71 0.60 - 1.10 mg/dL [facility] Glucose 90 70 - 199 mg/dL [facility] Comment: Interpretive Data Fasting glucose >/= 126 [...] classification and Diagnosis of Diabetes Diabetes Care 2021; 46: S19-S40. Current interpretive data was last revised 2022. Calcium 9.1 8.5 - 10.3 mg/dL [facility] Bilirubin, total 0.3 0.1 - 1.2 mg/dL [facility] Protein, pl 6.0(L) 6.5 - 8.5 g/dL [facility] Albumin 4.1 3.5 - 5.0 g/dL [facility] Alk phos 73 40 - 130 Units/L CERNER [facility] ALT 17 7 - 45 Units/L [facility] AST 19 10 - 45 Units/L [facility] Blood 12/23/2024 1:07 PM CDT 12/23/2024 1:12 PM CDT us Xander Gutiérrez MD LAB BLOOD ORDERABLES Final Resul t STEPHANIE [facility] Department [place] [address] * Clinical pathology report (12/16/2024 9:27 AM CDT) Miscellaneous 12/16/2024 9:2 7 AM CDT 12/18/2024 7:52 AM CDT Narrative 12/18/2024 1:35 PM CDT [facility] results best viewed via link to PDF [facility] Department of Pathology [address] [place] [phone] Final Report Note to Patients: This report may contain a detailed description of human tissue sent by a health care provider to the laboratory for pathologic evaluation. The content of this report is essential for diagnosis and may provide important critical findings. This information may be unfamiliar to patients to review without a medical professional present. It is advised that the patient review this report in the presence of a health care provider who can answer questions and explain the details. Patient Name: ESTRADA HANLEY Address: [address] [place], [place] [id number] Gender: F : 1950 (Age: 74) Service: Location: N : [id number] [facility] #: [id number] Patient Type: EP REF LAB SERIES Taken: 12/16/2024 Received: 12/18/2024 Accessioned: 12/18/2024 Physician(s): Xander Gutiérrez M.D. Specimen(s) Received A: Blood (serum) Serum Protein ElectrophoresisReported:12/18/2024 Interpretation: Serum Protein Electrophoresis: Moderate hypogammaglobulinemia. Comment: Serum Protein Electrophoresis: Electrophoresis shows a moderate hypogammaglobulinemia. See Epic and/or separate report for protein fraction table. Tino Wu MD PhDReport Electronically Reviewed and Signed Out By Tino Wu MD PhD 12/18/2024 13:32:20 The performance characteristics of some immunohistochemical stains, fluorescence in-situ hybridization tests and immunophenotyping by flow cytometry cited in this report (if any) were determined by the Surgical Pathology Department at [facility] as part of an ongoing senior software quality analyst program and in compliance with federally mandated regulations drawn from the Clinical Laboratory Improvement Act of 1988 (CLIA '88). Some of these tests rely on the use of analyte specific reagents and are subject to specific labeling requirements by the US Food and Drug Administration. Such diagnostic tests may only be performed in a facility that is certified by the Department of Health and Human Services as a high complexity laboratory under CLIA '88. The FDA has determined that such clearance or approval is not necessary. This test is used for clinical purposes. It should not be regarded as investigational or for research. Nevertheless, federal rules concerning the medical use of analyte specific reagents require that the following disclaimer be attached to the report: This test was developed and its performance characteristics determined by the Surgical Pathology Department [facility]. It has not been cleared or approved by the U. S. Food and Drug Administration. REPORT IMAGES AND SCANNED DOCUMENTS, IF INCLUDED, ONLY VIEWABLE IN PDF VERSION OF REPORTe o us Xander Gutiérrez MD LAB PATHOLOGY ORDERABLES Final R esult * eGFR (12/16/2024 9:27 AM CDT) eGFR 84 >=60 mL/min/1. 73 m2 Comment: Interpretive Data [...] was last reviewed 2020. Testing performed by: [facility] [place] [address] Blood 12/16/2024 9:27 AM CDT 12/16/2024 9:30 AM CDT us Xander Gutiérrez MD LAB BLOOD ORDERABLES Final Resul t [facility] [address] [address] Department [place] [address] * Differential, auto (12/16/2024 9:27 AM CDT) Neutrophil abs 5.03 1.50 - 6.50 K/cumm Comment:Testing performed by : [facility] [place] [address] Imm gran abs 0.04 0.00 - 0.10 K/cumm CERNER Comment:Testing performed by : [facility] [place] [address] Lymphocyte abs 2.44 0.80 - 3.30 K/cumm CERNER Comment:Testing performed by : [facility] [place] [address] Monocyte abs 0.80 0.20 - 0.80 K/cumm CERNER Comment:Testing performed by : [facility] [place] [address] Eosinophil abs 0.05 0.00 - 0.50 K/cumm CERNER Comment:Testing performed by : [facility] [place] [address] Basophil abs 0.01 0.00 - 0.10 K/cumm CERNER Comment:Testing performed by : [facility] [place] [address] Neutrophil pct 60.0 % CERNER Comment: Interpretive Data Percent cell count reference ranges are not reported, since discordance with absolute values may lead to misinterpretation of CBC data. Current Interpretive Data was last revised on 2017. Testing performed by: [facility] [place] [address] Imm gran pct 0.5 % CERNER Comment: Interpretive Data Percent cell count reference ranges are not reported, since discordance with absolute values may lead to misinterpretation of CBC data. Current Interpretive Data was last revised on 2017. Testing performed by: [facility] [place] [address] Lymphocyte pct 29.2 % CERUSAMA Comment: Interpretive Data Percent cell count reference ranges are not reported, since discordance with absolute values may lead to misinterpretation of CBC data. Current Interpretive Data was last revised on 2017. Testing performed by: [facility] [place] [address] Monocyte pct 9.6 % CERUSAMA Comment: Interpretive Data Percent cell count reference ranges are not reported, since discordance with absolute values may lead to misinterpretation of CBC data. Current Interpretive Data was last revised on 2017. Testing performed by: [facility] [place] [address] Eosinophil pct 0.6 % STEPHANIE Comment: Interpretive Data Percent cell count reference ranges are not reported, since discordance with absolute values may lead to misinterpretation of CBC data. Current Interpretive Data was last revised on 2017. Testing performed by: [facility] [place] [address] Basophil pct 0.1 % CERUSAMA Comment: Interpretive Data Percent cell count reference ranges are not reported, since discordance with absolute values may lead to misinterpretation of CBC data. Current Interpretive Data was last revised on 2017. Testing performed by: [facility] [place] [address] Blood 12/16/2024 9:27 AM CDT 12/16/2024 9:30 AM CDT us Xander Gutiérrez MD LAB BLOOD ORDERABLES Final Resul t STEPHANIE BAER [address] [address] Saldiv[address] Department [place] [address] * (ABNORMAL) Immunoglobulin free light chains (12/16/2024 9:27 AM CDT) [place]/Lambda ratio 19.20(H) 0.26 - 1.65 [place] free light chain 14.01(H) 0.33 - 1.94 mg/dL STEPHANIE Comment: Interpretive Data The Rissa Ig [place] FLC assay procedure was used. Results from different manufacturers or methods may not be comparable. Serial testing should be performed using the same method. Lambda free light chain 0.73 0.57 - 2.63 mg/dL STEPHANIE Comment: Interpretive Data The Rissa Ig Lambda FLC assay procedure was used. Results from different manufacturers or methods may not be comparable. Serial testing should be performed using the same method. Blood 12/16/2024 9:27 AM CDT 12/16/2024 10:49 AM CDT us Xander Gutiérrez MD LAB BLOOD ORDERABLES Final Resul t STEPHANIE [address] [address] Department [place] [address] * (ABNORMAL) CBC with auto differential (12/16/2024 9:27 AM CDT) WBC 8.37 3.80 - 9.90 K/cumm Comment:Testing performed by : [facility] [place] [address] Hgb 11.2(L) 11.9 - 15.5 g/dL STEPHANIE Comment:Testing performed by : [facility] [place] [address] Hct 33.7(L) 35.6 - 45.5 % STEPHANIE Comment:Testing performed by : [facility] [place] [address] Plt 148(L) 150 - 400 K/cumm STEPHANIE Comment:Testing performed by : [facility] [place] [address] MPV 10.9 9.1 - 12.3 fL STEPHANIE Comment:Testing performed by : [facility] [place] [address] RBC 3.45(L) 3.90 - 5.20 M/cumm STEPHANIE Comment:Testing performed by : [facility] [place] [address] MCV 97.7(H) 81.3 - 96.4 fL STEPHANIE BAER Comment:Testing performed by : [facility] [place] [address] MCH 32.5 27.1 - 33.3 pg STEPHANIE BAER Comment:Testing performed by : [facility] [place] [address] MCHC 33.2 32.3 - 35.7 g/dL STEPHANIE BAER Comment:Testing performed by : [facility] [place] [address] RDW CV 13.6 11.1 - 14.9 % STEPHANIE BAER Comment:Testing performed by : [facility] [place] [address] RDW SD 49.1(H) 35.7 - 48.1 fL STEPHANIE BAER Comment:Testing performed by : [facility] [place] [address] NRBC abs 0.00 0.00 - 0.01 K/cumm STEPHANIE BAER Comment:Testing performed by : [facility] [place] [address] ANC Prelim 5.03 1.50 - 6.50 K/cumm STEPHANIE BAER Comment: Interpretive Data The rapid ANC is a preliminary automated count and may vary from the final ANC (Neut Abs) reported in the WBC differential that follows. Current interpretive data was last revised 2024. Testing performed by: [facility] [place] [address] Blood 12/16/2024 9:27 AM CDT 12/16/2024 9:30 AM CDT us Xander Gutiérrez MD LAB BLOOD ORDERABLES Final Resul t STEPHANIE BAER [address] [address] Department [place] [address] * (ABNORMAL) Protein electrophoresis with reflex, serum with interpretation (12/16/2024 9:27 AM CDT) Protein, sr 5.8(L) 6.2 - 8.2 g/dL Albumin 3.8 3.2 - 5.0 g/dL CERNER CH Alpha-1 globulin 0.3 0.2 - 0.4 g/dL [facility] Alpha-2 globulin 0.7 0.5 - 1.0 g/dL [facility] Beta-1 globulin 0.4 0.3 - 0.6 g/dL [facility] Beta-2 globulin 0.3 0.2 - 0.6 g/dL [facility] Gamma globulin 0.3(L) 0.5 - 1.7 g/dL [facility] SPEP interp See Cl Path Rpt [facility]ERNER CH Blood 12/16/2024 9:27 AM CDT 12/16/2024 10:49 AM CDT us Xander Gutiérrez MD LAB BLOOD ORDERABLES Final Resul t Performing Organization Address City/[facility] Co de Phone Number STEPHANIE BAER [address] [address] Department [place] [address] * Lactate dehydrogenase (LD) (12/16/2024 9:27 AM CDT) Lactate dehydrogenase (LDH) 185 100 - 250 Units/L Comment:Testing performed by : [facility], [place] [address] Blood 12/16/2024 9:27 AM CDT 12/16/2024 9:30 AM CDT Xander Gutiérrez MD LAB BLOOD ORDERABLES Final Resul t Performing Organization Address [facility] Co de Phone Number STEPHANIE [address] [address] Department [place] [address] * (ABNORMAL) IgA (12/16/2024 9:27 AM CDT) Immunoglobulin A 41(L) 70 - 400 mg/dL Blood 12/16/2024 9:27 AM CDT 12/16/2024 10:49 AM CDT Xander Gutiérrez MD LAB BLOOD ORDERABLES Final Resul t Performing Organization Address [facility] Co de Phone Number STEPHANIE BAER [address] [facility] [place] [address] * (ABNORMAL) IgM (12/16/2024 9:27 AM CDT) Pathologist [facility] Immunoglobulin M <25(L) 40 - 150 mg/dL Blood 12/16/2024 9:27 AM CDT 12/16/2024 10:49 AM CDT Xander Gutiérrez MD LAB BLOOD ORDERABLES Final Resul t Performing Organization Address [facility] Co de Phone Number STEPHANIE BAER [phone] [address] [facility] [place] [address] * (ABNORMAL) IgG (12/16/2024 9:27 AM CDT) Pathologist [facility] Immunoglobulin G <300(L) 700 - 1,600 mg/dL Blood 12/16/2024 9:27 AM CDT 12/16/2024 10:49 AM CDT Xander Gutiérrez MD LAB BLOOD ORDERABLES Final Resul t Performing Organization Address [facility] de Phone Number STEPHANIE BAER [address] [address] [facility] [place] [address] * (ABNORMAL) Comprehensive metabolic panel (12/16/2024 9:27 AM CDT) [facility] Sodium 141 135 - 145 mmol/L Comment:Testing performed by : [facility] [place] [address] Potassium, pl 4.0 3.3 - 4.9 mmol/L CERNER CH Comment:Testing performed by : [facility] [place] [address] Chloride 104 97 - 110 mmol/L CERNER CH Comment:Testing performed by : [facility] [place] [address] CO2 26 22 - 32 mmol/L CERNER CH Comment:Testing performed by : [facility] [place] [address] Anion gap 11 2 - 15 mmol/L CERNER CH Comment:Testing performed by : [facility] [place] [address] BUN 14 6 - 25 mg/dL CERNER CH Comment:Testing performed by : [facility] [place] [address] Creatinine 0.75 0.60 - 1.10 mg/dL CERNER CH Comment:Testing performed by : [facility] [place] [address] Glucose 106 70 - 199 mg/dL CERNER CH Comment: [...] classification and Diagnosis of Diabetes Diabetes Care 2021; 46: S19-S40. Current interpretive data was last revised 2022. Testing performed by: [facility] [place] [address] Calcium 8.7 8.5 - 10.3 mg/dL CERNER CH Comment:Testing performed by : [facility] [place] [address] Bilirubin, total 0.4 0.1 - 1.2 mg/dL CERNER CH Comment:Testing performed by : [facility] [place] [address] Protein, pl 5.7(L) 6.5 - 8.5 g/dL CERNER CH Comment:Testing performed by : [facility] [place] [address] Albumin 4.0 3.5 - 5.0 g/dL CERNER CH Comment:Testing performed by : [facility] [place] [address] Alk phos 78 40 - 130 Units/L CERNER CH Comment:Testing performed by : [facility] [place] [address] ALT 15 7 - 45 Units/L CERNER CH Comment:Testing performed by : [facility] [place] [address] AST 19 10 - 45 Units/L CERNER CH Comment:Testing performed by : [facility], [place] [address] Blood 12/16/2024 9:27 AM CDT 12/16/2024 9:30 AM CDT us Xander Gutiérrez MD LAB BLOOD ORDERABLES Final Resul t STEPHANIE [address] [address] Department [place] [address] * eGFR (11/18/2024 2:20 PM CDT) eGFR 84 >=60 mL/min/1. 73 m2 Comment: Interpretive Data [...] Current interpretive data was last reviewed 2020. Blood 11/18/2024 2:20 PM CDT 11/18/2024 2:30 PM CDT us Colleen Jaffe NP LAB BLOOD ORDERABLES Fin al Result [facility] Department [place] [address] * (ABNORMAL) Differential, auto (11/18/2024 2:20 PM CDT) Neutrophil abs 9.14(H) 1.50 - 6.50 K/cumm Comment:Testing performed by : [facility], [address] [place], [place] [id number] Lymphocyte abs 1.04 0.80 - 3.30 K/cumm CERNER [facility] Comment:Testing performed by : [facility], [address] [place], [place] [id number] Monocyte abs 0.08(L) 0.20 - 0.80 K/cumm [facility]ER [facility] Comment:Testing performed by : [facility], [address] [place], [place] [phone] Eosinophil abs 0.01 0.00 - 0.50 K/cumm [facility]ER [facility] Comment:Testing performed by : [facility], [address] [place] [address] Basophil abs 0.01 0.00 - 0.10 K/cumm [facility]ER [facility] Comment:Testing performed by : [facility], [address] [place], [place] [phone] Neutrophil pct 89.0 % C[facility]ER [facility] Comment: Interpretive Data Percent cell count reference ranges are not reported, since discordance with absolute values may lead to misinterpretation of CBC data. Current Interpretive Data was last revised on 2017. Testing performed by: [facility], [address] [place], [place] [phone] Lymphocyte pct 10.1 % [facility]ER [facility] Comment: Interpretive Data Percent cell count reference ranges are not reported, since discordance with absolute values may lead to misinterpretation of CBC data. Current Interpretive Data was last revised on 2017. Testing performed by: [facility], [address] [place], [place] [phone] Monocyte pct 0.8 % [facility]ER [facility] Comment: Interpretive Data Percent cell count reference ranges are not reported, since discordance with absolute values may lead to misinterpretation of CBC data. Current Interpretive Data was last revised on 2017. Testing performed by: [facility], [address] [place], [place] [phone] Eosinophil pct 0.0 % [facility]ER [facility] Comment: Interpretive Data Percent cell count reference ranges are not reported, since discordance with absolute values may lead to misinterpretation of CBC data. Current Interpretive Data was last revised on 2017. Testing performed by: [facility], [address] [place] [phone] Basophil pct 0.1 % STEPHANIE [facility] Comment: Interpretive Data Percent cell count reference ranges are not reported, since discordance with absolute values may lead to misinterpretation of CBC data. Current Interpretive Data was last revised on 2017. Testing performed by: [facility], [address] [place] [phone] Blood 11/18/2024 2:20 PM CDT 11/18/2024 2:28 PM CDT us Colleen Jaffe HOOP COILER LAB BLOOD ORDERABLES Fin al Result [facility] Department [place] [address] * (ABNORMAL) Immunoglobulin free light chains (11/18/2024 2:20 PM CDT) [place]/Lambda ratio BJ 17.14(H) 0.26 - 1.65 Comment: Interpretive Data The Binding Site FreeLite assay procedure was used. Results from different manufacturers or methods may not be comparable. Serial testing should be performed using the same methods and instrumentation. Current Interpretive Data was last revised on 2023. [place] free light chain BJ 10.80(H) 0.33 - 1.94 mg/dL STEPHANIE [facility] Comment: Interpretive Data The Binding Site FreeLite assay procedure was used. Results from different manufacturers or methods may not be comparable. Serial testing should be performed using the same methods and instrumentation. Current Interpretive Data was last revised on 2023. Lambda free light chain BJ 0.63 0.57 - 2.63 mg/dL STEPHANIE [facility] Comment: Interpretive Data The Binding Site FreeLite assay procedure was used. Results from different manufacturers or methods may not be comparable. Serial testing should be performed using the same methods and instrumentation. Current Interpretive Data was last revised on 2023. Blood 11/18/2024 2:20 PM CDT 11/18/2024 3:35 PM CDT us Colleen Jaffe HOOP COILER LAB BLOOD ORDERABLES Fin al Result [facility] Department [place] [address] * (ABNORMAL) CBC with auto differential (11/18/2024 2:20 PM CDT) WBC 10.27(H) 3.80 - 9.90 K/cumm Comment:Testing performed by : [facility], [address] [place] [address] Hgb 11.6(L) 11.9 - 15.5 g/dL STEPHANIE RICK Comment:Testing performed by : [facility], [address] [place] [address] Hct 35.1(L) 35.6 - 45.5 % CERUSAMA [facility] Comment:Testing performed by : [facility], [address] [place] [address] Plt 152 150 - 400 K/cumm STEPHANIE RICK Comment:Testing performed by : [facility], [address] [place] [address] MPV 9.4 6.8 - 10.4 fL CERUSAMA BJ Comment:Testing performed by : [facility], [address] [place] [address] RBC 3.62(L) 3.90 - 5.20 M/cumm CERUSAMA BJ Comment:Testing performed by : [facility], [address] [place] [address] MCV 97.0(H) 81.3 - 96.4 fL CERUSAMA BJ Comment:Testing performed by : [facility], [address] [place] [address] MCH 32.1 27.1 - 33.3 pg CERUSAMA [facility] Comment:Testing performed by : [facility], [address] [place] [phone] MCHC 33.1 32.3 - 35.7 g/dL STEPHANIE [facility] Comment:Testing performed by : [facility], [address] [place] [phone] RDW CV 13.8 11.1 - 14.9 % STEPHANIE [facility] Comment:Testing performed by : [facility], [address] [place] [phone] NRBC abs 0.00 0.00 - 0.01 K/cumm STEPHANIE [facility] Comment:Testing performed by : [facility], [address] [place] [phone] Blood 11/18/2024 2:20 PM CDT 11/18/2024 2:28 PM CDT Colleen Jaffe HOOP COILER LAB BLOOD ORDERABLES Fin al Result [facility] Department [place] [address] * (ABNORMAL) Protein electrophoresis with reflex, serum with interpretation (11/18/2024 2:20 PM CDT) Protein, sr 6.1(L) 6.2 - 8.2 g/dL Albumin 3.9 3.2 - 5.0 g/dL [facility] Alpha-1 globulin 0.4 0.2 - 0.4 g/dL [facility] Alpha-2 globulin 0.8 0.5 - 1.0 g/dL [facility] Beta-1 globulin 0.4 0.3 - 0.6 g/dL [facility] Beta-2 globulin 0.3 0.2 - 0.6 g/dL [facility] Gamma globulin 0.3(L) 0.5 - 1.7 g/dL [facility] SPEP interp Please see comment STEPHANIE [facility] Comment: No apparent monoclonal peak Decreased gamma globulins Electrophoretic pattern appears similar to previous sample 09/17/2024 Reviewed and signed by Yeny Luna MD, PhD 11/20/2024 Blood 11/18/2024 2:20 PM CDT 11/18/2024 3:35 PM CDT oClleen Jaffe NP LAB BLOOD ORDERABLES Fin al Result Performing Organization Address [facility] Co de Phone Number [facility] [place] [address] * Lactate dehydrogenase (LD) (11/18/2024 2:20 PM CDT) Lactate dehydrogenase (LDH) 211 100 - 250 Units/L Blood 11/18/2024 2:20 PM CDT 11/18/2024 2:30 PM CDT Colleen Jaffe NP LAB BLOOD ORDERABLES Fin al Result Performing Organization Address [facility] de Phone Number [facility] Department [place] [address] * (ABNORMAL) IgA (11/18/2024 2:20 PM CDT) Pathologist [facility] Immunoglobulin A 40(L) 70 - 400 mg/dL Blood 11/18/2024 2:20 PM CDT 11/18/2024 3:23 PM CDT Colleen Jaffe NP LAB BLOOD ORDERABLES Fin al Result Performing Organization Address [facility] [place] [address] * (ABNORMAL) IgM (11/18/2024 2:20 PM CDT) Immunoglobulin M <25(L) 40 - 230 mg/dL Blood 11/18/2024 2:20 PM CDT 11/18/2024 3:23 PM CDT Colleen Hubbardradha HOOP COILER LAB BLOOD ORDERABLES Fin al Result [facility] Department [place] [address] * (ABNORMAL) IgG (11/18/2024 2:20 PM CDT) Pathologist [facility] Immunoglobulin G 320(L) 700 - 1,600 mg/dL Blood 11/18/2024 2:20 PM CDT 11/18/2024 3:23 PM CDT Colleen Jaffe LAB BLOOD ORDERABLES Fin al Result Performing Organization Address [facility] de Phone Number [facility] Department [place] [address] * (ABNORMAL) Comprehensive metabolic panel (11/18/2024 2:20 PM CDT) [facility] Sodium 139 135 - 145 mmol/L Potassium, pl 4.5 3.3 - 4.9 mmol/L [facility] Chloride 103 97 - 110 mmol/L [facility] CO2 24 22 - 32 mmol/L [facility] Anion gap 12 2 - 15 mmol/L [facility] BUN 18 6 - 25 mg/dL [facility] Creatinine 0.75 0.60 - 1.10 mg/dL [facility] Glucose 194 70 - 199 mg/dL [facility] Comment: Interpretive Data Fasting glucose >/= 126 [...] classification and Diagnosis of Diabetes Diabetes Care 2021; 46: S19-S40. Current interpretive data was last revised 2022. Calcium 9.1 8.5 - 10.3 mg/dL [facility] Bilirubin, total 0.4 0.1 - 1.2 mg/dL [facility] Protein, pl 6.3(L) 6.5 - 8.5 g/dL [facility] Albumin 4.2 3.5 - 5.0 g/dL [facility] Alk phos 91 40 - 130 Units/L [facility] ALT 15 7 - 45 Units/L [facility] AST 20 10 - 45 Units/L [facility] Blood 11/18/2024 2:20 PM CDT 11/18/2024 2:30 PM CDT us Colleen Jaffe HOOP COILER LAB BLOOD ORDERABLES Fin al Result [facility] Department [place] [address] * Hepatitis panel, acute (03/08/2021 9:47 AM TECHNICAL DATA ANALYST) Hep A IgM Nonreactive Nonreactive [facility] Comment: Interpretive Data: If Hep A IgM Ab is reported as Equivocal, a new sample should be drawn in two weeks for testing. Current interpretive data was last revised on 19. Hep B core IgM Nonreactive Nonreactive [facility] Comment: Interpretive Data If HepB Core IgM Ab is reported as Equivocal, a new sample should be drawn in two weeks for testing. Current interpretive data was last revised on 19. Hep C Ab Nonreactive Nonreactive [facility] Comment: Interpretive Data Nonreactive: Antibodies to HCV not detected. Does NOT exclude the possibility of recent exposure to HCV. Equivocal: Equivocal for HCV antibodies. Supplemental molecular testing will be automatically performed to determine infection status in accordance with current CDC screening recommendations. Reactive: Positive for HCV antibodies. This may represent current or past HCV infection. Supplemental molecular testing will be automatically performed to determine current infection status in accordance with current CDC screening recommendations. Interpretive data was last revised on 2019. HepBsAg Nonreactive Nonreactive [facility] Blood 03/08/2021 9:47 AM TECHNICAL DATA ANALYST 03/08/2021 10:42 AM TECHNICAL DATA ANALYST Xander Gutiérrez MD LAB MICROBIOLOGY - GENERAL ORDER [place]AKHWINDER Final Result Performing Organization Address City/State/ZIP Co ne Phone Number STEPHANIE [address] [facility] [place] [address] * BONE MINERAL DENSITY (08/01/2012) Anatomical Region Laterality Modality Radiographic Aaliyah ging Narrative 08/01/2012 Ordered by an unspecified provider. Historical Provider IMG DXA PROCEDURES Final Result from Last 3 Months or Most Recently Relevant to Health Maintenance Insurance AETNA MEDICARE AETNA MEDICARE AETNA MEDICARE UHC MEDICARE ADVANTAGE Advance Directives For more information, please contact: [phone] * Full Code (Latest Code Status on File) Date Activated Date Inactivated Comments 07/31/2023 2:46 PM 08/07/2023 7:24 PM * Full Code Date Activated Date Inactivated Comments 02/28/2022 8:00 PM 03/05/2022 4:55 PM * Full Code Date Activated Date Inactivated Comments 02/11/2021 12:23 PM 02/11/2021 7:15 PM * Full Code Date Activated Date Inactivated Comments 01/22/2021 7:37 PM 01/26/2021 7:50 PM * Full Code Date Activated Date Inactivated Comments 01/11/2021 1:13 PM 01/14/2021 7:19 PM Care Teams Production Boring Machine Operator Relationship Specialty Start Date End Date Alaina Luna MD PCP - General Family Medicine 09/27/21 Xander Gutiérrez MD Medical Oncologist/[facility] Medical Oncology 06/21/20 Miscellaneous, Not In File 11/19/20
--- OUTSIDE RECORDS SUMMARY | 2025-02-12 16:05 | XMS_ITS | Clinical Summary ---
Author Organization [facility] Address [address] [place] [address] Care Team Providers Care Composition Worker Name Role Phone Unavailable Primary Care Provider Unavailabl e Source Comments [facility],non-owned Affiliates and Associated Physician Practices is amultiple site organization consisting of ambulatory clinics and hospital sitesin [place], [place], [place] and [place]. This disclosure is being madepursuant to the Care Everywhere program and may not contain all information available regarding this patient. Last updated 17.[facility] Health 123 Social History Tobacco Use Types Packs/Day Years Used Date Smoking Tobacco: Never Assessed Comments Unknown Sex and Gender Information Value Date Recorded Sex Assigned at Not on file Legal Sex Female 10:54 AM SAFETY ADMINISTRATOR Gender Identity Not on file Sexual Orientation Not on file Plan of Treatment Health Maintenance Due Date Last Done Comments COLOGUARD (AGES 45-75) - COLON CA SCREENING 1951 COLON MONITORING 1951 COLONOSCOPY - COLON CA SCREENING 1950 CT COLONOGRAPHY - COLON CA SCREENING 1950 Colorectal Cancer Screening 1950 FIT - COLON CA SCREENING 1950 FLEX SIG - COLON CA SCREENING 1950 LIPID TESTING 1950 MAMMOGRAM 1950 HEPATITIS C SCREENING 09/27/1969 DTAP/TDAP/TD VACCINES (1 - Tdap) 10/01/1970 PNEUMOCOCCAL VACCINE 50+ (1 of 1 - PCV) 10/01/2001 ZOSTER VACCINE (1 of 2) 10/01/2001 DEPRESSION SCREENING 02/27/2024 MEDICARE AWV CALENDAR YEAR 2024 COVID-19 VACCINE ( season) 2024 12/06/2022, 01/06/2022, 03/06/2021 Respiratory Syncytial Virus (RSV) Vaccine Pt: or over 60 yrs (1 - 1-dose 75+ series) 10/01/2026 BONE DENSITY TESTING Completed 08/01/2012 INFLUENZA VACCINE Completed 12/08/2024, , 12/23/2021, Additional history exists HEPATITIS B VACCINE Aged Out No longe r eligible based on patient's age to complete this topic HIB VACCINE Aged Out No longer eligi ble based on patient's age to complete this topic HPV VACCINE Aged Out No longer eligi ble based on patient's age to complete this topic MENINGOCOCCAL (Group B) VACCINE SHARED DECISION-MAKING Aged Out No longer eligible based on patient's age to complete this topic MENINGOCOCCAL GROUPS A/C/Y/W VACCINE Aged Out No longer eligible based on patient's age to complete this topic Insurance [facility] MANAGED MEDICARE ADV AET MEDICARE ADV
--- OUTSIDE RECORDS SUMMARY | 2025-02-12 16:05 | XMS_ITS | Encounter Summary ---
Author Organization [facility] Address [address] [place] [address] Phone Care Team Providers Care Beef Farmer Name Role Phone Lm Sharma MD Primary Care Provider [phone] Xander Gutiérrez MD Unavailable Miscellaneous, Not In File Unavailable Unava ilable Alaina Luna MD Primary Care Provider + Encounter Details Date Type Department Care Team (Late st Contact Info) Description 08/25/2021 Telephone [facility] Marrow Transplant [address] [facility] 7th Floor, [place] [address] Colleen Rose V. Social History Tobacco Use Types Packs/Day Years [...] on file Legal Sex Female 11:50 PM WEATHER STRIPPER Gender Identity Female 06/14/2020 9:57 AM CDT Sexual Orientation Not on file documented as of this encounter Plan of Treatment Upcoming Encounters Date Type Department Care Team (Late st Contact Info) Description 02/16/2025 8:26 AM WEATHER STRIPPER Hospital Encounter [facility] [place] [address] documented as of this encounter Visit Diagnoses Not on filedocumented in this encounter Additional Health Concerns Infection Onset Date Last Indicated Resolved Time COVID: Suspected 02/12/2022 02/12/2022 02/12/2022 11:57 AM WEATHER STRIPPER Rhino/Enterovirus 02/12/2022 02/12/2022 02/19/2022 3:05 AM WEATHER STRIPPER COVID: Suspected 02/28/2022 02/28/2022 02/28/2022 5:54 PM WEATHER STRIPPER COVID: Suspected 07/31/2023 07/31/2023 07/31/2023 4:33 PM CDT COVID: Suspected 08/03/2023 08/03/2023 08/03/2023 12:19 PM CDT Rhino/Enterovirus 11/19/2023 11/19/2023 11/26/2023 3:05 AM CDT documented as of this encounter Care Teams Beef Farmer Relationship Specialty Start Date End Date Lm Sharma MD [address] [place] [address] PCP - General 05/10/16 09/26/21 Alaina Luna MD PCP - General Family Medicine 09/27/21 Xander Gutiérrez MD [address] [place] [address] Medical Oncologist/Human Resources Services Specialist Medical Oncology 06/21/20 Miscellaneous, Not In File 11/19/20 documented as of this encounter
--- OUTSIDE RECORDS SUMMARY | 2025-02-12 16:05 | XMS_ITS | Encounter Summary ---
Author Organization [facility] Address [address] [place] [address] Care Team Providers Care Vessel Operator Name Role Phone Unavailable Primary Care Provider Unavailabl e Encounter Details Date Type Department Care Team (Late st Contact Info) Description 01/28/[address] [facility] DermPath Lab [address] [facility], [facility] [place] [address] Romana Guerrero MD [address] [facility] [address] [place] [address] Social History Tobacco Use Types Packs/Day Years Used Date Smoking Tobacco: Never Assessed Comments Unknown Sex and Gender Information Value Date Recorded Sex Assigned at Not on file Legal Sex Female 10:54 AM SCAFFOLDER Gender Identity Not on file Sexual Orientation Not on file documented as of this encounter Plan of Treatment Not on file documented as of this encounter Procedures Procedure Name Priority Date/Time Associated Diagnosis Comments DERMATOPATHOLOGY Routine 01/27/2019 12:0 0 AM SCAFFOLDER documented in this encounter Results * DERMATOPATHOLOGY (01/27/2019 12:00 AM SCAFFOLDER) Case Report Dermatopathology Report Case: [id number] Authorizing Provider: Romana Guerrero MD Collected: 01/27/2019 12:00 AM Ordering Location: [facility] Care DermPath Lab Received: 01/28/2019 06:09 AM Pathologist: Linda Redman MD Specimen: Skin, mid chest 9 1:17 PM SCAFFOLDER DERMATOPATHOLOGY LABORATORY Final Diagnosis Specimen A. 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 Hx of multiple myeloma, pink papule. 1:17 PM [facility] DERMATOPATHOLOGY LABORATORY Gross Description Specimen A: Received is one formalin filled container labeled with the patient's name and designated mid chest. The specimen consists of a shave measuring [id number]. Jar 0. 1:17 PM [facility] DERMATOPATHOLOGY LABORATORY Microscopic Description Specimen A. SKIN, mid chest: The epidermis shows parakeratosis, full thickness disorderly maturation of keratinocytes, mitoses at different levels, and dyskeratotic cells. 1:17 PM [facility] DERMATOPATHOLOGY LABORATORY Disclaimer An external and internal positive and negative controls are appropriate for the histochemical, immunohistochemical and immunofluorescence stain(s) in this case (if any), except where stated explicitly. The performance characteristics of the stain(s) cited in this report were developed and its performance characteristic determined by the Dermatopathology Laboratory at [facility], directed by Dr. Placido Redman. These tests need not be, and therefore are not, approved by the [place] Food and Drug Administration. The tests are used for clinical purposes. Billing Codes Specimen Charges Stain Charges 08833 1 1:17 PM [facility] DERMATOPATHOLOGY LABORATORY Embedded Images 1:17 PM [facility] DERMATOPATHOLOGY LABORATORY Pathology/Cytolog y TISSUE SPECIMEN FROM SKIN / Unknown 01/27/2019 01/28/2019 6:09 AM SCAFFOLDER us Romana Guerrero MD LAB - PATHOLOGY/CYTOLOGY ORD ERABLES Final Result DERMATOPATHOLOGY LABORATORY [facility] - Department of Dermatology [address] [place] [address], 5th [place] [address], [facility] [phone] documented in this encounter Visit Diagnoses Not on filedocumented in this encounter
--- OUTSIDE RECORDS SUMMARY | 2025-02-12 16:05 | XMS_ITS | Encounter Summary ---
Author Organization [facility] Address [address] [place] [address] Care Team Providers Care Community Manager Name Role Phone Lm Sharma MD Primary Care Provider [phone] Xander Gutiérrez MD Unavailable Miscellaneous, Not In File Unavailable Unava ilable Alania Luna MD Primary Care Provider + Encounter Details Date Type Department Care Team (Late st Contact Info) Description 11/20/2018 Orders Only [facility] [address] [place] [address] Scanning, Provider Social History Tobacco Use Types Packs/Day Years Used Date Smoking Tobacco: Former Comments Unknown Sex and Gender Information Value Date Recorded Sex Assigned at Not on file Legal Sex Female 11:50 PM FORTUNE TELLER Gender Identity Female 06/14/2020 9:57 AM CDT Sexual Orientation Not on file documented as of this encounter Plan of Treatment Upcoming Encounters Date Type Department Care Team (Late st Contact Info) Description 02/16/2025 8:26 AM FORTUNE TELLER Hospital Encounter [facility] [place] [address] documented as of this encounter Procedures Procedure Name Priority Date/Time Associated Diagnosis Comments SCAN - LABS 11/20/2018 documented in this encounter Results * SCAN - LABS (11/20/2018) us Provider Scanning Final Result documented in this encounter Visit Diagnoses Not on filedocumented in this encounter Additional Health Concerns Infection Onset Date Last Indicated Resolved Time COVID: Suspected 04/30/2020 05/01/2020 05/02/2020 4:28 AM FORTUNE TELLER COVID: Suspected 11/18/2020 11/18/2020 11/18/2020 11:19 PM CDT COVID: Suspected 01/22/2021 01/22/2021 01/23/2021 11:04 PM FORTUNE TELLER COVID: Suspected 02/12/2022 02/12/2022 02/12/2022 11:57 AM FORTUNE TELLER Rhino/Enterovirus 02/12/2022 02/12/2022 02/19/2022 3:05 AM FORTUNE TELLER COVID: Suspected 02/28/2022 02/28/2022 02/28/2022 5:54 PM FORTUNE TELLER COVID: Suspected 07/31/2023 07/31/2023 07/31/2023 4:33 PM CDT COVID: Suspected 08/03/2023 08/03/2023 08/03/2023 12:19 PM CDT Rhino/Enterovirus 11/19/2023 11/19/2023 11/26/2023 3:05 AM CDT documented as of this encounter Care Teams Community Manager Relationship Specialty Start Date End Date Lm Sharma MD [address] [place] [address] PCP - General 05/10/16 09/26/21 Alaina Luna MD PCP - General Family Medicine 09/27/21 Xander Gutiérrez MD [address] [place] [address] Medical Oncologist/Gelatin Powder Mixer Medical Oncology 06/21/20 Miscellaneous, Not In File 11/19/20 documented as of this encounter
--- OUTSIDE RECORDS SUMMARY | 2025-02-12 16:05 | XMS_ITS | Encounter Summary ---
Author Organization [facility] Address [address] [facility] [place] [address] Care Team Providers Care Reel Man Name Role Phone Unavailable Primary Care Provider Unavailabl e Encounter Details Date Type Department Care Team (Late st Contact Info) Description 03/14/2019 Lab Requisition [facility] DermPath Lab [address] [facility], [facility] [place] [address] Romana Guerrero MD [address] [facility] [address] [place] [address] Social History Tobacco Use Types Packs/Day Years Used Date Smoking Tobacco: Never Assessed Comments Unknown Sex and Gender Information Value Date Recorded Sex Assigned at Not on file Legal Sex Female 10:54 AM ASSISTANT MANAGER RETAIL Gender Identity Not on file Sexual Orientation Not on file documented as of this encounter Plan of Treatment Not on file documented as of this encounter Procedures Procedure Name Priority Date/Time Associated Diagnosis Comments DERMATOPATHOLOGY Routine 03/13/2019 12:0 0 AM ASSISTANT MANAGER RETAIL documented in this encounter Results * DERMATOPATHOLOGY (03/13/2019 12:00 AM ASSISTANT MANAGER RETAIL) Case Report Dermatopathology Report Case: [id number] Authorizing Provider: Romana Guerrero MD Collected: 03/13/2019 12:00 AM Ordering Location: [facility] Care DermPath Lab Received: 03/14/2019 06:27 AM Pathologist: Pooja Taylor MD Specimen: Skin, mid chest 0 12:54 PM ASSISTANT MANAGER RETAIL DERMATOPATHOLOGY LABORATORY Final Diagnosis Specimen A. SKIN, mid chest: DERMAL SCAR RESIDUAL SQUAMOUS CELL CARCINOMA NOT IDENTIFIED (L90.5) 0 12:54 PM ASSISTANT MANAGER RETAIL DERMATOPATHOLOGY LABORATORY at 1254 ASSISTANT MANAGER RETAIL Clinical History R/O SCCis, biopsy proven. 0 12:54 PM [facility] DERMATOPATHOLOGY LABORATORY Gross Description Specimen A: Received is one formalin filled container labeled with the patient's name and designated mid chest.The specimen consists of an ellipse measuring [id number] mm and is oriented with the notch at the 3 o'clock position labeled on the requisition as excision with notch. There is a previous biopsy site at the center of the epidermal surface that measures 4x4mm. The 12 to 6 o'clock margin is inked green. The 6 o'clock to 12 o'clock margin is inked black. The 12 o'clock tip is submitted in cassette 1. The 6 o'clock tip is submitted in cassette 2. The remainder of the ellipse is serially sectioned and submitted in cassettes 3-4. Jar 0. 0 12:54 PM [facility] DERMATOPATHOLOGY LABORATORY Microscopic Description Specimen A. SKIN, mid chest: There are fibroblasts and collagen bundles oriented parallel to the skin surface. There are elongated blood vessels, some of which are oriented perpendicular to the skin surface. No residual squamous cell carcinoma is identified. 0 12:54 PM [facility] DERMATOPATHOLOGY LABORATORY Disclaimer An external and internal positive and negative controls are appropriate for the histochemical, immunohistochemical and immunofluorescence stain(s) in this case (if any), except where stated explicitly. The performance characteristics of the stain(s) cited in this report were developed and its performance characteristic determined by the Dermatopathology Laboratory at [facility], directed by Dr. Placido Redman. These tests need not be, and therefore are not, approved by the [place] Food and Drug Administration. The tests are used for clinical purposes. Billing Codes Specimen Charges Stain Charges 82687 1 0 12:54 PM [facility] DERMATOPATHOLOGY LABORATORY Embedded Images 0 12:54 PM [facility] DERMATOPATHOLOGY LABORATORY Pathology/Cytolog y TISSUE SPECIMEN FROM SKIN / Unknown 03/13/2019 03/14/2019 6:27 AM [facility] us Romana Guerrero MD LAB - PATHOLOGY/CYTOLOGY ORD ERABLES Final Result DERMATOPATHOLOGY LABORATORY [facility] - Department of Dermatology [address] [facility], 5th Floor Lab B [address] [phone] documented in this encounter Visit Diagnoses Not on filedocumented in this encounter
--- OUTSIDE RECORDS SUMMARY | 2025-02-12 16:05 | XMS_ITS | Encounter Summary ---
Author Organization [facility] Address [address] [place] [address] Care Team Providers Care Instrument Worker Name Role Phone Josh Sharma MD Primary Care Provider [phone] Encounter Details Date Type Department Care Team (Latest Contact Info) Description 10/17/2007 Outpatient Historical [facility] Dflt Department Cecilio Mendez MD [address] [facility] [address] [place] [address] Routine Gynecological Examination Social History Tobacco Use Types Packs/Day Years Used Date Smoking Tobacco: Never Assessed Comments Unknown Sex and Gender Information Value Date Recorded Sex Assigned at Not on file Legal Sex Female 5:35 AM MAIL DISTRIBUTION CLERK Gender Identity Not on file Sexual Orientation Not on file documented as of this encounter Plan of Treatment Upcoming Encounters Date Type Department Care Team (Late st Contact Info) Description 03/05/2025 10:30 AM MAIL DISTRIBUTION CLERK Appointment [facility] [place] A [address] [place] [address] Alaina Luna MD [address] [facility] [address] [place] [address] documented as of this encounter Procedures Procedure Name Priority Date/Time Associated Diagnosis Comments CERV/VAG CYTOPATH, SUREPATH W/RFLX HPV Routine 10/17/2007 10:02 PM CDT documented in this encounter Results * CERV/VAG CYTOPATH, SUREPATH W/RFLX HPV (10/17/2007 10:02 PM CDT) SOURCE Cervix, Endocervix S [facility] LAST MENSTRUAL PERIOD 05/29 [facility] CYTOTECHNOLOGI ST: MARISA WEIR(ASCP) [facility] Comment: Lab test performed by: [employer] [address] [address] LIZZ SYED MD PAP INTERP Negative for intraepithelial lesion or malignancy. Atrophic pattern; predominantly parabasal cells [facility] PREV BX: Information not provided [facility] REPORT STATUS FINAL [facility] Marble And Granite Polisher Pap Comment Based on the cytology result, reflex High Risk HPV DNA testing was not performed. [facility] PREV PAP: Information not provided [facility] ADEQUACY: SATISFACTORY FOR EVALUATION [facility] CLINICAL INFORMATION Normal exam Postmenopausal [facility] Specimen from uterine cervix (specimen) 10/17/2007 10:02 PM CDT 10/17/2007 10:47 PM CDT us Cecilio Mendez MD PATHOLOGY/CYTOLOGY ORDERABLE S Final Result INTERFACE SYSTEM Refer to clinic/hospital department [facility] CLIA# [id number] [address] [place] [address] documented in this encounter Visit Diagnoses Diagnosis Routine gynecological examination documented in this encounter Care Teams Instrument Worker Relationship Specialty Start Date End Date Josh Sharma MD [address] [place] [address] PCP - General Family Practice 11/14/10 documented as of this encounter
[2025-02-12 19:25] LABS: Thyroid Stimulating Hormone 2.690 uIU/mL (0.465-4.680)
== END 2025-02-12 15:30 | disposition home or self-care (01) ==
LOC: ANHGOSHLAB 15:29
PROVIDERS: PCP Family Medicine; Visit Provider Family Medicine
DX: G25.2 Other specified forms of tremor (principal)
CPT/HCPCS: 36415; 84443